=== PATIENT | male | born 1935 | race Caucasian/White ===

== ENCOUNTER → 2017-07-15 | Outpatient (CLI) | payer MEDICARE ==
[2017-07-15 15:01] LABS: BASOPHILS % (AUTO) 0 % (0-10); EOSINOPHILS # (AUTO) 0.1 10^3/uL (0.0-0.3); EOSINOPHILS % (AUTO) 1 % (0-10); HEMATOCRIT 44 % (40-54); HEMOGLOBIN 14.6 G/DL (13.3-17.7); LYMPHOCYTES # (AUTO) 1.3 X 10^3 (1.0-4.0); LYMPHOCYTES % (AUTO) 15 % (12-44); MEAN CORPUSCULAR HEMOGLOBIN 32 PG (25-34); MEAN CORPUSCULAR HGB CONC 33 G/DL (32-36); MEAN CORPUSCULAR VOLUME 98 FL (80-99); MEAN PLATELET VOLUME 10.5 FL (7.4-10.4); MONOCYTES # (AUTO) 0.9 X 10^3 (0.0-1.0); MONOCYTES % (AUTO) 10 % (0-12); NEUTROPHILS # (AUTO) 6.7 X 10^3 (1.8-7.8); NEUTROPHILS % (AUTO) 74 % (42-75); PLATELET COUNT 282 10^3/uL (130-400); RED BLOOD COUNT 4.55 10^6/uL (4.35-5.85); RED CELL DISTRIBUTION WIDTH 14.1 % (10.0-14.5)
[2017-07-15 15:16] LABS: ALANINE AMINOTRANSFERASE 32 U/L (0-55); ALBUMIN 4.1 GM/DL (3.2-4.5); ALKALINE PHOSPHATASE 84 U/L (40-136); BILIRUBIN,TOTAL 1.3 MG/DL (0.1-1.0); BUN/CREATININE RATIO 23; CALCIUM 9.3 MG/DL (8.5-10.1); CARBON DIOXIDE 21 MMOL/L (21-32); CHLORIDE 109 MMOL/L (98-107); CREATININE SERUM 0.94 MG/DL (0.60-1.30); GFR ESTIMATED > 60; GLUCOSE 117 MG/DL (70-105); POTASSIUM 4.6 MMOL/L (3.6-5.0); SODIUM 140 MMOL/L (135-145); TOTAL PROTEIN 7.4 GM/DL (6.4-8.2)
== END ==
LOC: CARD 14:45
PROVIDERS: ATTEND Nurse Practitioner Family
DX: R53.83 Other fatigue (principal); R06.02 Shortness of breath; R60.0 Localized edema; I52 Other heart disorders in diseases classified elsewhere
CPT/HCPCS: 36415; 80053; 83880; 84443; 85025; 93005

== ENCOUNTER → 2017-07-16 | Outpatient (CLI) | payer MEDICARE ==
[~2017-07-16] MED LIST: ACET-2267 PO; ACET-77 PO; APIX5TAB PO; BARIUM SUSPENSION 2.1% (VANILLA SILQ) 450 ML PO ONE; CATHETER FLUSH 10 ML SYR IV PRN; CHLO473M4 MM; ENAL5TAB PO; FURO40TA4 PO; IOHEXOL 350 MG/ML 100 ML (OMNIPAQUE 350) VIAL IV ONE; LEVO100T7 PO; LEVO50TA6 PO; MELA3TAB PO; METO-395 PO; METO5TAB6 PO; NS 250 ML (IVPB) BAG IV ONE; POTA-51 PO; POTA20TA8 PO; TRAZ-189 PO
--- NOTE | 2017-07-16 12:05 | Diagnostic Imaging Report ---
PROCEDURE: CT abdomen and pelvis with contrast. TECHNIQUE: Multiple contiguous axial images were obtained through the abdomen and pelvis after administration of intravenous contrast. INDICATION: Prostate carcinoma, followup. COMPARISON: Comparison is made with prior CT from 04/25/2015. FINDINGS: There has been development of moderate-sized bilateral pleural effusions. No basilar infiltrates or masses are seen. No discrete liver mass is identified. There appear to be small stones within the gallbladder. The cystic-appearing lesion in the region of the pancreatic head appears stable. No pancreatic or biliary duct dilatation is seen. The spleen is unremarkable. No adrenal mass is detected. The kidneys are unremarkable. The aorta is non-aneurysmal. The visualized bowel loops are normal caliber. There is extensive colonic diverticulosis but no evidence of acute diverticulitis. The small bowel is decompressed. There is a small amount of perihepatic ascites. There is also moderate free fluid identified in the pelvis. The bladder is decompressed. Postsurgical changes of prostatectomy are seen. There is some fluid in the presacral region. No inguinal or iliac lymphadenopathy is seen. No definite central retroperitoneal or mesenteric lymphadenopathy is seen. There are postoperative changes to the right hip. Sclerotic lesion in the sacrum on the left appears stable. No new sclerotic lesions are seen. There is significant lower lumbar degenerative change noted. IMPRESSION: 1. Development of moderate-sized bilateral pleural effusions. 2. Cholelithiasis. 3. Uncomplicated colonic diverticulosis. 4. Development of perihepatic and moderate pelvic free fluid, etiology indeterminate. No free air or loculated fluid collection is identified. Dictated by: Dictated on workstation # [id number]
--- NOTE | 2017-07-16 15:29 | Diagnostic Imaging Report ---
EXAM: Nuclear medicine whole body bone scan. DATE: July 16, 2017. INDICATION: 82-year-old male, history of prostate cancer. COMPARISON: Whole body bone scan, April 25, 2015. CT abdomen and pelvis, July 16, 2017. FINDINGS: 26.4 mCi of technetium-labeled MDP radiotracer was administered. Delayed subsequent whole body bone scan images were subsequently obtained. Additional projections at the level of the neck and thorax were also provided. There is urinary contamination present. The additional area of radiotracer uptake overlying midline may relate to radiotracer activity in the urinary bladder. There is radiotracer activity adjacent to the iliac side of the bilateral sacroiliac joints which is likely degenerative related. There is no identified radiotracer activity to correlate with the sclerotic lesion to the left of midline within the sacrum. This lesion measures larger in size on July 16, 2017, compared to prior CT chest, abdomen, and pelvis of March 16, 2012. Current size is 14 mm compared to 10 mm previously. Internal attenuation is measured at 947 Hounsfield units. There is radiotracer activity on the right at the level of L5 which is likely relating to degenerative changes. There is no identified radiotracer avid lesion which is concerning for bone metastasis. IMPRESSION: 1. Sclerotic lesion in the sacrum to the left of midline measures 14 mm in size on July 16, 2017, and approximately 10 mm in size on March 16, 2012. This lesion has slightly increased in size over that time span. The lesion is not radiotracer avid. Internal attenuation is measured at 947 Hounsfield units. This may potentially reflect a benign bone island. 2. No identified radiotracer avid lesion which is concerning for osteoblastic bone metastasis. Dictated by: Dictated on workstation # [id number]
== END ==
LOC: RAD 10:29
PROVIDERS: ATTEND Urology
DX: Z08 Encounter for follow-up examination after completed treatment for malignant neoplasm (principal); J90 Pleural effusion, not elsewhere classified; K80.20 Calculus of gallbladder without cholecystitis without obstruction; K57.30 Diverticulosis of large intestine without perforation or abscess without bleeding; M89.9 Disorder of bone, unspecified; Z85.46 Personal history of malignant neoplasm of prostate; Z90.79 Acquired absence of other genital organ(s)
CPT/HCPCS: 74177; 78306

== ENCOUNTER 2017-07-20 07:41 | Inpatient (IN) | payer MEDICARE ==
[~2017-07-20] VITALS: Ht 175.3 cm; Wt 86.6 kg
--- OUTSIDE RECORDS SUMMARY | 2017-07-20 07:46 | XMS REPORT | Continuity of Care Document ---
Author Author [facility] Organization [facility] Address Unknown Phone Unavailable Allergies Active Description Code Type Severity Reaction Onset Reported/Identified Relationship to Patient Clinical Status Yes No Known Drug Allergies [id number] Drug Allergy Unknown N/A 04/25/2015 Medications There is no data. Problems Date Dx Coded Attending Type Code Diagnosis Diagnosed By 10/31/2014 SOLOMON GONZALES, LE R Ot 719.45 10/31/2014 SOLOMON GONZALES, LE R Ot V15.88 11/01/2014 Ot 185 11/01/2014 CAROLINE GONZALES, TUNDE Navarro Ot 185 11/01/2014 CAROLINE GONZALES, UTNDE Navarro Ot 562.10 11/01/2014 TUNDE VELAZQUEZ MD Ot 574.20 11/01/2014 TUNDE VELAZQUEZ MD Ot 793.3 11/01/2014 SOLOMON GONZALES, LE R Ot 719.45 11/01/2014 SOLOMON GONZALES, LE R Ot V15.88 11/21/2014 SOLOMON GONZALES, LE R Ot 719.45 11/21/2014 SOLOMON GONZALES, LE R Ot V15.88 11/30/2014 SOLOMON GONZALES, LE R Ot 719.45 11/30/2014 SOLOMON GONZALES, LE R Ot V15.88 05/22/2015 Ot C61 05/23/2015 Ot C61 07/14/2017 Ot 185 MALIGN NEOPL PROSTATE 07/14/2017 CAROLINE GONZALES, TUNDE Navarro Ot 185 MALIGN NEOPL PROSTATE 07/14/2017 CAROLINE GONZALES, TUNDE Navarro Ot 562.10 DIVERTICULOSIS COLON (W/O MENT OF HEMORR 07/14/2017 CAROLINE GONZALES, TUNDE Navarro Ot 574.20 CHOLELITHIASIS NOS 07/14/2017 CAROLINE GONZALES, TUNDE Navarro Ot 793.3 NOSP (ABN) FINDINGS ON RADIOLOGICAL OT 07/14/2017 LE CARBAJAL MD R Ot 719.45 JOINT PAIN-PELVIS 07/14/2017 LE CARBAJAL MD Ot V15.88 HISTORY OF FALL 07/14/2017 Ot C61 MALIGNANT NEOPLASM OF PROSTATE 07/15/2017 Ot 185 MALIGN NEOPL PROSTATE 07/15/2017 TUNDE VELAZQUEZ MD Ot 185 MALIGN NEOPL PROSTATE 07/15/2017 TUNDE VELAZQUEZ MD Ot 562.10 DIVERTICULOSIS COLON (W/O MENT OF HEMORR 07/15/2017 TUNDE VELAZQUEZ MD Ot 574.20 CHOLELITHIASIS NOS 07/15/2017 TUNDE VELAZQUEZ MD Ot 793.3 NOSP (ABN) FINDINGS ON RADIOLOGICAL OT 07/15/2017 LE CARBAJAL MD Ot 719.45 JOINT PAIN-PELVIS 07/15/2017 LE CARBAJAL MD Ot V15.88 HISTORY OF FALL 07/15/2017 Ot C61 MALIGNANT NEOPLASM OF PROSTATE 07/16/2017 Ot 185 MALIGN NEOPL PROSTATE 07/16/2017 UTNDE VELAZQUEZ MD Ot 185 MALIGN NEOPL PROSTATE 07/16/2017 TUNDE VELAZQUEZ MD Ot 562.10 DIVERTICULOSIS COLON (W/O MENT OF HEMORR 07/16/2017 TUNDE VELAZQUEZ MD Ot 574.20 CHOLELITHIASIS NOS 07/16/2017 TUNDE VELAZQUEZ MD Ot 793.3 NOSP (ABN) FINDINGS ON RADIOLOGICAL OT 07/16/2017 LE CARBAJAL MD Ot 719.45 JOINT PAIN-PELVIS 07/16/2017 LE CARBAJAL MD Ot V15.88 HISTORY OF FALL 07/16/2017 Ot C61 MALIGNANT NEOPLASM OF PROSTATE 07/16/2017 ANNMARIE ARANA WIRELESS TELEGRAPHER Ot R53.83 OTHER FATIGUE 07/16/2017 ANNMARIE ARANA WIRELESS TELEGRAPHER Ot I52 OTHER HEART DISORDERS IN DISEASES CLASSI 07/16/2017 ANNMARIE ARANA WIRELESS TELEGRAPHER Ot R06.02 SHORTNESS OF BREATH 07/16/2017 ANNMARIE ARANA WIRELESS TELEGRAPHER Ot R53.83 OTHER FATIGUE 07/16/2017 ANNMARIE ARANA WIRELESS TELEGRAPHER Ot R60.0 LOCALIZED EDEMA Procedures There is no data. Results There is no data. Encounters ACCT No. Visit Date/Time Discharge Status Pt. Type Provider Facility Loc./Unit Complaint [id number] 07/16/2017 10:29:00 07/16/2017 23:59:59 CLS Outpatient TUNDE VELAZQUEZ MD [facility] RAD PROSTATE CANCER [id number] 07/15/2017 14:45:00 07/15/2017 23:59:59 CLS Outpatient ANNMARIE ARANA APRN [facility] CARD EDEMA OF BOTH LEGS, SOB,IRREGULAR HEART BEAT [id number] 07/06/2017 16:11:00 07/06/2017 23:59:59 CLS Preadmit TUNDE VELAZQUEZ MD [facility] RAD PROSTATE CANCER [id number] 10/29/2014 15:31:00 10/29/2014 23:59:59 CLS Outpatient LE CARBAJAL MD [facility] RAD 2 MO HX PAIN POST FALL [id number] 10/05/2013 10:46:00 10/05/2013 23:59:59 CLS Outpatient TUNDE VELAZQUEZ MD [facility] CARD PROSTATE CA [id number] 04/25/2015 11:49:00 Document Registration [id number] 03/16/2012 11:59:00 Document Registration [id number] 10/29/2014 15:35:24 ACT Document Registration
[2017-07-20 07:59] LABS: BASOPHILS % (AUTO) 0 % (0-10); EOSINOPHILS # (AUTO) 0.1 10^3/uL (0.0-0.3); EOSINOPHILS % (AUTO) 1 % (0-10); HEMATOCRIT 45 % (40-54); HEMOGLOBIN 14.7 G/DL (13.3-17.7); LYMPHOCYTES # (AUTO) 1.5 X 10^3 (1.0-4.0); LYMPHOCYTES % (AUTO) 14 % (12-44); MEAN CORPUSCULAR HEMOGLOBIN 33 PG (25-34); MEAN CORPUSCULAR HGB CONC 33 G/DL (32-36); MEAN CORPUSCULAR VOLUME 99 FL (80-99); MEAN PLATELET VOLUME 10.9 FL (7.4-10.4); MONOCYTES % (AUTO) 10 % (0-12); NEUTROPHILS # (AUTO) 8.1 X 10^3 (1.8-7.8); NEUTROPHILS % (AUTO) 75 % (42-75); PLATELET COUNT 251 10^3/uL (130-400); RED BLOOD COUNT 4.53 10^6/uL (4.35-5.85); RED CELL DISTRIBUTION WIDTH 14.7 % (10.0-14.5); WHITE BLOOD COUNT 10.7 10^3/uL (4.3-11.0)
[2017-07-20] MEDS ORDERED: VERAPAMIL 5 MG/2 ML (CALAN) VIAL IV ONE (08:15)
[2017-07-20 08:17] LABS: ALANINE AMINOTRANSFERASE 82 U/L (0-55); ALBUMIN 4.1 GM/DL (3.2-4.5); ALKALINE PHOSPHATASE 101 U/L (40-136); BILIRUBIN,TOTAL 1.8 MG/DL (0.1-1.0); BUN/CREATININE RATIO 20; CALCIUM 9.4 MG/DL (8.5-10.1); CARBON DIOXIDE 21 MMOL/L (21-32); CHLORIDE 108 MMOL/L (98-107); CREATININE SERUM 1.17 MG/DL (0.60-1.30); GFR ESTIMATED 60; GLUCOSE 137 MG/DL (70-105); POTASSIUM 4.5 MMOL/L (3.6-5.0); SODIUM 140 MMOL/L (135-145); TOTAL PROTEIN 7.3 GM/DL (6.4-8.2)
[2017-07-20 08:30] VITALS: BP 156/99
[2017-07-20 08:48] LABS: FREE T4 (FREE THYROXINE) 1.13 NG/DL (0.70-1.48)
--- NOTE | 2017-07-20 08:50 | Diagnostic Imaging Report ---
INDICATION: Shortness of breath PA and lateral chest obtained at 0839 a.m. There is no prior study for comparison. Heart is borderline enlarged. There is mild central vascular prominence without daysi edema. There is no consolidation or pneumothorax or pleural fluid. IMPRESSION: Borderline heart size with mild central vascular prominence. No daysi edema or consolidation or pleural fluid. Dictated by: Dictated on workstation # [id number]
[2017-07-20 08:55] VITALS: BP 129/85
--- NOTE | 2017-07-20 08:58 | ED General ---
General Chief Complaint: General Problems/Pain Stated Complaint: SOB,SWELLING OF LEGS AND TESTICLES Nursing Triage Note: TO ROOM REPORTS THAT HAS BEEN SOA FOR 2 WEEKS AFTER GETTING HORMONE IM AT DR VELAZQUEZ OFFICE. ALSO C/O SWELLING IN FEET,PANIC ATTACKS ,HIGH PSA, CRAMPING IN FEET AND LEGS. Nursing Sepsis Screen: No Definite Risk Source of Information: Patient, Old Records Exam Limitations: No Limitations History of Present Illness Date Seen by Provider: Jul 20, 2017 Time Seen by Provider: 07:45 Initial Comments This 82 year old gentleman presents to the ER with primary complaints of dyspnea and swelling in his legs, testicles and abdomen. He states these symptoms have been worsening for several days and notes that this started after receiving a "hormone injection" from Dr. Velazquez as treatment for a rising PSA. Patient also notes he has had muscle aching for years. This initially improved after stopping statins but has gradually worsened again. He denies any chest pain, cough, or fever. He has family history of congestive heart failure but no personal history of heart disease. Dr. Tejada is his primary care provider and Dr. Velazquez is his doll wig maker. He has atrial fibrillation on the monitor during assessment. He has no history of arrhythmias. Allergies and Home Medications Allergies Coded Allergies: No Known Drug Allergies (Unverified , 04/25/15) Patient Home Medication List Home Medication List Reviewed: Yes Review of Systems Constitutional: no symptoms reported EENTM: no symptoms reported Respiratory: see HPI Cardiovascular: see HPI Gastrointestinal: no symptoms reported Genitourinary: see HPI Musculoskeletal: see HPI Skin: no symptoms reported Psychiatric/Neurological: No Symptoms Reported Hematologic/Lymphatic: No Symptoms Reported Immunological/Allergic: no symptoms reported Past Chewkhf-Glgtfp-Fxbrjs Hx Patient Social History Alcohol Use: Denies Use Recreational Drug Use: No Smoking Status: Current Someday Smoker Type Used: Cigarettes Recent Foreign Travel: No Contact w/Someone Who Travel: No Recent Infectious Disease Expo: No Past Medical History Surgeries: Yes Orthopedic, Prostatectomy Respiratory: No Cardiac: Yes High Cholesterol Neurological: No Reproductive Disorders: Yes Genitourinary: Yes Prostate Problems Gastrointestinal: No Musculoskeletal: Yes Spasms Endocrine: Yes Hypothyroidsim HEENT: No Cancer: Yes Prostate Did You Recieve Any Treatments: No Psychosocial: Yes Anxiety Integumentary: No Family Medical History Heart Disease (multiple deaths in family members from CHF) Physical Exam Vital Signs Vital Signs - First Documented 07/20/17 07:41 Temp 96.5 Pulse 110 Resp 18 B/P (MAP) 198/3 (67) Pulse Ox 94 O2 Delivery Room Air Capillary Refill : Less Than 3 Seconds General Appearance: No Apparent Distress, WD/WN HEENT: PERRL/EOMI, Normal ENT Inspection Neck: Normal Inspection Respiratory: Lungs Clear, No Accessory Muscle Use, No Respiratory Distress, Decreased Breath Sounds (diminished breath sounds in the bases) Cardiovascular: Systolic Murmur, Irregularly Irregular, Tachycardia, Other ( pitting edema in the lower extremities bilateral and tense edema extending into the abdomen) Gastrointestinal: Normal Bowel Sounds, Non Tender, Distended Extremity: Pedal Edema, Swelling Neurologic/Psychiatric: Alert, Oriented x3, No Motor/Sensory Deficits, Normal Mood/Affect, surgical specialist II-XII Norm as Tested Skin: Normal Color, Warm/Dry Progress/Results/Core Measures Suspected Sepsis Recent Fever Within 48 Hours: No Infection Criteria Present: None New/Unexplained Altered Menta: No Sepsis Screen: No Definite Risk SIRS Temperature:96.5 Pulse: 82 Respiratory Rate: 18 Laboratory Tests 07/20/17 07:50: White Blood Count 10.7 Blood Pressure 156 /99 Mean: 118 Laboratory Tests 07/20/17 07:50: Creatinine 1.17, Platelet Count 251, Total Bilirubin 1.8H Results/Orders Lab Results Laboratory Tests Test 07/20/17 07:50 Range/Units White Blood Count 10.7 4.3-11.0 10^3/uL Red Blood Count 4.53 4.35-5.85 10^6/uL Hemoglobin 14.7 13.3-17.7 G/DL Hematocrit 45 40-54 % Mean Corpuscular Volume 99 80-99 FL Mean Corpuscular Hemoglobin 33 25-34 PG Mean Corpuscular Hemoglobin Concent 33 32-36 G/DL Red Cell Distribution Width 14.7 H 10.0-14.5 % Platelet Count 251 130-400 10^3/uL Mean Platelet Volume 10.9 H 7.4-10.4 FL Neutrophils (%) (Auto) 75 42-75 % Lymphocytes (%) (Auto) 14 12-44 % Monocytes (%) (Auto) 10 0-12 % Eosinophils (%) (Auto) 1 0-10 % Basophils (%) (Auto) 0 0-10 % Neutrophils # (Auto) 8.1 H 1.8-7.8 X 10^3 Lymphocytes # (Auto) 1.5 1.0-4.0 X 10^3 Monocytes # (Auto) 1.0 0.0-1.0 X 10^3 Eosinophils # (Auto) 0.1 0.0-0.3 10^3/uL Basophils # (Auto) 0.0 0.0-0.1 10^3/uL Sodium Level 140 135-145 MMOL/L Potassium Level 4.5 3.6-5.0 MMOL/L Chloride Level 108 H 98-107 MMOL/L Carbon Dioxide Level 21 21-32 MMOL/L Anion Gap 11 5-14 MMOL/L Blood Urea Nitrogen 23 H 7-18 MG/DL Creatinine 1.17 0.60-1.30 MG/DL Estimat Glomerular Filtration Rate 60 BUN/Creatinine Ratio 20 Glucose Level 137 H 70-105 MG/DL Calcium Level 9.4 8.5-10.1 MG/DL Total Bilirubin 1.8 H 0.1-1.0 MG/DL Aspartate Amino Transf (AST/SGOT) 74 H 5-34 U/L Alanine Aminotransferase (ALT/SGPT) 82 H 0-55 U/L Alkaline Phosphatase 101 40-136 U/L Troponin I < 0.30 <0.30 NG/ML C-Reactive Protein High Sensitivity 1.55 H 0.00-0.50 MG/DL B-Type Natriuretic Peptide 1021.0 H <100.0 PG/ML Total Protein 7.3 6.4-8.2 GM/DL Albumin 4.1 3.2-4.5 GM/DL Thyroid Stimulating Hormone (TSH) 5.70 H 0.35-4.94 UIU/ML Free Thyroxine 1.13 0.70-1.48 NG/DL My Orders Orders - HYUN MARTINEZ MD BNP (07/20/17 07:45) Cbc With Automated Diff (07/20/17 07:45) Comprehensive Metabolic Panel (07/20/17 07:45) Hs C Reactive Protein (07/20/17 07:45) Troponin I (07/20/17 07:45) Saline Lock/Iv-Start (07/20/17 07:45) Ekg Tracing (07/20/17 07:45) Monitor-Rhythm Ecg Trace Only (07/20/17 07:45) Chest Pa/Lat (2 View) (07/20/17 07:45) Verapamil Injection (Calan Injection) (07/20/17 08:15) Thyroid Stimulating Hormone (07/20/17 08:08) Free T4 (Free Thyroxine) (07/20/17 08:08) Apixaban Tablet (Eliquis Tablet) (07/20/17 09:45) Metoprolol Succinate (Xl) Tab (Toprol Xl (07/20/17 09:45) Furosemide Injection (Lasix Injection) (07/20/17 09:45) Medications Given in ED Current Medications Medications Dose Ordered Sig/Papo Route Start Time Stop Time Status Last Admin Dose Admin Apixaban 5 mg ONCE ONCE PO 07/20/17 09:45 07/20/17 09:46 07/20/17 09:41 5 MG Furosemide 80 mg ONCE ONCE IVP 07/20/17 09:45 07/20/17 09:46 07/20/17 09:40 80 MG Metoprolol Succinate 100 mg ONCE ONCE PO 07/20/17 09:45 07/20/17 09:46 07/20/17 09:41 100 MG Verapamil HCl 5 mg ONCE ONCE IV 07/20/17 08:15 07/20/17 08:16 DC 07/20/17 08:13 5 MG Vital Signs/I&O 07/20/17 07/20/17 07/20/17 07:41 08:30 08:55 Temp 96.5 Pulse 110 82 85 Resp 18 18 18 B/P (MAP) 198/3 (67) 156/99 (118) 129/85 (100) Pulse Ox 94 94 O2 Delivery Room Air Room Air Room Air Capillary Refill : Less Than 3 Seconds Blood Pressure Mean: 118 Progress Note : Progress Note Patient was noted to be in atrial fibrillation with RVR. He was also significantly hypertensive on initial assessment. He had notable fluid overload. He was given verapamil 5 mg by IV route which controlled his heart rate and blood pressure. Case was reviewed with Dr. Mcneill who requested Lasix 80 mg IV, Toprol-XL 100 mg by mouth, and Eliquis 5 mg. These were all administered in the emergency room. Patient was already feeling improved by the time of admission. CODE STATUS was discussed and patient wishes to be DNR. ECG Initial ECG Impression Date: Jul 20, 2017 Initial ECG Impression Time: 07:54 Initial ECG Rate: 111 Initial ECG Rhythm: A Fib/Flutter Initial ECG Impression: Atrial Fibrillation w/RVR Comment Atrial fibrillation with RVR. No acute ST elevation or depression to suggest ischemia. Diagnostic Imaging Diagonstic Imaging: Xray Plain Films/CT/US/NM/MRI: chest Comments Chest x-ray viewed by me and report reviewed. See report below: NAME: ARIANNA GIRARD [facility] REC#: [id number] PT STATUS: REG ER : 1935 PHYSICIAN: HYUN MARTINEZ MD ADMIT DATE: 07/20/17/ER Draft Date of Exam:07/20/17 CHEST PA/LAT (2 VIEW) INDICATION: Shortness of breath PA and lateral chest obtained at 0839 a.m. There is no prior study for comparison. Heart is borderline enlarged. There is mild central vascular prominence without daysi edema. There is no consolidation or pneumothorax or pleural fluid. IMPRESSION: Borderline heart size with mild central vascular prominence. No daysi edema or consolidation or pleural fluid. Dictated on workstation # [id number] Dict: 07/20/17 0835 Trans: 07/20/[address] [place] [address] [phone] Interpreted by: JARET OHARA MD Departure Communication (Admissions) Time/Spoke to Admitting Phy: 09:30 Dr. Medrano Time/Spoke to Consulting Phy: 09:30 Dr. Mcneill Impression Primary Impression: New onset atrial fibrillation Additional Impressions: Atrial fibrillation with RVR Fluid overload Qualified Codes: E87.70 - Fluid overload, unspecified Disposition: ADMITTED INPATIENT Condition: Improved Admissions Decision to Admit Reason: Admit from ER (General) Decision to Admit/Date: Jul 20, 2017 Time/Decision to Admit Time: 08:00 Departure-Patient Inst. Referrals: LE TEJADA MD (PCP/Family) Primary Care Physician HYUN MARTINEZ MD Jul 20, 2017 08:58
[2017-07-20] MEDS ORDERED: FUROSEMIDE 40 MG/4 ML INJ (LASIX) IVP ONE (09:45)
[2017-07-20] MEDS ORDERED: meTOproloL SUCCINATE 50 MG (TOPROL XL) TAB PO ONE (09:45)
[2017-07-20] MEDS ORDERED: APIXABAN 5 MG (ELIQUIS) TABLET PO ONE (09:45)
[2017-07-20 10:00] VITALS: BP 154/106
[2017-07-20] MEDS ORDERED: CATHETER FLUSH 10 ML SYR IV PRN (11:30)
--- NOTE | 2017-07-20 11:50 | Consultation-Cardiology ---
HPI-Cardiology Cardiology Consultation: Date of Consultation 07/20/17 Time Seen by Provider: 11:30 Date of Admission 07-20-17 Attending Physician Florence Medrano MD Admitting Physician Rico Tejada MD Consulting Physician Toni Mcneill MD HPI: Chief Complaint: New onset a-fib with RVR Anasarca Dyspnea Mr. Girard is an 82 year old male admitted to ICU 4 from the ED with new onset dyspnea, edema and a-fib with RVR. He reports approx 2 weeks ago he received a hormone injection d/t rising PSA. He states he has had some CHENEY for quite some time, however it became progressive over the last 2 weeks. He reports "panic attacks" and not being able to sleep for approx a week. He reports he wakes up suddenly with a panic attack and then can not go back to sleep. He states his son (who lives with him) told him he has episodes of apnea when sleeping. He reports a feeling of a rapid heart beat and fullness in his chest. No c/o CP. He reports progressive bilat LE edema, scrotal edema and abdominal distension. He states he has seen his PCP and had some lab done. He reports increasing generalized weakness. He does not report any syncope or near syncope. No c/o fever or chills. No c/o n/v/d. Review of Systems-Cardiology Review of Systems Constitutional: No chills, No fever; malaise Eyes: No vision change Ears/Nose/Throat: No epistaxis Respiratory: As described under HPI Cardiovascular: As described under HPI Gastrointestinal: No constipation, No diarrhea, No nausea, No vomiting Genitourinary: No dysuria, No hematuria Musculoskeletal: no symptoms reported Skin: No rash, No ulcerations Psychiatric/Neurological: anxiety; No focal weakness, No syncope Hematologic: No bleeding abnormalities MAP-Fuaswh-Ieiuwy Hx Patient Social History Alcohol Use: Denies Use Recreational Drug Use: No Smoking Status: Current Someday Smoker Type Used: Cigarettes Recent Foreign Travel: No Recent Infectious Disease Expo: No Hospitalization with Isolation: Denies Past Medical History PMH As described under Assessment. Family Medical History Family Medical History: He reports his father and brothers had CHF. Allergies and Home Medications Allergies Coded Allergies: No Known Drug Allergies (Unverified , 04/25/15) Home Medications Levothyroxine Sodium 100 Mcg Tablet, 100 MCG PO DAILY, (Reported) Physical Exam-Cardiology Physical Exam Vital Signs/I&O 07/20/17 07/21/17 07/21/17 07/21/17 20:00 00:00 01:00 04:00 Temp 98.0 96.8 96.3 Pulse 72 74 71 71 Resp 18 20 20 B/P (MAP) 130/89 (103) 117/80 (92) 128/87 (101) Pulse Ox 95 96 93 O2 Delivery Nasal Cannula Room Air Room Air O2 Flow Rate 2.00 07/21/17 00:00 Intake Total 480 ml Output Total 1600 ml Balance -1120 ml Capillary Refill : Less Than 3 Seconds Constitutional: AAO x 3, well-developed, well-nourished HEENT: PERRL, hearing is well preserved, oral hygience is good; No xanthelasmas are seen Neck: carotid bruit, carotid pulses are 2 + bilaterally Respiratory: No accessory muscle use, No respiratory distress; lungs clear to auscultation, other (dyspnea on conversation) Cardiovascular: irregularly irregular, JVD, S1 and S2, systolic murmur Gastrointestinal: distended, audible bowel sounds Rectal: deferred Extremities: significant edema (bilat 2-3 (+) Lower extremity edema and scrotal edema) Neurologic/Psychiatric: grossly intact, power is 5/5 both on sides Skin: No rash, No ulcerations Data Review Labs Laboratory Tests 07/21/17 03:55: White Blood Count 10.1, Red Blood Count 4.26L, Hemoglobin 13.7, Hematocrit 42, Mean Corpuscular Volume 99, Mean Corpuscular Hemoglobin 32, Mean Corpuscular Hemoglobin Concent 33, Red Cell Distribution Width 14.8H, Platelet Count 238, Mean Platelet Volume 11.2H, Neutrophils (%) (Auto) 69, Lymphocytes (%) (Auto) 20 , Monocytes (%) (Auto) 11, Eosinophils (%) (Auto) 1, Basophils (%) (Auto) 0, Neutrophils # (Auto) 6.9, Lymphocytes # (Auto) 2.0, Monocytes # (Auto) 1.1H, Eosinophils # (Auto) 0.1, Basophils # (Auto) 0.0, Sodium Level 142, Potassium Level 4.6, Chloride Level 105, Carbon Dioxide Level 24, Anion Gap 13, Blood Urea Nitrogen 32H, Creatinine 1.29, Estimat Glomerular Filtration Rate 53, BUN/ Creatinine Ratio 25, Glucose Level 104, Calcium Level 9.1, Magnesium Level 2.2, Total Bilirubin 1.6H, Aspartate Amino Transf (AST/SGOT) 255H, Alanine Aminotransferase (ALT/SGPT) 210H, Alkaline Phosphatase 94, Total Protein 6.4, Albumin 3.7, Triglycerides Level 72, Cholesterol Level 119, LDL Cholesterol Direct 80, VLDL Cholesterol 14, HDL Cholesterol 29L Radiology NAME: ARIANNA GIRARD [facility] REC#: [id number] PT STATUS: REG ER : 1935 PHYSICIAN: HYUN MARTINEZ MD ADMIT DATE: 07/20/17/ER Signed Date of Exam: 07/20/17 CHEST PA/LAT (2 VIEW) INDICATION: Shortness of breath PA and lateral chest obtained at 0839 a.m. There is no prior study for comparison. Heart is borderline enlarged. There is mild central vascular prominence without daysi edema. There is no consolidation or pneumothorax or pleural fluid. IMPRESSION: Borderline heart size with mild central vascular prominence. No daysi edema or consolidation or pleural fluid. Dictated by: Dictated on workstation # [id number] Dict: 07/20/17 0835 Trans: 07/20/17 0912 Interpreted by: JARET OHARA MD Electronically signed by: JARET OHARA MD 07/20/17 0912 ECG Impression ECG Initial ECG Impression: Atrial Fibrillation w/RVR A/P-Cardiology Assessment/Admission Diagnosis New onset a-fib with RVR - first documented on EKG of 07-20-17 New onset of CHF New onset dyspnea New onset of anasarca Elevated liver enzymes possibly d/t hepatobiliary congestion H/O prostate cancer with prostatectomy greater than 10 years ago Hypothyroidism - replacement tx (TSH 5.7 on 07-20-17) Symptoms suggestive of sleep apnea - advise out pt tx HLD - intolerant to statin tx d/t gen muscle discomfort EKTA ADAMS Jul 20, 2017 11:49
[2017-07-20] MEDS ORDERED: LEVO100T7 PO (13:39)
[2017-07-20] MEDS: CATHETER FLUSH 10 ML SYR IV SCH ×2 (14:00→21:24)
--- NOTE | 2017-07-20 14:56 | Consultation-Cardiology ---
HPI-Cardiology Cardiology Consultation: Date of Consultation 07/20/17 Time Seen by Provider: 14:15 Date of Admission Attending Physician Florence Medrano MD Admitting Physician Rico Tejada MD Consulting Physician SHOBHA YOUSSEF MD, FACP, FACC HPI: Chief Complaint: Reason for consultation: New onset a-fib with RVR, generalized swelling, shortness of breath Mr. Dempsey is an 82 year old male admitted to ICU 4 from the ED with new onset dyspnea, edema and a-fib with RVR. He reports approx 2 weeks ago he received a hormone injection d/t rising PSA. He states he has had some CHENEY for quite some time, however it became progressive over the last 2 weeks. He reports "panic attacks" and not being able to sleep for approx a week. He reports he wakes up suddenly with a panic attack and then can not go back to sleep. He states his son (who lives with him) told him he has episodes of apnea when sleeping. He reports a feeling of a rapid heart beat and fullness in his chest. No c/o CP. He reports progressive bilat LE edema, scrotal edema and abdominal distension. He states he has seen his PCP and had some lab done. He reports increasing generalized weakness. He does not report any syncope or near syncope. No c/o fever or chills. No c/o n/v/d. Review of Systems-Cardiology Review of Systems Constitutional: No chills, No fever; malaise Eyes: No vision change Ears/Nose/Throat: No epistaxis Respiratory: As described under HPI Cardiovascular: As described under HPI Gastrointestinal: No constipation, No diarrhea, No nausea, No vomiting Genitourinary: No dysuria, No hematuria Musculoskeletal: no symptoms reported Skin: No rash, No ulcerations Psychiatric/Neurological: anxiety; No focal weakness, No syncope Hematologic: No bleeding abnormalities SBD-Zkukwb-Bihjfy Hx Patient Social History Alcohol Use: Denies Use Recreational Drug Use: No Smoking Status: Never a Smoker Type Used: Cigarettes Recent Foreign Travel: No Recent Infectious Disease Expo: No Hospitalization with Isolation: Denies Physical Abuse Screen: No Sexual Abuse: No Past Medical History PMH As described under Assessment. Family Medical History Family Medical History: He reports his father and brothers had CHF. Allergies and Home Medications Allergies Coded Allergies: No Known Drug Allergies (Unverified , 04/25/15) Home Medications Levothyroxine Sodium 100 Mcg Tablet, 100 MCG PO DAILY, (Reported) Patient Home Medication List Home Medication List Reviewed: Yes Physical Exam-Cardiology Physical Exam Vital Signs/I&O 07/20/17 07/20/17 07/20/17 07/20/17 07:41 08:30 08:55 10:00 Temp 96.5 Pulse 110 82 85 84 Resp 18 18 18 18 B/P (MAP) 198/3 (67) 156/99 (118) 129/85 (100) 154/106 (122) Pulse Ox 94 94 94 O2 Delivery Room Air Room Air Room Air Room Air 07/20/17 07/20/17 11:13 11:30 Pulse 80 Resp 18 B/P (MAP) 117/98 Pulse Ox 94 97 O2 Delivery Room Air Room Air Capillary Refill : Less Than 3 Seconds Constitutional: AAO x 3, well-developed, well-nourished HEENT: PERRL, hearing is well preserved, oral hygience is good; No xanthelasmas are seen Neck: carotid bruit, carotid pulses are 2 + bilaterally Respiratory: No accessory muscle use, No respiratory distress; lungs clear to percussion, other (dyspnea on conversation, some basal fine and coarse crackles) Cardiovascular: irregularly irregular, JVD, S1 and S2, systolic murmur Gastrointestinal: distended, audible bowel sounds Rectal: deferred Genital/Rectal: other (no testicular swelling at the time of this exam) Extremities: significant edema (bilat 2-3 (+) Lower extremity edema and scrotal edema) Neurologic/Psychiatric: grossly intact, power is 5/5 both on sides Skin: No rash, No ulcerations Data Review Labs Laboratory Tests 07/20/17 07:50: White Blood Count 10.7, Red Blood Count 4.53, Hemoglobin 14.7, Hematocrit 45, Mean Corpuscular Volume 99, Mean Corpuscular Hemoglobin 33, Mean Corpuscular Hemoglobin Concent 33, Red Cell Distribution Width 14.7H, Platelet Count 251, Mean Platelet Volume 10.9H, Neutrophils (%) (Auto) 75, Lymphocytes (%) (Auto) 14 , Monocytes (%) (Auto) 10, Eosinophils (%) (Auto) 1, Basophils (%) (Auto) 0, Neutrophils # (Auto) 8.1H, Lymphocytes # (Auto) 1.5, Monocytes # (Auto) 1.0, Eosinophils # (Auto) 0.1, Basophils # (Auto) 0.0, Sodium Level 140, Potassium Level 4.5, Chloride Level 108H, Carbon Dioxide Level 21, Anion Gap 11, Blood Urea Nitrogen 23H, Creatinine 1.17, Estimat Glomerular Filtration Rate 60, BUN/ Creatinine Ratio 20, Glucose Level 137H, Calcium Level 9.4, Magnesium Level 2.3 , Total Bilirubin 1.8H, Aspartate Amino Transf (AST/SGOT) 74H, Alanine Aminotransferase (ALT/SGPT) 82H, Alkaline Phosphatase 101, Total Creatine Kinase 151, Troponin I < 0.30, C-Reactive Protein High Sensitivity 1.55H, B- Type Natriuretic Peptide 1021.0H, Total Protein 7.3, Albumin 4.1, Thyroid Stimulating Hormone (TSH) 5.70H, Free Thyroxine 1.13 Laboratory Tests 07/20/17 07:50 A/P-Cardiology Assessment/Admission Diagnosis New onset a-fib with RVR - first documented on EKG of 07-20-17 New onset of CHF: shortness of breath and swelling likely related to CHF Elevated liver enzymes possibly d/t hepatobiliary congestion H/O prostate cancer with prostatectomy greater than 10 years ago Hypothyroidism - replacement tx (TSH 5.7 on 07-20-17) Symptoms suggestive of sleep apnea - advise out pt tx HLD - intolerant to statin tx d/t gen muscle discomfort Hypothyroidism, by history Discussion and Recomendations * Diuretics for CHF * Toprol XL for vent rate control * Apixaban for stroke prophylaxis * Echo to eval etiology of CHF * Monitor labs * I spoke with him and answered CV-related questions Clinical Quality Measures DVT/VTE Risk/Contraindication: Risk Factor Score Per Nursin RFS Level Per Nursing on Admit: 4+=Very High SHOBHA YOUSSEF MD [facility] CCDS Jul 20, 2017 14:56
--- NOTE | 2017-07-20 15:56 | History & Physical-Hospitalist ---
History of Present Illness Source: patient Date Seen 07/20/17 Time Seen by Provider: 15:56 Attending Physician Nicko Medrano MD PCP Rico Tejada MD Referring Physician Date of Admission Jul 20, 2017 at 09:42 Home Medications & Allergies Home Medications Reviewed patient Home Medication Reconciliation performed by pharmacy medication reconciliations vending machine technician and/or nursing. Patients Allergies have been reviewed. Allergies Allergies Coded Allergies No Known Drug Allergies (Unverified04/25/15) Past Ptkhgav-Imyvba-Nnmisb Hx Patient Social History Alcohol Use: Denies Use Recreational Drug Use: No Smoking Status: Never a Smoker Type Used: Cigarettes Physical Abuse Screen: No Sexual Abuse: No Recent Foreign Travel: No Contact w/other who traveled: No Recent Infectious Disease Expo: No Seasonal Allergies Seasonal Allergies: No Past Medical History Surgeries: Orthopedic, Prostatectomy Cardiac: High Cholesterol Reproductive: Yes Genitourinary: Prostate Problems Musculoskeletal: Fractures, Spasms Endocrine: Hypothyroidsim Cancer: Prostate Did You Recieve Any Treatments: Yes What Type of Treatment Did You: Surgical Intervention Psychosocial: Anxiety History of Blood Disorders: No Adverse Reaction to Blood Nicole: No Family History Heart Disease (multiple deaths in family members from CHF) Physical Exam Physical Exam Vital Signs Vital Signs - First Documented 07/20/17 07:41 Temp 96.5 Pulse 110 Resp 18 B/P (MAP) 198/3 (67) Pulse Ox 94 O2 Delivery Room Air Capillary Refill : Less Than 3 Seconds Results Results/Procedures Labs Laboratory Tests 07/20/17 07:50 Patient resulted labs reviewed. Clinical Quality Measures DVT/VTE Risk/Contraindication: Risk Factor Score Per Nursin RFS Level Per Nursing on Admit: 4+=Very High NICKO MEDRANO MD Jul 20, 2017 3:56 pm
[2017-07-20 16:00] VITALS: BP 129/88
--- NOTE | 2017-07-20 16:30 | History & Physical-Hospitalist ---
History of Present Illness HPI/Chief Complaint Pt is an 82yoCM with with a PMH of hypothyroidism who presented to the ER with CC of swelling and SOB that started two weeks ago. He states the he was given a Lupron injection for his prostate cancer and then started to notice a lot of problems like muscle cramps, swelling, and shortness of breath. He was also waking up in the middle of the night with due to panic attacks over his concerns about his swelling and shortness of breath. His swelling progressed up to his abdomen so he decided to seek evaluation. Upon arrival to the ER he was found to be in a-fib with RVR. He denies a previous history of a-fib or any heart problems. Source: patient Date Seen 07/20/17 Time Seen by Provider: 16:00 Attending Physician Nicko Medrano MD PCP Rico Tejada MD Referring Physician Date of Admission Jul 20, 2017 at 9:42 am Home Medications & Allergies Home Medications Reviewed patient Home Medication Reconciliation performed by pharmacy medication reconciliations avionics repair technician and/or nursing. Patients Allergies have been reviewed. Allergies Allergies Coded Allergies No Known Drug Allergies (Unverified04/25/15) Past Ijrbzfn-Cvsddu-Vrmrie Hx Past Med/Social Hx: Reviewed and Corrections made Patient Social History Employed/Student: retired Alcohol Use: Denies Use Recreational Drug Use: No Smoking Status: Never a Smoker Type Used: Cigarettes Physical Abuse Screen: No Sexual Abuse: No Recent Foreign Travel: No Contact w/other who traveled: No Recent Infectious Disease Expo: No Seasonal Allergies Seasonal Allergies: No Past Medical History Surgeries: Orthopedic, Prostatectomy Cardiac: High Cholesterol Reproductive: Yes Genitourinary: Prostate Problems Musculoskeletal: Fractures, Spasms Endocrine: Hypothyroidsim Cancer: Prostate Did You Recieve Any Treatments: Yes What Type of Treatment Did You: Surgical Intervention Psychosocial: Anxiety History of Blood Disorders: No Adverse Reaction to Blood Nicole: No Family History Heart Disease (multiple deaths in family members from CHF) Review of Systems Constitutional: No chills, No fever EENTM: No blurred vision, No double vision, No nose congestion, No throat pain Respiratory: No cough; dyspnea on exertion, orthopnea, short of breath Cardiovascular: No chest pain; edema, palpitations Gastrointestinal: No abdominal pain, No constipation, No diarrhea, No nausea, No vomiting Genitourinary: No dysuria, No frequency Musculoskeletal: No joint pain, No muscle pain; muscle cramps Skin: No lesions, No rash Psychiatric/Neurological: Denies Headache, Denies Numbness, Denies Tingling Physical Exam Physical Exam Vital Signs Vital Signs - First Documented 07/20/17 07:41 Temp 96.5 Pulse 110 Resp 18 B/P (MAP) 198/3 (67) Pulse Ox 94 O2 Delivery Room Air Capillary Refill : Less Than 3 Seconds General Appearance: No Apparent Distress, WD/WN HEENT: PERRL/EOMI, Moist Mucous Membranes Neck: Non Tender, Supple; No Thyromegaly Respiratory: Lungs Clear, No Respiratory Distress Cardiovascular: Regular Rate, Rhythm, No JVD, Systolic Murmur Gastrointestinal: Normal Bowel Sounds, Non Tender, Soft, Distended Extremity: Normal Capillary Refill, No Calf Tenderness, Swelling (3+ to knees) Neurologic/Psychiatric: Alert, Oriented x3, No Motor/Sensory Deficits, Normal Mood/Affect Skin: Normal Color, Warm/Dry Results Results/Procedures Labs Laboratory Tests 07/20/17 07:50 Patient resulted labs reviewed. Imaging: Reviewed Imaging Report Imaging Date of Exam: 07/20/17 CHEST PA/LAT (2 VIEW) INDICATION: Shortness of breath PA and lateral chest obtained at 0839 a.m. There is no prior study for comparison. Heart is borderline enlarged. There is mild central vascular prominence without daysi edema. There is no consolidation or pneumothorax or pleural fluid. IMPRESSION: Borderline heart size with mild central vascular prominence. No daysi edema or consolidation or pleural fluid. Assessment/Plan Admission Diagnosis A-fib with RVR, acutely decompensated heart failure Admission Status: Inpatient Order (span 2 midnights) Reason for Inpatient Admission: new onset HF, needs IV diuretics and work up Diagnosis/Problems Diagnosis/Problems (1) Atrial fibrillation with RVR Status: Acute Assessment & Plan: Continue Topril XL Started on Eliquis Monitor on telemetry Rate improved- not on cardizem gtt Cardiology consulted, appreciate recs (2) Heart failure Assessment & Plan: No known history of heart failure Appears to be acutely decompensated though Cardiology consulted, appreciate recs Echo ordered continue Lasix monitor I/Os Na and fluid restriction Qualifiers: Heart failure type: unspecified Heart failure chronicity: acute Qualified Codes: I50.9 - Heart failure, unspecified (3) Prostate cancer Assessment & Plan: Follows with Dr Christianne Will consult given concern about side effect from Lupron (4) Hypothyroidism Assessment & Plan: TSH elevated by T4 normal Will need to follow as outpatient Qualifiers: Hypothyroidism type: acquired Qualified Codes: E03.9 - Hypothyroidism, unspecified (5) Prophylactic measure Assessment & Plan: Eliquis Heart Healthy Diet saline lock Clinical Quality Measures DVT/VTE Risk/Contraindication: Risk Factor Score Per Nursin RFS Level Per Nursing on Admit: 4+=Very High NICKO MEDRANO MD Jul 20, 2017 4:30 pm
[2017-07-20] MEDS: FUROSEMIDE 40 MG/4 ML INJ (LASIX) IVP SCH (17:46)
[2017-07-20 20:00] VITALS: BP 130/89
[2017-07-20] MEDS: APIXABAN 5 MG (ELIQUIS) TABLET PO SCH (21:24)
[2017-07-21] VITALS: BP 117/80
[2017-07-21 04:00] VITALS: BP 128/87
[2017-07-21 04:22] LABS: BASOPHILS % (AUTO) 0 % (0-10); EOSINOPHILS # (AUTO) 0.1 10^3/uL (0.0-0.3); EOSINOPHILS % (AUTO) 1 % (0-10); HEMATOCRIT 42 % (40-54); HEMOGLOBIN 13.7 G/DL (13.3-17.7); LYMPHOCYTES % (AUTO) 20 % (12-44); MEAN CORPUSCULAR HEMOGLOBIN 32 PG (25-34); MEAN CORPUSCULAR HGB CONC 33 G/DL (32-36); MEAN CORPUSCULAR VOLUME 99 FL (80-99); MEAN PLATELET VOLUME 11.2 FL (7.4-10.4); MONOCYTES # (AUTO) 1.1 X 10^3 (0.0-1.0); MONOCYTES % (AUTO) 11 % (0-12); NEUTROPHILS # (AUTO) 6.9 X 10^3 (1.8-7.8); NEUTROPHILS % (AUTO) 69 % (42-75); PLATELET COUNT 238 10^3/uL (130-400); RED BLOOD COUNT 4.26 10^6/uL (4.35-5.85); RED CELL DISTRIBUTION WIDTH 14.8 % (10.0-14.5); WHITE BLOOD COUNT 10.1 10^3/uL (4.3-11.0)
[2017-07-21 04:47] LABS: ALBUMIN 3.7 GM/DL (3.2-4.5); BILIRUBIN,TOTAL 1.6 MG/DL (0.1-1.0); CALCIUM 9.1 MG/DL (8.5-10.1); CREATININE SERUM 1.29 MG/DL (0.60-1.30); MAGNESIUM 2.2 MG/DL (1.8-2.4); POTASSIUM 4.6 MMOL/L (3.6-5.0); TOTAL PROTEIN 6.4 GM/DL (6.4-8.2)
[2017-07-21] MEDS: CATHETER FLUSH 10 ML SYR IV SCH ×3 (06:05→20:09)
[2017-07-21] MEDS: KCL 20 MEQ TAB (K-DUR) PO SCH (06:06)
[2017-07-21] MEDS: FUROSEMIDE 40 MG/4 ML INJ (LASIX) IVP SCH ×2 (06:06→17:14)
[2017-07-21] MEDS: meTOprolol SUCCINATE 100 MG (TOPROL XL) TAB PO SCH (08:38)
[2017-07-21] MEDS: APIXABAN 5 MG (ELIQUIS) TABLET PO SCH ×2 (08:38→20:09)
[2017-07-21 08:39] VITALS: BP 137/79
--- NOTE | 2017-07-21 09:54 | Progress Note-Hospitalist ---
Subjective HPI/CC On Admission Date Seen by Provider: Jul 21, 2017 Time Seen by Provider: 09:45 Pt is an 82yoCM with with a PMH of hypothyroidism who presented to the ER with CC of swelling and SOB that started two weeks ago. He states the he was given a Lupron injection for his prostate cancer and then started to notice a lot of problems like muscle cramps, swelling, and shortness of breath. He was also waking up in the middle of the night with due to panic attacks over his concerns about his swelling and shortness of breath. His swelling progressed up to his abdomen so he decided to seek evaluation. Upon arrival to the ER he was found to be in a-fib with RVR. He denies a previous history of a-fib or any heart problems. Subjective/Events-last exam Pt reports feeling better today but still SOB with movement. Also complains of muscle aches and poor sleeping for which he is concerned that he has ESDRAS. He believes he snores but he is unsure. Objective Exam Vital Signs Vital Signs Date Time Temp Pulse Resp B/P (MAP) Pulse Ox O2 Delivery O2 Flow Rate FiO2 07/21/17 08:39 96.5 82 18 137/79 (98) 98 Room Air 07/20/17 20:00 2.00 Capillary Refill : Less Than 3 Seconds General Appearance: No Apparent Distress, WD/WN, Anxious Respiratory: Lungs Clear, No Respiratory Distress Cardiovascular: Systolic Murmur, Irregularly Irregular Gastrointestinal: Normal Bowel Sounds, Soft, Distended Extremity: No Calf Tenderness, Pedal Edema Neurologic/Psychiatric: Alert, Oriented x3, Normal Mood/Affect Results/Procedures Lab Laboratory Tests 07/21/17 03:55 Patient resulted labs reviewed. Imaging: Reviewed Imaging Report Assessment/Plan Assessment and Plan Assess & Plan/Chief Complaint A-fib with RVR Diagnosis/Problems Diagnosis/Problems (1) Atrial fibrillation with RVR Status: Acute Assessment & Plan: Continue Topril XL Cont Eliquis Monitor on telemetry Rate improved- not on cardizem gtt Cardiology consulted, appreciate recs (2) Heart failure Assessment & Plan: No known history of heart failure Appears to be acutely decompensated though Cardiology consulted, appreciate recs Echo pending continue Lasix IV monitor I/Os Na and fluid restriction Discussed with kavita Tran with transfer to the floor Qualifiers: Heart failure type: unspecified Heart failure chronicity: acute Qualified Codes: I50.9 - Heart failure, unspecified (3) Prostate cancer Assessment & Plan: Follows with Dr Faust Will consult given concern about side effect from Lupron (4) Hypothyroidism Assessment & Plan: TSH elevated by T4 normal Will need to follow as outpatient as just increased to 100mcg less than 1 month ago per patient Qualifiers: Hypothyroidism type: acquired Qualified Codes: E03.9 - Hypothyroidism, unspecified (5) Prophylactic measure Assessment & Plan: Eliquis Heart Healthy Diet saline lock Clinical Quality Measures DVT/VTE Risk/Contraindication: Risk Factor Score Per Nursin RFS Level Per Nursing on Admit: 4+=Very High NICOK CELESTIN MD Jul 21, 2017 9:54 am
[2017-07-21 12:21] VITALS: BP 120/84
[2017-07-21 16:00] VITALS: BP 115/69
--- NOTE | 2017-07-21 16:45 | Progress Note-Cardiology ---
Cardiology SOAP Progress Note Subjective: Shortness of breath better, but not resolved No cp or palp or syncope Objective: I&O/Vital Signs 07/21/17 07/21/17 07/21/17 07/21/17 07:00 08:29 08:39 12:21 Temp 96.5 97.1 Pulse 87 82 77 Resp 18 14 B/P (MAP) 137/79 (98) 120/84 (96) Pulse Ox 98 94 O2 Delivery Room Air Room Air Room Air 07/21/17 07/21/17 07/21/17 13:05 16:00 16:28 Temp 97.4 Pulse 69 57 Resp 22 B/P (MAP) 115/69 (84) Pulse Ox 93 O2 Delivery Room Air Room Air 07/21/17 00:00 Intake Total 480 ml Output Total 1600 ml Balance -1120 ml Weight (Pounds): 197 Weight (Ounces): 3.0 Weight (Calculated Kilograms): 89.146867 Constitutional: AAO x 3, well-developed, well-nourished Respiratory: No accessory muscle use, No respiratory distress; lungs clear to percussion, other (dyspnea on conversation, some basal fine and coarse crackles) Cardiovascular: irregularly irregular, JVD, S1 and S2, systolic murmur Gastrointestional: distended, audible bowel sounds Genital/Rectal: other (no testicular swelling at the time of this exam) Extremities: significant edema (bilat 2-3 (+) Lower extremity edema and scrotal edema) Neurologic/Psychiatric: grossly intact, power is 5/5 both on sides Skin: No rash, No ulcerations Results/Procedures: Labs Laboratory Tests 07/21/17 03:55: White Blood Count 10.1, Red Blood Count 4.26L, Hemoglobin 13.7, Hematocrit 42, Mean Corpuscular Volume 99, Mean Corpuscular Hemoglobin 32, Mean Corpuscular Hemoglobin Concent 33, Red Cell Distribution Width 14.8H, Platelet Count 238, Mean Platelet Volume 11.2H, Neutrophils (%) (Auto) 69, Lymphocytes (%) (Auto) 20 , Monocytes (%) (Auto) 11, Eosinophils (%) (Auto) 1, Basophils (%) (Auto) 0, Neutrophils # (Auto) 6.9, Lymphocytes # (Auto) 2.0, Monocytes # (Auto) 1.1H, Eosinophils # (Auto) 0.1, Basophils # (Auto) 0.0, Sodium Level 142, Potassium Level 4.6, Chloride Level 105, Carbon Dioxide Level 24, Anion Gap 13, Blood Urea Nitrogen 32H, Creatinine 1.29, Estimat Glomerular Filtration Rate 53, BUN/ Creatinine Ratio 25, Glucose Level 104, Calcium Level 9.1, Magnesium Level 2.2, Total Bilirubin 1.6H, Aspartate Amino Transf (AST/SGOT) 255H, Alanine Aminotransferase (ALT/SGPT) 210H, Alkaline Phosphatase 94, Total Protein 6.4, Albumin 3.7, Triglycerides Level 72, Cholesterol Level 119, LDL Cholesterol Direct 80, VLDL Cholesterol 14, HDL Cholesterol 29L A/P: Assessment: Acute systolic CHF New onset a-fib with RVR - first documented on EKG of 07-20-17 Echo of 07/20/17: LVEF 40-45%, mod to sev enlargement of LA, mod to severe MR ( ecc jet along interatrial septum), trivial AI, mild to mod TR, PASP 50-55 mmHg 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 and/or ESDRAS Elevated liver enzymes possibly d/t hepatobiliary congestion H/O prostate cancer with prostatectomy greater than 10 years ago Hypothyroidism - replacement tx (TSH 5.7 on 07-20-17) Symptoms suggestive of sleep apnea - advise out pt tx HLD - intolerant to statin tx d/t gen muscle discomfort Hypothyroidism, by history Plan: * Increase diuretics for CHF * Toprol XL for vent rate control * Apixaban for stroke prophylaxis * Add low dose enalapril, if tolerated * Monitor labs * I spoke with him and his son and answered CV-related questions * I discussed his case with Dr Medrano this am SHOBHA YOUSSEF MD FACP FAC CCDS Jul 21, 2017 16:45
[2017-07-21 20:00] VITALS: BP 120/75
[2017-07-22] VITALS: BP 117/73
[2017-07-22 04:00] VITALS: BP 118/74
[2017-07-22] MEDS: FUROSEMIDE 40 MG/4 ML INJ (LASIX) IVP SCH (06:20)
[2017-07-22] MEDS: CATHETER FLUSH 10 ML SYR IV SCH ×3 (06:20→20:04)
[2017-07-22] MEDS: LEVOTHYROXINE 100 MCG (LEVOTHROID) TAB PO SCH (06:20)
[2017-07-22] MEDS: KCL 20 MEQ TAB (K-DUR) PO SCH (06:20)
[2017-07-22 06:53] LABS: BASOPHILS % (AUTO) 0 % (0-10); EOSINOPHILS # (AUTO) 0.1 10^3/uL (0.0-0.3); EOSINOPHILS % (AUTO) 1 % (0-10); HEMATOCRIT 43 % (40-54); LYMPHOCYTES # (AUTO) 1.2 X 10^3 (1.0-4.0); LYMPHOCYTES % (AUTO) 10 % (12-44); MEAN CORPUSCULAR HEMOGLOBIN 32 PG (25-34); MEAN CORPUSCULAR HGB CONC 33 G/DL (32-36); MEAN CORPUSCULAR VOLUME 99 FL (80-99); MEAN PLATELET VOLUME 11.7 FL (7.4-10.4); MONOCYTES # (AUTO) 1.1 X 10^3 (0.0-1.0); MONOCYTES % (AUTO) 9 % (0-12); NEUTROPHILS # (AUTO) 9.6 X 10^3 (1.8-7.8); NEUTROPHILS % (AUTO) 80 % (42-75); PLATELET COUNT 240 10^3/uL (130-400); RED BLOOD COUNT 4.33 10^6/uL (4.35-5.85); RED CELL DISTRIBUTION WIDTH 14.7 % (10.0-14.5)
[2017-07-22 07:17] LABS: ALANINE AMINOTRANSFERASE 180 U/L (0-55); ALBUMIN 3.8 GM/DL (3.2-4.5); ALKALINE PHOSPHATASE 104 U/L (40-136); BILIRUBIN,TOTAL 1.3 MG/DL (0.1-1.0); BUN/CREATININE RATIO 30; CALCIUM 8.7 MG/DL (8.5-10.1); CARBON DIOXIDE 28 MMOL/L (21-32); CHLORIDE 101 MMOL/L (98-107); CREATININE SERUM 1.02 MG/DL (0.60-1.30); GFR ESTIMATED > 60; GLUCOSE 111 MG/DL (70-105); POTASSIUM 3.5 MMOL/L (3.6-5.0); SODIUM 142 MMOL/L (135-145); TOTAL PROTEIN 6.6 GM/DL (6.4-8.2)
[2017-07-22 08:00] VITALS: BP 129/88
[2017-07-22] MEDS: meTOprolol SUCCINATE 100 MG (TOPROL XL) TAB PO SCH (08:41)
[2017-07-22] MEDS: APIXABAN 5 MG (ELIQUIS) TABLET PO SCH ×2 (08:41→20:04)
[2017-07-22] MEDS ORDERED: ENALAPRIL 2.5 MG (VASOTEC) TAB PO SCH (09:00)
--- NOTE | 2017-07-22 09:54 | Progress Note-Cardiology ---
Cardiology SOAP Progress Note Subjective: Sitting up in a chair at the bedside. Son at the bedside. He reports he is feeling much better today. He feels his SOB has improved. No c/o palpitations. Feels LE edema has improved. No further episodes of waking up "panicked". Objective: I&O/Vital Signs 07/22/17 07/22/17 07/22/17 07/22/17 00:00 04:00 08:00 08:12 Temp 98.1 97.2 97.5 Pulse 62 83 76 49 Resp 20 16 18 B/P (MAP) 117/73 (88) 118/74 (89) 129/88 (102) Pulse Ox 94 93 94 O2 Delivery Room Air Room Air Room Air 07/22/17 09:00 O2 Delivery Room Air 07/22/17 00:00 Intake Total 2020 ml Output Total 2 ml Balance 2018 ml Weight (Pounds): 194 Weight (Ounces): 1.0 Weight (Calculated Kilograms): 88.351037 Constitutional: AAO x 3, well-developed, well-nourished Respiratory: No accessory muscle use, No respiratory distress; lungs clear to percussion, other (dyspnea on conversation, some basal fine and coarse crackles) Cardiovascular: irregularly irregular; No JVD; S1 and S2, systolic murmur Gastrointestional: soft, audible bowel sounds Extremities: significant edema (bilat mild to mod edema) Neurologic/Psychiatric: grossly intact, power is 5/5 both on sides Skin: No rash, No ulcerations Results/Procedures: Labs Laboratory Tests 07/22/17 05:18: White Blood Count 12.0H, Red Blood Count 4.33L, Hemoglobin 14.0, Hematocrit 43, Mean Corpuscular Volume 99, Mean Corpuscular Hemoglobin 32, Mean Corpuscular Hemoglobin Concent 33, Red Cell Distribution Width 14.7H, Platelet Count 240, Mean Platelet Volume 11.7H, Neutrophils (%) (Auto) 80H, Lymphocytes (%) (Auto) 10L, Monocytes (%) (Auto) 9, Eosinophils (%) (Auto) 1, Basophils (%) (Auto) 0, Neutrophils # (Auto) 9.6H, Lymphocytes # (Auto) 1.2, Monocytes # (Auto) 1.1H, Eosinophils # (Auto) 0.1, Basophils # (Auto) 0.0, Sodium Level 142, Potassium Level 3.5L, Chloride Level 101, Carbon Dioxide Level 28, Anion Gap 13, Blood Urea Nitrogen 31H, Creatinine 1.02, Estimat Glomerular Filtration Rate > 60, BUN /Creatinine Ratio 30, Glucose Level 111H, Calcium Level 8.7, Total Bilirubin 1.3H, Aspartate Amino Transf (AST/SGOT) 118H, Alanine Aminotransferase (ALT/SGPT ) 180H, Alkaline Phosphatase 104, Total Protein 6.6, Albumin 3.8 Laboratory Tests 07/21/17 03:55 07/22/17 05:18 A/P: Assessment: Acute systolic CHF - clinically improving New onset a-fib with RVR - first documented on EKG of 07-20-17 - rate improved Echo of 07/20/17: LVEF 40-45%, mod to sev enlargement of LA, mod to severe MR ( ecc jet along interatrial septum), trivial AI, mild to mod TR, PASP 50-55 mmHg 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 and/or ESDRAS Elevated liver enzymes possibly d/t hepatobiliary congestion - improving H/O prostate cancer with prostatectomy greater than 10 years ago Hypothyroidism - replacement tx (TSH 5.7 on 07-20-17) Symptoms suggestive of sleep apnea - advise out pt tx HLD - intolerant to statin tx d/t gen muscle discomfort Hypothyroidism, by history Plan: * Continue diuretics for CHF - good response * Continue Toprol XL for vent rate control * Continue Apixaban for stroke prophylaxis * Continue low dose enalapril * Monitor labs * I spoke with him and his son and answered CV-related questions - questions regarding D/C planning answered * Increase activity * Replace potassium EKTA ADAMS Jul 22, 2017 09:54
[2017-07-22] MEDS ORDERED: KCL 20 MEQ TAB (K-DUR) PO NR (10:00)
--- NOTE | 2017-07-22 10:36 | Progress Note-Hospitalist ---
Subjective HPI/CC On Admission Date Seen by Provider: Jul 22, 2017 Time Seen by Provider: 10:30 Pt is an 82yoCM with with a PMH of hypothyroidism who presented to the ER with CC of swelling and SOB that started two weeks ago. He states the he was given a Lupron injection for his prostate cancer and then started to notice a lot of problems like muscle cramps, swelling, and shortness of breath. He was also waking up in the middle of the night with due to panic attacks over his concerns about his swelling and shortness of breath. His swelling progressed up to his abdomen so he decided to seek evaluation. Upon arrival to the ER he was found to be in a-fib with RVR. He denies a previous history of a-fib or any heart problems. Subjective/Events-last exam Pt reports feeling well today. His only complaint is that he did not sleep well. Objective Exam Vital Signs Vital Signs Date Time Temp Pulse Resp B/P (MAP) Pulse Ox O2 Delivery O2 Flow Rate FiO2 07/22/17 09:00 Room Air 07/22/17 08:12 49 07/22/17 08:00 97.5 18 129/88 (102) 94 07/20/17 20:00 2.00 Capillary Refill : Less Than 3 Seconds General Appearance: No Apparent Distress, WD/WN Respiratory: Lungs Clear, No Respiratory Distress Cardiovascular: No Murmur, Irregularly Irregular Extremity: No Calf Tenderness, Swelling (trace) Neurologic/Psychiatric: Alert, Oriented x3, Normal Mood/Affect Results/Procedures Lab Laboratory Tests 07/22/17 05:18 Patient resulted labs reviewed. Imaging: Reviewed Imaging Report Assessment/Plan Assessment and Plan Assess & Plan/Chief Complaint A-fib with RVR Diagnosis/Problems Diagnosis/Problems (1) Atrial fibrillation with RVR Status: Acute Assessment & Plan: Continue Topril XL Cont Eliquis Monitor on telemetry Cardiology consulted, appreciate recs (2) Heart failure Assessment & Plan: Echo shows systolic hear failure and mod to severe MR Cardiology consulted, appreciate recs continue Lasix monitor I/Os Na and fluid restriction Qualifiers: Heart failure type: systolic Heart failure chronicity: acute Qualified Codes: I50.21 - Acute systolic (congestive) heart failure (3) Prostate cancer Assessment & Plan: Urology consulted, appreciate recs (4) Hypothyroidism Assessment & Plan: TSH elevated by T4 normal Will need to follow as outpatient as just increased to 100mcg less than 1 month ago per patient Qualifiers: Hypothyroidism type: acquired Qualified Codes: E03.9 - Hypothyroidism, unspecified (5) Discharge planning issues Assessment & Plan: Is primary caregiver for 100% dependent is currently placed at [facility] He is considering placement as wel lat DC and would like to go to a different NH Discussed with social work, appreciate assistance in discharge planning I called and personally discussed this with his PCP Dr Tejada (6) Prophylactic measure Assessment & Plan: Eliquis Heart Healthy Diet saline lock Clinical Quality Measures DVT/VTE Risk/Contraindication: Risk Factor Score Per Nursin RFS Level Per Nursing on Admit: 4+=Very High Copy Copies To 1: LE TEJADA MD, KATELYN M MD Jul 22, 2017 10:36 am
--- NOTE | 2017-07-22 11:00 | Progress Note-Cardiology ---
Cardiology SOAP Progress Note Subjective: Shortness of breath is better No cp Swelling has improved No palp or syncope Objective: I&O/Vital Signs 07/22/17 07/22/17 07/22/17 07/22/17 00:00 04:00 08:00 08:12 Temp 98.1 97.2 97.5 Pulse 62 83 76 49 Resp 20 16 18 B/P (MAP) 117/73 (88) 118/74 (89) 129/88 (102) Pulse Ox 94 93 94 O2 Delivery Room Air Room Air Room Air 07/22/17 09:00 O2 Delivery Room Air 07/22/17 00:00 Intake Total 2020 ml Output Total 2 ml Balance 2018 ml Weight (Pounds): 194 Weight (Ounces): 1.0 Weight (Calculated Kilograms): 88.700080 Constitutional: AAO x 3, well-developed, well-nourished Respiratory: No accessory muscle use, No respiratory distress; lungs clear to percussion, other (dyspnea on conversation, some basal fine and coarse crackles) Cardiovascular: irregularly irregular; No JVD; S1 and S2, systolic murmur Gastrointestional: soft, audible bowel sounds Extremities: significant edema (bilat mild to mod edema) Neurologic/Psychiatric: grossly intact, power is 5/5 both on sides Skin: No rash, No ulcerations Results/Procedures: Labs Laboratory Tests 07/22/17 05:18: White Blood Count 12.0H, Red Blood Count 4.33L, Hemoglobin 14.0, Hematocrit 43, Mean Corpuscular Volume 99, Mean Corpuscular Hemoglobin 32, Mean Corpuscular Hemoglobin Concent 33, Red Cell Distribution Width 14.7H, Platelet Count 240, Mean Platelet Volume 11.7H, Neutrophils (%) (Auto) 80H, Lymphocytes (%) (Auto) 10L, Monocytes (%) (Auto) 9, Eosinophils (%) (Auto) 1, Basophils (%) (Auto) 0, Neutrophils # (Auto) 9.6H, Lymphocytes # (Auto) 1.2, Monocytes # (Auto) 1.1H, Eosinophils # (Auto) 0.1, Basophils # (Auto) 0.0, Sodium Level 142, Potassium Level 3.5L, Chloride Level 101, Carbon Dioxide Level 28, Anion Gap 13, Blood Urea Nitrogen 31H, Creatinine 1.02, Estimat Glomerular Filtration Rate > 60, BUN /Creatinine Ratio 30, Glucose Level 111H, Calcium Level 8.7, Total Bilirubin 1.3H, Aspartate Amino Transf (AST/SGOT) 118H, Alanine Aminotransferase (ALT/SGPT ) 180H, Alkaline Phosphatase 104, Total Protein 6.6, Albumin 3.8 Laboratory Tests 07/21/17 03:55 07/22/17 05:18 A/P: Assessment: Acute systolic CHF - clinically improving New onset a-fib with RVR - first documented on EKG of 07-20-17 - rate improved Echo of 07/20/17: LVEF 40-45%, mod to sev enlargement of LA, mod to severe MR ( ecc jet along interatrial septum), trivial AI, mild to mod TR, PASP 50-55 mmHg 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 and/or ESDRAS Elevated liver enzymes possibly d/t hepatobiliary congestion - improving H/O prostate cancer with prostatectomy greater than 10 years ago Hypothyroidism - replacement tx (TSH 5.7 on 07-20-17) Symptoms suggestive of sleep apnea - advise out pt tx HLD - intolerant to statin tx d/t gen muscle discomfort Hypothyroidism, by history Plan: * Continue diuretics for CHF - change to oral * Continue Toprol XL for vent rate control * Continue Apixaban for stroke prophylaxis * Increase enalapril * Replenish K * Monitor labs SHOBHA YOUSSEF MD FACP FACC CCDS Jul 22, 2017 11:00
--- NOTE | 2017-07-22 11:28 | Physical Therapy Evaluation ---
PT Evaluation-General Medical Diagnosis Admission Date Jul 20, 2017 at 09:42 Medical Diagnosis: A-fib with RVR Onset Date: Jul 20, 2017 Therapy Diagnosis Therapy Diagnosis: generalized debility Height/Weight Height (Feet): 5 Height (Inches): 9.00 Weight (Pounds): 194 Weight (Ounces): 1.0 Precautions Precautions/Isolations: Standard Precautions Weight Bear Status Right Lower Extremity: Right Weight Bearing/Tolerated Left Lower Extremity: Left Weight Bearing/Tolerated Referral Physician: Mitchell Reason for Referral: Evaluation/Treatment Medical History Pertinent Medical History: Hypothroidism, Smoking Additional Medical History anxiety Current History ED with bilateral LE edema and scrotal edema; panic attacks; high PSA/cramping Reviewed History: Yes Social History Home: Single Level Current Living Status: Children Entry Into Home: Stairs With Railing PT Steps Into Home: 3 Prior/Core FIM Prior Level of Function Functional [place] Measure 0=Not Assessed/NA 4=Minimal Assistance 1=Total Assistance 5=Supervision or Setup 2=Maximal Assistance 6=Modified [place] 3=Moderate Assistance 7=Complete [place] Bed Mobility: 7 Transfers (B,C,W/C) (FIM): 7 Gait: 7 PT Evaluation-Current Subjective Patient agrees to PT. No c/o. Pain Numeric Pain Scale: 0-No Pain Location: No Pain Reported Objective Patient Orientation: Normal For Age Problem Solving: Good ROM/Strength ROM Lower Extremities bilateral LE WNL Strength Lower Extremities 5/5 bilateral LE all planes grossly Integumentary/Posture Integumentary refer to nursing notes Bowel Incontinence: No Bladder Incontinence: No Posture WFL Neuromuscular (Tone, Coordination, Reflexes) grossly intact Sensory Vision: Functional Hearing: Functional Sensation Right Lower Extremit: Intact Sensation Left Lower Extremity: Intact Transfers Functional [place] Measure 0=Not Assessed/NA 4=Minimal Assistance 1=Total Assistance 5=Supervision or Setup 2=Maximal Assistance 6=Modified [place] 3=Moderate Assistance 7=Complete [place] Transfers (B, C, W/C) (FIM): 7 Scootin Rollin Supine to/from Sit: 7 Sit to/from Stand: 7 Gait Mode of Locomotion: Walk Anticipated Mode of Locomotion: Walk Gait (FIM): 6 Distance (FIM): 3=150 ft Distance: 500' Gait Level of Assist: 6 Gait Assistive Device: FWW Comments/Gait Description PT recommends FWW for distance for energy conservation. Otherwise, patient can be up in room independently. Stairs Stairs (FIM): 2 #of Steps: 4 Level of Assist: 5 Balance Sitting Static: Normal Sitting Dynamic: Normal Standing Static: Normal Standing Dynamic: Normal Assessment/Needs 82 y.o. male, has been instructed to ambulate PRN in hallway with FWW. Patient is also safe to be up ad javad in room/hallway independently. Due to patient LOF , no skilled PT intervention needed. RN is aware of findings. Rehab Potential: Fair PT Plan Treatment/Plan Treatment Plan: Discontinue PT, goals met Treatment Plan: Other Treatment Duration: Jul 22, 2017 Frequency: 1 time per week Estimated Hrs Per Day: .5 hour per day Patient and/or Family Agrees t: Yes Safety Risks/Education Patient Education: Safety Issues Teaching Recipient: Patient Teaching Methods: Discussion Response to Teaching: Verbalize Understanding Discharge Recommendations Therapy D/C Recommendations: Home w/ Family Support Equpiment Recommendations-D/C: Front Wheeled Walker (for use PRN for safety/ energy conservation) Time/GCodes Time In: 1100 Time Out: 1117 Total Billed Treatment Time: 17 Total Billed Treatment 1 visit EVModC 17 min G Codes Necessary: No JENNIFER GARZA PT Jul 22, 2017 11:28
[2017-07-22 12:00] VITALS: BP 120/73
--- NOTE | 2017-07-22 13:50 | CONSULTATION REPORT ---
DATE OF SERVICE: 07/22/2017 ATTENDING PHYSICIAN: Dr. Medrano. SUMMARY: An 82-year-old man with a known cancer of the prostate with a biochemical failure and gradually increase of his PSA. He had the open radical prostatectomy over 20 years ago in [place] and developed urinary incontinence. He used to go to [place] urologist that he did an injection of bulking agent, did not work, did an [employer] sling, it did not work and I had told him that his only hope was to have a sphincter, which is more major surgery and done at . He elected to live with the incontinence. We gave him a shot of Lupron earlier this month because of the cancer of the prostate. Two weeks later, he started having increased shortness of breath, which he had before the shot according to him and developed atrial fibrillation, congestive heart failure, fluid retention. He also had some panicky attack, but has also a lot of stress with his taking care of his from quite some time. He is getting better under the treatment and the care of Dr. Medrano and pressure tank operator and he is gradually getting to his normal. I have given Lupron shot to hundreds of people and never had a cardiac event. Sometime, the patients can have some personality changes but if indeed any problem from the Lupron, since the Lupron is longacting and will stay in the system for 4 months, those symptoms will continue and persist, which is not the case. IMPRESSION: 1. 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 2. Cardiac issues as above. PLAN: Keep the appointment with me at the office as previously planned and manage accordingly. This was explained to the patient. Job ID: [id number] DocumentID: [id number] Dictated Date: 07/22/2017 11:21:04 Hired Help Date: 07/22/2017 13:49:57 Dictated By: TUNDE VELAZQUEZ MD
--- NOTE | 2017-07-22 14:03 | Occupational Therapy Eval ---
OT Evaluation-General/PLF Medical Diagnosis Admission Date Jul 20, 2017 at 09:42 Medical Diagnosis: A-fib with RVR Onset Date: Jul 20, 2017 Therapy Diagnosis Therapy Diagnosis: Weakness Height/Weight Height (Feet): 5 Height (Inches): 9.00 Weight (Pounds): 194 Weight (Ounces): 1.0 Precautions Precautions/Isolations: Standard Precautions Safety Interventions: None Weight Bear Status Weight Bearing Restriction: Weight Bearing/Tolerated Referral Physician: Mitchell Referral Reason: Activity Tolerance, Self Care, Evaluation/Treatment, Strengthening/ROM Medical History Pertinent Medical History: Atrial Fib, Hypothroidism, Smoking Additional Medical History Hypothyroidism, prostate CA, prostatectomy Current History Pt. states that he began to become SOA at home. Also experienced swelling "all over." Came to ER. Reviewed History: Yes Social History Home: Single Level Current Living Status: Children Entry Into Home: Stairs With Railing Steps Into Home: 3 ADL-Prior Level of Function ADL PLOF Comments Pt. was independent with all self care tasks prior to this event. 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 Son lives with him. Son works. DME/Equipment: Shower DME/Equipment Comments Pt. states that he does not have a walker at home, but does not think he will need one. Occupation: [employer] Self: Yes OT Current Status Subjective No pain reported. Pt. states that he is feeling "much better." States that he ambulated earlier with PT, and did "well." States that he is feeling much more confident. Appearance Pt. up in chair. Pt. is dressed, and states that he was able to dress himself. Mental Status/Objective Patient Orientation: Person, Place, Time, Situation Current Glasses/Contacts: Yes Upper Extremity ROM WFL Upper Extremity Strength WFL ADL-Treatment Functional [place] Measure 0=Not Assessed/NA 4=Minimal Assistance 1=Total Assistance 5=Supervision or Setup 2=Maximal Assistance 6=Modified [place] 3=Moderate Assistance 7=Complete IndependenceIRFPAI Quality Coding Scale 6 Independent with activity with or without an assistive device 5 Patient requires set up or clean up by helper. Patient completes activity by themselves 4 Supervision or touching assist (CGA). [place] provide cues , steadying assist 3 The helper provides less than half the effort to complete the activity 2 The helper provides more than half the effort to complete the activity 1 Dependent. The helper does all the effort to complete an activity 7 Patient refused to complete or attempt activity 9 The patient did not perform the activity before the current illness or injury 88 Not attempted due to Medical conditions or safety concerns Upper Body Dressing (FIM): 7 (per pt.) Lower Body Dressing (FIM): 6 (per pt.) Pt. is fully dressed. OT offers to assist him with shower, spongebath, or walk. Pt. states that he will shower when he returns home, and that he will walk a little later with son "Ryan." Pt. has already dressed himself in street clothing. OT talks with pt. and son in depth regarding home situation, and discharge home. Son seems somewhat anxious, and rocks back and forth during discussion. Son is concerned about blood thinner making him confused. Also has questions about transportation and medications. OT explains possible discharge needs, such as life alert if there is a concern for pt's safety. Also talked to both about having a checking system, in which the son can check on pt. while at work. Son verbalizes understanding. Explained home health therapy and nursing to pt. and son, if pt. should think he needs this. At this time, pt. explains that he walked "very well" with PT and feels that he is much better now, since coming through ER. OT offers to ambulate with him again, but he states that he will walk with his son later. Son verbalizes that he would like to do this to make sure he is feeling better. Encouraged both to use gait belt and walker. Pt. verbalizes understanding. At this time, pt. seems of sound body and mind. Able to repeat all history to this clinician. States that he is going to "take some time off" from driving for now, as he wants to make sure that he is okay. Asked about [facility] transportation. OT spoke with social media content manager regarding this. Son also states though, after asking also about transportation, that he would like to drive pt. to appointments. OT let both pt. and son know that if something comes up, and pt. would like to practice ADLs prior to discharge, that this OT would be happy to come back. Both pt. and son verbalize understanding. Education OT Patient Education: Energy conservation, Progress toward Goal/Update tx plan , Purpose of tx/functional activities, Reviewed precautions, Rehab process, Transfer techniques Teaching Recipient: Patient, Family Teaching Methods: Discussion Response to Teaching: Verbalize Understanding OT Short Term Goals Short Term Goals 1=Demonstrate adherence to instructed precautions during ADL tasks. 2=Patient will verbalize/demonstrate understanding of assistive devices/ modifications for ADL. 3=Patient will improve strength/tolerance for activity to enable patient to perform ADL's. OT Tag Marker Goals Retirement Goals Time Frame: Jul 22, 2017 Additional Goals: 2-Verbalize Understanding 1=Demonstrate adherence to instructed precautions during ADL tasks. 2=Patient will verbalize/demonstrate understanding of assistive devices/ modifications for ADL. 3=Patient will improve strength/tolerance for activity to enable patient to perform ADL's. OT Education/Plan Problem List/Assessment Assessment: No Skilled OT Needs ID'd per pt. report. Discharge Recommendations Plan/Recommendations: Discontinue OT Therapy D/C Recommendations: Home w/ Family Support Target Placement Home with son support. Social work to speak with pt. regarding any needs for home. Treatment Plan/Plan of Care Treatment,Training & Education: Yes Treatment Duration: Jul 22, 2017 Frequency: 1 time per week Estimated Hrs Per Day: .5 hour per day Agreement: Yes Rehab Potential: Good Time/GCodes Start Time: 13:00 Stop Time: 13:30 Total Time Billed (hr/min): 30 Billed Treatment Time 1, EVL Discontinue OT. No skilled needs warranted at this time. CHERRI WHITESIDE OT Jul 22, 2017 14:03
[2017-07-22 16:17] VITALS: BP 118/83
[2017-07-22] MEDS: ACETAMINOPHEN 500 MG TAB (TYLENOL) PO PRN (18:29)
[2017-07-22] MEDS: FUROSEMIDE 40 MG (LASIX) TAB PO SCH (18:30)
[2017-07-22 20:00] VITALS: BP 116/67
[2017-07-22] MEDS: ENALAPRIL 5 MG (VASOTEC) TAB PO SCH (20:04)
[2017-07-22] MEDS ORDERED: traZODone 50 MG (DESYREL) TAB PO SCH (21:00)
[2017-07-22] MEDS ORDERED: MELATONIN 3 MG TABLET PO SCH (21:00)
[2017-07-23] VITALS: BP 108/80
[2017-07-23] MEDS: ACETAMINOPHEN 500 MG TAB (TYLENOL) PO PRN ×2 (02:19→09:31)
[2017-07-23 04:00] VITALS: BP 118/79
[2017-07-23 06:10] LABS: BASOPHILS % (AUTO) 0 % (0-10); EOSINOPHILS # (AUTO) 0.1 10^3/uL (0.0-0.3); EOSINOPHILS % (AUTO) 1 % (0-10); HEMATOCRIT 40 % (40-54); HEMOGLOBIN 12.9 G/DL (13.3-17.7); LYMPHOCYTES # (AUTO) 1.2 X 10^3 (1.0-4.0); LYMPHOCYTES % (AUTO) 11 % (12-44); MEAN CORPUSCULAR HEMOGLOBIN 32 PG (25-34); MEAN CORPUSCULAR HGB CONC 33 G/DL (32-36); MEAN CORPUSCULAR VOLUME 99 FL (80-99); MEAN PLATELET VOLUME 11.3 FL (7.4-10.4); MONOCYTES % (AUTO) 9 % (0-12); NEUTROPHILS # (AUTO) 8.3 X 10^3 (1.8-7.8); NEUTROPHILS % (AUTO) 79 % (42-75); PLATELET COUNT 230 10^3/uL (130-400); RED BLOOD COUNT 4.01 10^6/uL (4.35-5.85); RED CELL DISTRIBUTION WIDTH 14.7 % (10.0-14.5); WHITE BLOOD COUNT 10.6 10^3/uL (4.3-11.0)
[2017-07-23 06:27] LABS: ALANINE AMINOTRANSFERASE 170 U/L (0-55); ALBUMIN 3.5 GM/DL (3.2-4.5); ALKALINE PHOSPHATASE 108 U/L (40-136); BILIRUBIN,TOTAL 1.6 MG/DL (0.1-1.0); BUN/CREATININE RATIO 27; CALCIUM 8.5 MG/DL (8.5-10.1); CARBON DIOXIDE 29 MMOL/L (21-32); CHLORIDE 100 MMOL/L (98-107); CREATININE SERUM 1.04 MG/DL (0.60-1.30); GFR ESTIMATED > 60; GLUCOSE 110 MG/DL (70-105); POTASSIUM 3.4 MMOL/L (3.6-5.0); SODIUM 141 MMOL/L (135-145); TOTAL PROTEIN 5.9 GM/DL (6.4-8.2)
[2017-07-23] MEDS: KCL 20 MEQ TAB (K-DUR) PO SCH (06:53)
[2017-07-23] MEDS: FUROSEMIDE 40 MG (LASIX) TAB PO SCH (06:53)
[2017-07-23] MEDS: LEVOTHYROXINE 100 MCG (LEVOTHROID) TAB PO SCH (06:53)
[2017-07-23] MEDS: CATHETER FLUSH 10 ML SYR IV SCH (06:54)
[2017-07-23 08:00] VITALS: BP 112/69
[2017-07-23] MEDS: meTOprolol SUCCINATE 100 MG (TOPROL XL) TAB PO SCH (08:52)
[2017-07-23] MEDS: ENALAPRIL 5 MG (VASOTEC) TAB PO SCH (08:52)
[2017-07-23] MEDS: APIXABAN 5 MG (ELIQUIS) TABLET PO SCH (08:53)
--- NOTE | 2017-07-23 09:16 | Progress Note-Urology ---
Progress Note-Urology Progress Notes/Assess & Plan Progress/Assessment & Plan CONTINUES IMPROVING. OK TO DISCHARGE WHITAKER. KEEP PREVIOUS APPOINTMENT WITH ME. Final Diagnosis CA PROSTATE AND INCONTINENCE TUNDE VELAZQUEZ MD Jul 23, 2017 9:16 am
--- NOTE | 2017-07-23 10:50 | Discharge Inst-Skilled Nursing ---
Discharge Inst-Skilled NF Chief Complaint Pt is an 82yoCM with with a PMH of hypothyroidism who presented to the ER with CC of swelling and SOB that started two weeks ago. He states the he was given a Lupron injection for his prostate cancer and then started to notice a lot of problems like muscle cramps, swelling, and shortness of breath. He was also waking up in the middle of the night with due to panic attacks over his concerns about his swelling and shortness of breath. His swelling progressed up to his abdomen so he decided to seek evaluation. Upon arrival to the ER he was found to be in a-fib with RVR. He denies a previous history of a-fib or any heart problems. Patient Instructions Patient Problems: A fib with RVR Patient Instructions: Please take your medications as written. Please follow up with Dr Mcneill in 2-3 weeks. Consult/Follow Up/Orders Follow Up Appt.: Zahra Laboy will see you early next week. Skilled NF Admit to: [facility] Certification ([facility]) I certify that SNF services are required to be given on an inpatient basis because of the above named patient's need for halfway care on a continuing basis for the conditions(s) for which he/she was receiving inpatient hospital services prior to his/her transfer to the SNF. Senior Living Facility Order: Nursing Services, Manager Deli-Evaluate & Treat, Physical Therapy-Evaluate & Treat Discharge Diet: Low Sodium Diet, Cardiac Diet Daily Activity as Tolerated: Yes New & Resume Previous Orders Nicko Medrano Jul 23, 2017 10:46 NICKO MEDRANO MD Jul 23, 2017 10:50 am
[2017-07-23] MEDS ORDERED: APIX5TAB PO (10:52)
[2017-07-23] MEDS ORDERED: FURO40TA4 PO (10:52)
[2017-07-23] MEDS ORDERED: ENAL5TAB PO (10:52)
[2017-07-23] MEDS ORDERED: METO-395 PO (10:52)
[2017-07-23] MEDS ORDERED: POTA20TA8 PO (10:52)
[2017-07-23] MEDS ORDERED: MELA3TAB PO (10:52)
[2017-07-23] MEDS ORDERED: TRAZ-28 PO (10:52)
[2017-07-23] MEDS ORDERED: ACET-77 PO (10:52)
[2017-07-23 12:00] VITALS: BP 129/76
[2017-07-23 14:25] VITALS: BP 129/76
--- NOTE | 2017-07-23 14:59 | Progress Note-Cardiology ---
Cardiology SOAP Progress Note Subjective: Shortness of breath and swelling much improved Some gen weakness and malaise Objective: I&O/Vital Signs 07/23/17 07/23/17 07/23/17 07/23/17 04:00 07:00 08:00 08:00 Temp 97.0 96.8 Pulse 82 78 77 Resp 16 18 B/P (MAP) 118/79 (92) 112/69 (83) Pulse Ox 92 96 O2 Delivery Room Air Room Air Room Air 07/23/17 07/23/17 10:10 12:00 Temp 96.8 97.2 Pulse 76 Resp 20 B/P (MAP) 129/76 (93) Pulse Ox 95 O2 Delivery Room Air 07/23/17 00:00 Intake Total 1310 ml Output Total 375 ml Balance 935 ml Weight (Pounds): 191 Weight (Ounces): 1.0 Weight (Calculated Kilograms): 86.271762 Constitutional: AAO x 3, well-developed, well-nourished Respiratory: No accessory muscle use, No respiratory distress; lungs clear to percussion, other (dyspnea on conversation, some basal fine and coarse crackles) Cardiovascular: irregularly irregular; No JVD; S1 and S2, systolic murmur (HSM at card apex radiating to the axilla and LSB) Gastrointestional: soft, audible bowel sounds Extremities: significant edema (bilat mild to mod edema) Neurologic/Psychiatric: grossly intact, power is 5/5 both on sides Skin: No rash, No ulcerations Results/Procedures: Labs Laboratory Tests 07/23/17 05:18: White Blood Count 10.6, Red Blood Count 4.01L, Hemoglobin 12.9L, Hematocrit 40, Mean Corpuscular Volume 99, Mean Corpuscular Hemoglobin 32, Mean Corpuscular Hemoglobin Concent 33, Red Cell Distribution Width 14.7H, Platelet Count 230, Mean Platelet Volume 11.3H, Neutrophils (%) (Auto) 79H, Lymphocytes (%) (Auto) 11L, Monocytes (%) (Auto) 9, Eosinophils (%) (Auto) 1, Basophils (%) (Auto) 0, Neutrophils # (Auto) 8.3H, Lymphocytes # (Auto) 1.2, Monocytes # (Auto) 1.0, Eosinophils # (Auto) 0.1, Basophils # (Auto) 0.0, Sodium Level 141, Potassium Level 3.4L, Chloride Level 100, Carbon Dioxide Level 29, Anion Gap 12, Blood Urea Nitrogen 28H, Creatinine 1.04, Estimat Glomerular Filtration Rate > 60, BUN /Creatinine Ratio 27, Glucose Level 110H, Calcium Level 8.5, Magnesium Level 2.0 , Total Bilirubin 1.6H, Aspartate Amino Transf (AST/SGOT) 100H, Alanine Aminotransferase (ALT/SGPT) 170H, Alkaline Phosphatase 108, Total Protein 5.9L, Albumin 3.5 A/P: Assessment: Acute systolic and diastolic CHF - now clinically compensated New onset a-fib with RVR - first documented on EKG of 07-20-17 - rate improved Echo of 07/20/17: LVEF 40-45%, mod to sev enlargement of LA, mod to severe MR ( ecc jet along interatrial septum), trivial AI, mild to mod TR, PASP 50-55 mmHg 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 and/or ESDRAS Elevated liver enzymes possibly d/t hepatobiliary congestion - improving H/O prostate cancer with prostatectomy greater than 10 years ago Hypothyroidism - replacement tx (TSH 5.7 on 07-20-17) Symptoms suggestive of sleep apnea - advise out pt tx HLD - intolerant to statin tx d/t gen muscle discomfort Hypothyroidism, by history Plan: * Continue current regimen * Outpat f/u advised * I discussed his case with Dr Medrano this am * I answered his and his sons questions in detail SHOBHA YOUSSEF MD FACP FAC CCDS Jul 23, 2017 14:58
--- NOTE | 2017-07-23 16:44 | Discharge Summary-Hospitalist ---
Diagnosis/Chief Complaint Date of Admission Jul 20, 2017 at 09:42 Date of Discharge Jul 23, 2017 at 14:45 Admission Diagnosis A-fib with RVR, acutely decompensated heart failure Discharge Diagnosis A-fib with RVR (1) Atrial fibrillation with RVR Status: Acute Assessment & Plan: Continue Topril XL Cont Eliquis Monitor on telemetry Cardiology consulted, appreciate recs (2) Heart failure Assessment & Plan: Echo shows systolic hear failure and mod to severe MR Cardiology consulted, appreciate recs continue Lasix monitor I/Os Na and fluid restriction (3) Prostate cancer Assessment & Plan: Urology consulted, appreciate recs (4) Hypothyroidism Assessment & Plan: TSH elevated by T4 normal Will need to follow as outpatient as just increased to 100mcg less than 1 month ago per patient (5) Discharge planning issues Assessment & Plan: Is primary caregiver for 100% dependent is currently placed at [facility] He is considering placement as wel lat DC and would like to go to a different [place] Discussed with social work, appreciate assistance in discharge planning I called and personally discussed this with his PCP Dr Tejada (6) Prophylactic measure Assessment & Plan: Eliquis Heart Healthy Diet saline lock Discharge Summary Procedures/Consulations Cardiology- Dr Jones Discharge Physical Exam Allergies: Coded Allergies: No Known Drug Allergies (Unverified , 04/25/15) Vitals & I&Os Vital Signs Date Time Temp Pulse Resp B/P (MAP) Pulse Ox O2 Delivery O2 Flow Rate FiO2 07/23/17 14:25 76 20 129/76 95 Room Air 07/23/17 12:00 97.2 07/20/17 20:00 2.00 General Appearance: Alert, Oriented X3 Hospital Course Pt presented to the ER with edema and SOB and was found to be in a-fib with RVR with acutely decompensated heart failure. Cardiology was consulted and he was started on metoprolol and Eliquis for stroke ppx. He was discharged to a fdc for skilled stay to follow up on this acute hospital stay. Labs (last 24 hrs) Patient resulted labs reviewed. Imaging: Reviewed Imaging Report Discussion & Recommendations Discharge Planning: >30 minutes discharge planning Discharge Home Medications: Active Scripts Active Melatonin 3 Mg Tablet 3 Mg PO HS Furosemide 40 Mg Tablet 40 Mg PO DAILY@,17 Klor-Con M20 (Potassium Chloride) 20 Meq Tab.er.prt 20 Meq PO DAILY@0700 Acetaminophen 500 Mg Tablet 500 Mg PO BID Trazodone HCl 50 Mg Tablet 50 Mg PO HS Enalapril Maleate 5 Mg Tablet 5 Mg PO BID Metoprolol Succinate 100 Mg Tab.er.24h 100 Mg PO DAILY Eliquis (Apixaban) 5 Mg Tablet 5 Mg PO BID Reported Levothyroxine Sodium 100 Mcg Tablet 100 Mcg PO DAILY Instructions to patient/family Please see electronic discharge instructions given to patient. Clinical Quality Measures DVT/VTE Risk/Contraindication: Risk Factor Score Per Nursin RFS Level Per Nursing on Admit: 4+=Very High Problem Qualifiers (1) Heart failure: Heart failure type: systolic Heart failure chronicity: acute Qualified Codes : I50.21 - Acute systolic (congestive) heart failure (2) Hypothyroidism: Hypothyroidism type: acquired Qualified Codes: E03.9 - Hypothyroidism, unspecified NICKO CELESTIN MD Jul 23, 2017 16:44
== END 2017-07-23 14:45 | DRG 308 ==
LOC: EDUNIT# 07:41 → ER 07:44 → ICU 09:42 → 4TH 07-21 12:35
PROVIDERS: ADMIT Family Medicine; ATTEND Family Medicine
DX: I48.91 Unspecified atrial fibrillation (principal); I50.41 Acute combined systolic (congestive) and diastolic (congestive) heart failure; C61 Malignant neoplasm of prostate; E03.9 Hypothyroidism, unspecified; F41.0 Panic disorder [episodic paroxysmal anxiety]; E78.00 Pure hypercholesterolemia, unspecified; G47.30 Sleep apnea, unspecified; K76.1 Chronic passive congestion of liver; Z66 Do not resuscitate; E78.5 Hyperlipidemia, unspecified; I27.20 Pulmonary hypertension, unspecified; I08.1 Rheumatic disorders of both mitral and tricuspid valves; N50.89 Other specified disorders of the male genital organs; E87.70 Fluid overload, unspecified; R74.8 Abnormal levels of other serum enzymes; F17.210 Nicotine dependence, cigarettes, uncomplicated; Z79.818 Long term (current) use of other agents affecting estrogen receptors and estrogen levels; Z90.79 Acquired absence of other genital organ(s)
CPT/HCPCS: 36415; 71046; 80053; 80061; 82550; 83735; 83880; 84439; 84443; 84484; 85025; 86141; 93005; 93041; 93306; 94761; 96374; 96375

== ENCOUNTER 2017-08-10 12:06 | Day surgery (SDC) | payer MEDICARE ==
[2017-08-10] VITALS (12 sets, daily range): BP systolic 100–116; BP diastolic 64–84
[~2017-08-10] VITALS: Ht 170.2 cm; Wt 79.4 kg
[~2017-08-10 12:06] MED LIST changes: -ACET-2267 PO; -BARIUM SUSPENSION 2.1% (VANILLA SILQ) 450 ML PO ONE; -CATHETER FLUSH 10 ML SYR IV PRN; -CHLO473M4 MM; -IOHEXOL 350 MG/ML 100 ML (OMNIPAQUE 350) VIAL IV ONE; -LEVO50TA6 PO; -METO5TAB6 PO; -NS 250 ML (IVPB) BAG IV ONE; -POTA-51 PO; -TRAZ-189 PO; +TRAZ-28 PO
[2017-08-10] MEDS ORDERED: NS IV 1000 ML 3,000 ML ONE (12:13)
[2017-08-10] MEDS ORDERED: HEParin 1000 UNIT/ML (10ML VIAL) FOR BOLUS ONE (12:28)
[2017-08-10] MEDS ORDERED: LIDOCAINE 1% INJ 20 ML 20 ML VIAL ONE (12:28)
[2017-08-10] MEDS ORDERED: NS IV 1000 ML 1,000 ML IV SCH ×2 (12:45→15:19)
[2017-08-10 13:03] LABS: HEMOGLOBIN 15.5 G/DL (13.3-17.7); MEAN PLATELET VOLUME 10.6 FL (7.4-10.4); RED BLOOD COUNT 4.88 10^6/uL (4.35-5.85); RED CELL DISTRIBUTION WIDTH 14.3 % (10.0-14.5); WHITE BLOOD COUNT 7.1 10^3/uL (4.3-11.0)
[2017-08-10 13:23] LABS: INR 1.3 (0.8-1.4); PROTHROMBIN TIME PATIENT 16.5 SEC (12.2-14.7)
[2017-08-10 13:24] LABS: ALBUMIN 4.1 GM/DL (3.2-4.5); BILIRUBIN,TOTAL 1.7 MG/DL (0.1-1.0); CREATININE SERUM 1.26 MG/DL (0.60-1.30); POTASSIUM 3.6 MMOL/L (3.6-5.0); TOTAL PROTEIN 7.9 GM/DL (6.4-8.2)
[2017-08-10] MEDS ORDERED: diphenhydrAMINE 50 MG/ML INJ (BENADRYL) ONE (13:25)
[2017-08-10] MEDS ORDERED: MIDAZOLAM 5 MG/5 ML (VERSED) VIAL ONE (13:25)
[2017-08-10] MEDS ORDERED: fentaNYL INJECTION 100 MCG/2 ML AMP ONE (13:25)
[2017-08-10] MEDS ORDERED: MELA3TAB PO (13:37)
[2017-08-10] MEDS ORDERED: LEVO100T7 PO (13:37)
[2017-08-10] MEDS ORDERED: CHLO473M4 MM (13:37)
[2017-08-10] MEDS ORDERED: METO5TAB6 PO (13:37)
[2017-08-10] MEDS ORDERED: ACET-2267 PO (13:37)
[2017-08-10] MEDS ORDERED: TRAZ-28 PO (13:37)
[2017-08-10] MEDS ORDERED: POTA-51 PO (13:37)
[2017-08-10] MEDS ORDERED: ENAL5TAB PO (13:37)
[2017-08-10] MEDS ORDERED: METO-395 PO (13:37)
[2017-08-10] MEDS ORDERED: FURO40TA4 PO (13:37)
[2017-08-10] MEDS ORDERED: APIX5TAB PO (13:37)
--- NOTE | 2017-08-10 13:52 | Cardiac Procedure Note-CS/ASA ---
Pre-Procedure Note Pre-Op Procedure Note H&P Reviewed The H&P was reviewed, patient examined and no changes noted. Date H&P Reviewed: August 10, 2017 Time H&P Reviewed: 13:52 Conscious Sedation Pre-Proced Time Reviewed: 13:52 ASA Class: 3 Airway Mallampati Classification: (mentasta appropriate class) I. II. III, IV Lungs Heart ASA score ASA 1: a normal healthy patient ASA 2: a patient with a mild systemic disease (mid diabetes, controlled hypertension, obesity ASA 3: a patient with a severe systemic disease that limits activity (angina , COPD, prior Myocardial infarction) ASA 4: a patient with an incapacitating disease that is a constant threat to life (CHF, renal failure) ASA 5: a moribund patient not expected to survive 24 hrs. (ruptured aneurysm) ASA 6: a declared brain patient whose organs are being harvested. For emergent operations, add the letter E after the classification Grade 2 Sedation Plan: Analgesia, Amnesia, Plan communicated to team members, Discussed options with patient/fam, Discussed risks with patient/fam Note The patient is an appropriate candidate to undergo the planned procedure, sedation, and anesthesia. The patient immediately re-assessed prior to indication. SHOBHA YOUSSEF MD FACP FAC CCDS August 10, 2017 13:52
--- NOTE | 2017-08-10 15:22 | Discharge Inst-Post CATH ---
Discharge Inst-CATH Post Cardiac Cath D/C Inst Follow Up/Plan F/u with Dr Mcneill in one week CARDIAC CATH DISCHARGE INSTRUCTIONS *Hold Metformin for 48 hours post heart cath. ACTIVITY * Go Home directly and rest. * Limit activity of the leg (or wrist if it was used) for 7 days including aerobics, swimming, jogging, bicycling, etc. * Restrict stair-climbing for 7 days if possible, if not, climb up with your non -cath leg, then bring together on the same step. * Avoid lifting, pushing, pulling or excessive movement of the affected extremity for 7 days. * Customary sexual activity may be resumed after 2 days-use caution not to use a position that strains or causes pain to the affected extremity. * No driving for 24 hours. * NO SMOKING. * Avoid straining for bowel movements for 7 days. * Gentle walking on level ground is allowed. * Returning to work will depend on the type of procedure and the results. Your doctor will discuss this with you. CALL YOUR DOCTOR FOR ANY OF THE FOLLOWING: *If bleeding from the puncture site occurs- Apply gentle pressure to site with clean cloth and call your doctor or EMS. * If a knot or lump forms under the skin, increases in size, or causes pain. * If bruising appears to be worsening or moving further down your leg instead of disappearing. * Temperature above 101 F. CARE OF YOUR GROIN INCISION; * Bruising or purple discoloration of the skin near the puncture site is common. * You may shower only, no bathtub bathing for 5 days. Be careful to avoid slipping as your leg may feel stiff. * If a closure device was used on your femoral artery, please see the attached guide regarding care of the device and your leg. * REMOVE the dressing from your groin the next day after your procedure in the shower. CARE OF YOUR WRIST INCISION; * Bruising or purple discoloration of the skin near the puncture site is common. * You may shower. * DO NOT submerge wrist. * Remove dressing in 24 hours. SHOBHA MCNEILL MD [facility] August 10, 2017 15:22
--- NOTE | 2017-08-10 15:24 | Discharge Inst-Cardiology ---
Discharge Inst-Cardiac Discharge Medications Continued Medications: Acetaminophen (Tylenol Extra Strength) 500 Mg Tablet 500 MG PO BID, TAB Apixaban (Eliquis) 5 Mg Tablet 5 MG PO BID, TAB Chlorhexidine Gluconate (Peridex) 473 Ml Mouthwash 15 ML MM TID, ML Enalapril Maleate (Enalapril Maleate) 5 Mg Tablet 5 MG PO BID, TAB Furosemide (Furosemide) 40 Mg Tablet 40 MG PO BID, TAB Levothyroxine Sodium (Levothyroxine Sodium) 100 Mcg Tablet 100 MCG PO DAILY, TAB Melatonin (Melatonin) 3 Mg Tablet 3 MG PO HS, TAB Metolazone (Metolazone) 5 Mg Tablet 5 MG PO DAILY, TAB Metoprolol Succinate (Metoprolol Succinate) 100 Mg Tab.er.24h 100 MG PO DAILY, TAB Potassium Chloride (Potassium Chloride) 20 Meq Tablet.er 20 MEQ PO Q12H, TAB Trazodone HCl (Trazodone HCl) 50 Mg Tablet 50 MG PO HS, TAB SHOBHA YOUSSEF MD FACP FACC CCDS August 10, 2017 15:24
[2017-08-10] MEDS ORDERED: PATIENT MAY USE OWN MEDS, ALL PO SCH (15:30)
[2017-08-10] MEDS ORDERED: LEVO50TA6 PO (15:32)
--- NOTE | 2017-08-10 22:28 | CARDIAC CATHETERIZATION ---
DATE OF SERVICE: 08/10/2017 The patient is an 82-year-old man who has had new onset of congestive heart failure and this has been diagnosed as acute systolic and diastolic heart failure and he has been found to have moderate to severe mitral regurgitation, moderate pulmonary hypertension, and impairment of global left ventricular systolic function with an ejection fraction of 40% to 45%. His congestive heart failure was treated. Today, he comes in for cardiac catheterization for further evaluation of his congestive heart failure and for formulation of any definitive therapeutic plan. PROCEDURE: He was brought to the cardiac catheterization laboratory in a fasting state. The right groin was prepared and draped in the usual sterile fashion. Lidocaine 1% local anesthesia. Modified Seldinger technique was used to advance a 5-Green[place]ic sheath in the right femoral artery and a 7-Green[place]ic sheath in right femoral vein. We used a 7-Green[place]ic [place]-Sukumar catheter to carry out right heart catheterization. We were only able to measure right atrial pressures. Despite multiple attempts, we were not able to advance the [place]-Sukumar catheter into the pulmonary artery. We made several attempts and then removed the catheter. We then proceeded with left heart catheterization. We used a 5-Green[place]ic pigtail catheter to carry out angiography of the aortic root. We did aortic root angiography because we were having difficulty crossing the aortic valve. This showed the aortic valve quite well and we were subsequently able to cross the aortic valve without difficulty. We used a 5-Greenlandic pigtail catheter to carry out left heart catheterization, left ventricular angiography. We used a 5-Greenlandic JL4 catheter for left coronary angiography and a 5-Greenlandic JR4 catheter for right coronary angiography. Following removal of the diagnostic catheters, manual pressure was used to achieve arterial and venous hemostasis. He tolerated the procedure well. HEMODYNAMICS: Right atrial mean pressure was 13 mmHg. Left ventricular end-diastolic pressure was 10 mmHg. There is no significant pressure gradient on pullback across the aortic valve. The ascending aortic pressure was 95/63 with a mean of 78 mmHg. LEFT VENTRICULAR ANGIOGRAPHY: Left ventricular angiography was carried out in the right anterior oblique projection. There is global hypokinesis of the left ventricle. Left ventricular ejection fraction is approximately 40%. There appears to be 3+ mitral regurgitation on a scale of 4. CORONARY ANGIOGRAPHY: Left main coronary artery does not exhibit significant obstructive disease. Left anterior descending artery has multiple 40% to 50% stenosis in its proximal, mid and distal portions. Left circumflex artery does not exhibit significant disease. Right coronary artery is dominant and does not exhibit significant disease. CONCLUSIONS: 1. Impairment of global left ventricular systolic function with ejection fraction of 40%. 2. Moderate coronary artery disease consisting of multiple 40% to 50% stenosis in the left anterior descending artery. 3. Normal left ventricular end-diastolic pressure. 4. Moderately severe to severe mitral regurgitation. DISCUSSION AND RECOMMENDATIONS: Based on results of the study, it appears appropriate to continue a conservative approach. We will refer for consideration of mitral valve repair. Job ID: [id number] DocumentID: [id number] Dictated Date: 08/10/2017 15:01:59 Financial Reporting Accountant Date: 08/10/2017 22:27:49 Dictated By: SHOBHA YOUSSEF MD, MA, FACP, FACC,
== END 2017-08-10 18:25 | disposition home or self-care (01) ==
LOC: CATH 12:06 → ICU 15:18 → CATH 18:25
PROVIDERS: ATTEND Internal Medicine Cardiovascular Disease
DX: I25.10 Atherosclerotic heart disease of native coronary artery without angina pectoris (principal); I50.43 Acute on chronic combined systolic (congestive) and diastolic (congestive) heart failure; I27.20 Pulmonary hypertension, unspecified; I08.1 Rheumatic disorders of both mitral and tricuspid valves; I48.0 Paroxysmal atrial fibrillation; E78.5 Hyperlipidemia, unspecified; E03.9 Hypothyroidism, unspecified; R74.8 Abnormal levels of other serum enzymes; Z79.01 Long term (current) use of anticoagulants; Z79.899 Other long term (current) drug therapy
CPT/HCPCS: 36415; 80053; 80061; 84443; 85027; 85610; 85730; 87081; 93460

== ENCOUNTER 2017-09-04 11:38 | Emergency (ER) | payer MEDICARE ==
[~2017-09-04] VITALS: Ht 170.2 cm; Wt 72.6 kg
[~2017-09-04 11:38] MED LIST changes: +ACET-2267 PO; +CHLO473M4 MM; +LEVO50TA6 PO; +METO5TAB6 PO; +POTA-51 PO
--- OUTSIDE RECORDS SUMMARY | 2017-09-04 11:54 | XMS REPORT | Continuity of Care Document ---
Author Author [facility] Organization [facility] Address Unknown Phone Unavailable Allergies Active Description Code Type Severity Reaction Onset Reported/Identified Relationship to Patient Clinical Status Yes No Known Drug Allergies [id number] Drug Allergy Unknown N/A 04/25/2015 Medications There is no data. Problems Date Dx Coded Attending Type Code Diagnosis Diagnosed By 10/31/2014 SOLOMON GONZALES, LE R Ot 719.45 10/31/2014 SOLOMON GONZALES, LE R Ot V15.88 11/01/2014 Ot 185 11/01/2014 CAROLINE GONZALES, TUNDE Navarro Ot 185 11/01/2014 CAROLINE GONZALES, TUNDE Navarro Ot 562.10 11/01/2014 TUNDE VELAZQUEZ MD [...] 07/16/2017 Ot 185 MALIGN NEOPL PROSTATE 07/16/2017 TUNDE VELAZQUEZ MD Ot 185 MALIGN NEOPL PROSTATE 07/16/2017 TUNDE VELAZQUEZ MD Ot 562.10 DIVERTICULOSIS COLON (W/O MENT OF HEMORR 07/16/2017 TUNDE VELAZQUEZ MD Ot 574.20 CHOLELITHIASIS NOS 07/16/2017 TUNED VELAZQUEZ MD Ot 793.3 NOSP (ABN) FINDINGS ON RADIOLOGICAL OT 07/16/2017 LE CARBAJAL MD Ot 719.45 JOINT PAIN-PELVIS 07/16/2017 LE CARBAJAL MD Ot V15.88 HISTORY OF FALL 07/16/2017 Ot C61 MALIGNANT NEOPLASM OF PROSTATE 07/16/2017 ANNMARIE ARANA AUTHORIZATION COORDINATOR Ot R53.83 OTHER FATIGUE 07/16/2017 ANNMARIE ARANA AUTHORIZATION COORDINATOR Ot I52 OTHER HEART DISORDERS IN DISEASES CLASSI 07/16/2017 ANNMARIE ARANA AUTHORIZATION COORDINATOR Ot R06.02 SHORTNESS OF BREATH 07/16/2017 ANNMARIE ARANA AUTHORIZATION COORDINATOR Ot R53.83 OTHER FATIGUE 07/16/2017 ANNMARIE ARANA AUTHORIZATION COORDINATOR Ot R60.0 LOCALIZED EDEMA 07/20/2017 Ot 185 MALIGN NEOPL PROSTATE 07/20/2017 TUNDE VELAZQUEZ MD Ot 185 MALIGN NEOPL PROSTATE 07/20/2017 TUNDE VELAZQUEZ MD Ot 562.10 DIVERTICULOSIS COLON (W/O MENT OF HEMORR 07/20/2017 TUNDE VELAZQUEZ MD Ot 574.20 CHOLELITHIASIS NOS 07/20/2017 TUNDE VELAZQUEZ MD, Ot 793.3 NOSP (ABN) FINDINGS ON RADIOLOGICAL OT 07/20/2017 LE CARBAJAL MD Ot 719.45 JOINT PAIN-PELVIS 07/20/2017 LE CARBAJAL MD Ot V15.88 HISTORY OF FALL 07/20/2017 Ot C61 MALIGNANT NEOPLASM OF PROSTATE 07/20/2017 TUNDE VELAZQUEZ MD, Ot J90 PLEURAL EFFUSION, NOT ELSEWHERE CLASSIFI 07/20/2017 TUNDE VELAZQUEZ MD, Ot K57.30 DVRTCLOS OF LG INT W/O PERFORATION OR AB 07/20/2017 TUNDE VELAZQUEZ MD, Ot K80.20 CALCULUS OF GALLBLADDER W/O CHOLECYSTITI 07/20/2017 TUNDE VELAZQUEZ MD, Ot M89.9 DISORDER OF BONE, UNSPECIFIED 07/20/2017 TUNDE VELAZQUEZ MD, Ot Z08 ENCNTR FOR FOLLOW-UP EXAM AFTER TRTMT FO 07/20/2017 TUNDE VELAZQUEZ MD, Ot Z85.46 PERSONAL HISTORY OF MALIGNANT NEOPLASM O 07/20/2017 TUNDE VELAZQUEZ MD, Ot Z90.79 ACQUIRED ABSENCE OF OTHER GENITAL ORGAN( 07/20/2017 ANNMARIE ARANA AUTHORIZATION COORDINATOR Ot I52 OTHER HEART DISORDERS IN DISEASES CLASSI 07/20/2017 ANNMARIE ARANA AUTHORIZATION COORDINATOR Ot R06.02 SHORTNESS OF BREATH 07/20/2017 ANNMARIE ARANA AUTHORIZATION COORDINATOR Ot R53.83 OTHER FATIGUE 07/20/2017 ANNMARIE ARANA AUTHORIZATION COORDINATOR Ot R60.0 LOCALIZED EDEMA 07/21/2017 NICKO CELESTIN MD Ot C61 MALIGNANT NEOPLASM OF PROSTATE 07/21/2017 NICKO CELESTIN MD Ot E03.9 HYPOTHYROIDISM, UNSPECIFIED 07/21/2017 NICKO CELESTIN MD Ot E78.00 PURE HYPERCHOLESTEROLEMIA, UNSPECIFIED 07/21/2017 NICKO CELESTIN MD Ot E87.70 FLUID OVERLOAD, UNSPECIFIED 07/21/2017 NICKO CELESTIN MD Ot F17.210 NICOTINE DEPENDENCE, CIGARETTES, UNCOMPL 07/21/2017 NICKO CELESTIN MD Ot F41.0 PANIC DISORDER [EPISODIC PAROXYSMAL ANXI 07/21/2017 NICKO CELESTIN MD, Ot G47.30 SLEEP APNEA, UNSPECIFIED 07/21/2017 NICKO CELESTIN MD Ot I48.91 UNSPECIFIED ATRIAL FIBRILLATION 07/21/2017 NICKO CELSETIN MD Ot I50.9 HEART FAILURE, UNSPECIFIED 07/21/2017 NICKO CELESTIN MD Ot K76.1 CHRONIC PASSIVE CONGESTION OF LIVER 07/21/2017 NICKO CELESTIN MD Ot N50.89 OTHER SPECIFIED DISORDERS OF THE MALE GE 07/21/2017 NICKO CELESTIN MD Ot Z66 DO NOT RESUSCITATE 07/21/2017 NICKO CELESTIN MD, Ot Z79.818 LNG TRM (CRNT) USE OF AGNT AFF ESTROG RE 07/21/2017 NICKO CELESTIN MD Ot Z90.79 ACQUIRED ABSENCE OF OTHER GENITAL ORGAN( 07/22/2017 TUNDE VELAZQUEZ MD Ot J90 PLEURAL EFFUSION, NOT ELSEWHERE CLASSIFI 07/22/2017 TUNDE VELAZQUEZ MD, Ot K57.30 DVRTCLOS OF LG INT W/O PERFORATION OR AB 07/22/2017 TUNDE VELAZQUEZ MD Ot K80.20 CALCULUS OF GALLBLADDER W/O CHOLECYSTITI 07/22/2017 TUNDE VELAZQUEZ MD, Ot M89.9 DISORDER OF BONE, UNSPECIFIED 07/22/2017 TUNDE VELAZQUEZ MD, Ot Z08 ENCNTR FOR FOLLOW-UP EXAM AFTER TRTMT FO 07/22/2017 TUNDE VELAZQUEZ MD, Ot Z85.46 PERSONAL HISTORY OF MALIGNANT NEOPLASM O 07/22/2017 TUNDE VELAZQUEZ MD Ot Z90.79 ACQUIRED ABSENCE OF OTHER GENITAL ORGAN( 07/22/2017 NICKO CELESTIN MD Ot C61 MALIGNANT NEOPLASM OF PROSTATE 07/22/2017 NICKO CELESTIN MD Ot E03.9 HYPOTHYROIDISM, UNSPECIFIED 07/22/2017 NICKO CELESTIN MD Ot E78.00 PURE HYPERCHOLESTEROLEMIA, UNSPECIFIED 07/22/2017 NICKO CELESTIN MD Ot E87.70 FLUID OVERLOAD, UNSPECIFIED 07/22/2017 NICKO CELESTIN MD Ot F17.210 NICOTINE DEPENDENCE, CIGARETTES, UNCOMPL 07/22/2017 NICKO CELESTIN MD Ot F41.0 PANIC DISORDER [EPISODIC PAROXYSMAL ANXI 07/22/2017 NICKO CELESTIN MD Ot G47.30 SLEEP APNEA, UNSPECIFIED 07/22/2017 NICKO CELESTIN MD Ot I48.91 UNSPECIFIED ATRIAL FIBRILLATION 07/22/2017 NICKO CELESTIN MD Ot I50.9 HEART FAILURE, UNSPECIFIED 07/22/2017 NICKO CELESTIN MD Ot K76.1 CHRONIC PASSIVE CONGESTION OF LIVER 07/22/2017 NICKO CELESTIN MD Ot N50.89 OTHER SPECIFIED DISORDERS OF THE MALE GE 07/22/2017 NICKO CELESTIN MD Ot Z66 DO NOT RESUSCITATE 07/22/2017 NICKO CELESTIN MD Ot Z79.818 LNG TRM (CRNT) USE OF AGNT AFF ESTROG RE 07/22/2017 NICKO CELESTIN MD Ot Z90.79 ACQUIRED ABSENCE OF OTHER GENITAL ORGAN( 07/22/2017 NICKO CELESTIN MD Ot C61 MALIGNANT NEOPLASM OF PROSTATE 07/22/2017 NICKO CELESTIN MD Ot E03.9 HYPOTHYROIDISM, UNSPECIFIED 07/22/2017 NICKO CELESTIN MD Ot E78.00 PURE HYPERCHOLESTEROLEMIA, UNSPECIFIED 07/22/2017 NICKO CELESTIN MD Ot E87.70 FLUID OVERLOAD, UNSPECIFIED 07/22/2017 NICKO CELESTIN MD Ot F17.210 NICOTINE DEPENDENCE, CIGARETTES, UNCOMPL 07/22/2017 NICKO CELESTIN MD Ot F41.0 PANIC DISORDER [EPISODIC PAROXYSMAL ANXI 07/22/2017 NICKO CELESTIN MD Ot G47.30 SLEEP APNEA, UNSPECIFIED 07/22/2017 NICKO CELESTIN MD Ot I48.91 UNSPECIFIED ATRIAL FIBRILLATION 07/22/2017 NICKO CELESTIN MD Ot I50.9 HEART FAILURE, UNSPECIFIED 07/22/2017 NICKO CELESTIN MD Ot K76.1 CHRONIC PASSIVE CONGESTION OF LIVER 07/22/2017 NICKO CELESTIN MD Ot N50.89 OTHER SPECIFIED DISORDERS OF THE MALE GE 07/22/2017 NICKO CELESTIN MD Ot Z66 DO NOT RESUSCITATE 07/22/2017 NICKO CELESTIN MD Ot Z79.818 LNG TRM (CRNT) USE OF AGNT AFF ESTROG RE 07/22/2017 NICKO CELESTIN MD Ot Z90.79 ACQUIRED ABSENCE OF OTHER GENITAL ORGAN( 07/23/2017 NICKO CELESTIN MD Ot C61 MALIGNANT NEOPLASM OF PROSTATE 07/23/2017 NICKO CELESTIN MD Ot E03.9 HYPOTHYROIDISM, UNSPECIFIED 07/23/2017 NICKO CELESTIN MD Ot E78.00 PURE HYPERCHOLESTEROLEMIA, UNSPECIFIED 07/23/2017 NICKO CELESITN MD Ot E87.70 FLUID OVERLOAD, UNSPECIFIED 07/23/2017 NICKO CELESTIN MD Ot F17.210 NICOTINE DEPENDENCE, CIGARETTES, UNCOMPL 07/23/2017 NICKO CELESTIN MD Ot F41.0 PANIC DISORDER [EPISODIC PAROXYSMAL ANXI 07/23/2017 NICKO CELESTIN MD Ot G47.30 SLEEP APNEA, UNSPECIFIED 07/23/2017 NICKO CELESTIN MD Ot I48.91 UNSPECIFIED ATRIAL FIBRILLATION 07/23/2017 NICKO CELESTIN MD Ot I50.9 HEART FAILURE, UNSPECIFIED 07/23/2017 NICKO CELESTIN MD Ot K76.1 CHRONIC PASSIVE CONGESTION OF LIVER 07/23/2017 NICKO CELESTIN MD Ot N50.89 OTHER SPECIFIED DISORDERS OF THE MALE GE 07/23/2017 NICKO CELESTIN MD Ot Z66 DO NOT RESUSCITATE 07/23/2017 NICKO CELESTIN MD Ot Z79.818 LNG TRM (CRNT) USE OF AGNT AFF ESTROG RE 07/23/2017 NICKO CELESTIN MD Ot Z90.79 ACQUIRED ABSENCE OF OTHER GENITAL ORGAN( 07/23/2017 NICKO CELESTIN MD Ot C61 MALIGNANT NEOPLASM OF PROSTATE 07/23/2017 NICKO CELESTIN MD Ot E03.9 HYPOTHYROIDISM, UNSPECIFIED 07/23/2017 NICKO CELESTIN MD Ot E78.00 PURE HYPERCHOLESTEROLEMIA, UNSPECIFIED 07/23/2017 NICKO CELESTIN MD Ot E87.70 FLUID OVERLOAD, UNSPECIFIED 07/23/2017 NICKO CELESTIN MD Ot F17.210 NICOTINE DEPENDENCE, CIGARETTES, UNCOMPL 07/23/2017 NICKO CELESTIN MD Ot F41.0 PANIC DISORDER [EPISODIC PAROXYSMAL ANXI 07/23/2017 NICKO CELESTIN MD Ot G47.30 SLEEP APNEA, UNSPECIFIED 07/23/2017 NICKO CELESTIN MD Ot I48.91 UNSPECIFIED ATRIAL FIBRILLATION 07/23/2017 NICKO CELESTIN MD Ot I50.9 HEART FAILURE, UNSPECIFIED 07/23/2017 NICKO CELESTIN MD Ot K76.1 CHRONIC PASSIVE CONGESTION OF LIVER 07/23/2017 NICKO CELESTIN MD Ot N50.89 OTHER SPECIFIED DISORDERS OF THE MALE GE 07/23/2017 NICKO CELESTIN MD Ot Z66 DO NOT RESUSCITATE 07/23/2017 NICKO CELESTIN MD, Ot Z79.818 LNG TRM (CRNT) USE OF AGNT AFF ESTROG RE 07/23/2017 NICKO CELESTIN MD Ot Z90.79 ACQUIRED ABSENCE OF OTHER GENITAL ORGAN( 07/23/2017 NICKO CELESTIN MD Ot C61 MALIGNANT NEOPLASM OF PROSTATE 07/23/2017 NICKO CELESTIN MD Ot E03.9 HYPOTHYROIDISM, UNSPECIFIED 07/23/2017 NICKO CELESTIN MD Ot E78.00 PURE HYPERCHOLESTEROLEMIA, UNSPECIFIED 07/23/2017 NICKO CELESTIN MD Ot E78.5 HYPERLIPIDEMIA, UNSPECIFIED 07/23/2017 NICKO CELESTIN MD Ot E87.70 FLUID OVERLOAD, UNSPECIFIED 07/23/2017 NICKO CELESTIN MD Ot F17.210 NICOTINE DEPENDENCE, CIGARETTES, UNCOMPL 07/23/2017 NICKO CELESTIN MD Ot F41.0 PANIC DISORDER [EPISODIC PAROXYSMAL ANXI 07/23/2017 NICKO CELESTIN MD Ot G47.30 SLEEP APNEA, UNSPECIFIED 07/23/2017 NICKO CELESTIN MD Ot I08.1 RHEUMATIC DISORDERS OF BOTH MITRAL AND T 07/23/2017 NICKO CELESTIN MD Ot I27.20 PULMONARY HYPERTENSION, UNSPECIFIED 07/23/2017 NICKO CELESTIN MD Ot I48.91 UNSPECIFIED ATRIAL FIBRILLATION 07/23/2017 NICKO CELESTIN MD, Ot I50.41 ACUTE COMBINED SYSTOLIC AND DIASTOLIC (C 07/23/2017 NICKO CELESTIN MD, Ot I50.9 HEART FAILURE, UNSPECIFIED 07/23/2017 NICKO CELESTIN MD Ot K76.1 CHRONIC PASSIVE CONGESTION OF LIVER 07/23/2017 NICKO CELESTIN MD Ot N50.89 OTHER SPECIFIED DISORDERS OF THE MALE GE 07/23/2017 NICKO CELESTIN MD, Ot R74.8 ABNORMAL LEVELS OF OTHER SERUM ENZYMES 07/23/2017 NICKO CELESTIN MD, Ot Z66 DO NOT RESUSCITATE 07/23/2017 NICKO CELESTIN MD, Ot Z79.818 LNG TRM (CRNT) USE OF AGNT AFF ESTROG RE 07/23/2017 NICKO CELESTIN MD, Ot Z90.79 ACQUIRED ABSENCE OF OTHER GENITAL ORGAN( 08/04/2017 ANNMARIE ARANA AUTHORIZATION COORDINATOR Ot I52 OTHER HEART DISORDERS IN DISEASES CLASSI 08/04/2017 ANNMARIE ARANA AUTHORIZATION COORDINATOR Ot R06.02 SHORTNESS OF BREATH 08/04/2017 ANNMARIE ARANA AUTHORIZATION COORDINATOR Ot R53.83 OTHER FATIGUE 08/04/2017 ANNMARIE ARANA AUTHORIZATION COORDINATOR Ot R60.0 LOCALIZED EDEMA 08/06/2017 TUNDE VELAZQUEZ MD, Ot J90 PLEURAL EFFUSION, NOT ELSEWHERE CLASSIFI 08/06/2017 TUNDE VELAZQUEZ MD, Ot K57.30 DVRTCLOS OF LG INT W/O PERFORATION OR AB 08/06/2017 TUNDE VELAZQUEZ MD Ot K80.20 CALCULUS OF GALLBLADDER W/O CHOLECYSTITI 08/06/2017 TUNDE VELAZQUEZ MD, Ot M89.9 DISORDER OF BONE, UNSPECIFIED 08/06/2017 TUNDE VELAZQUEZ MD, Ot Z08 ENCNTR FOR FOLLOW-UP EXAM AFTER TRTMT FO 08/06/2017 TUNDE VELAZQUEZ MD, Ot Z85.46 PERSONAL HISTORY OF MALIGNANT NEOPLASM O 08/06/2017 TUNDE VELAZQUEZ MD, Ot Z90.79 ACQUIRED ABSENCE OF OTHER GENITAL ORGAN( 08/10/2017 MIKAEL GONZALES FACC, ALI FACP CCDS Ot E03.9 HYPOTHYROIDISM, UNSPECIFIED 08/10/2017 MIKAEL GONZALES FACC, ALI FACP CCDS Ot E78.5 HYPERLIPIDEMIA, UNSPECIFIED 08/10/2017 MIKAEL GONZALES FACC, ALI FACP CCDS Ot I08.1 RHEUMATIC DISORDERS OF BOTH MITRAL AND T 08/10/2017 MIKAEL GONZALES FACC, SHOBHA FACP CCDS Ot I25.10 ATHSCL HEART DISEASE OF [place] CORONARY 08/10/2017 MIKAEL GONZALES FACC, ALI FACP CCDS Ot I27.20 PULMONARY HYPERTENSION, UNSPECIFIED 08/10/2017 MIKAEL GONZALES FACC, ALI FACP CCDS Ot I48.0 PAROXYSMAL ATRIAL FIBRILLATION 08/10/2017 MIKAEL GONZALES FACC, ALI FACP CCDS Ot 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 08/10/2017 MIKAEL GONZALES FACC, SHOBHA FACP CCDS Ot R74.8 ABNORMAL LEVELS OF OTHER SERUM ENZYMES 08/10/2017 MIKAEL GONZALES FACC, SHOBHA FACP CCDS Ot Z79.01 SKILLED NURSING (CURRENT) USE OF ANTICOAGULANT 08/10/2017 MIKAEL GONZLAES FACC, SHOBHA FACP CCDS Ot Z79.899 OTHER SKILLED NURSING (CURRENT) DRUG THERAPY 08/11/2017 TUNDE VELAZQUEZ MD, Ot J90 PLEURAL EFFUSION, NOT ELSEWHERE CLASSIFI 08/11/2017 TUNDE VELAZQUEZ MD, Ot K57.30 DVRTCLOS OF LG INT W/O PERFORATION OR AB 08/11/2017 TUNDE VELAZQUEZ MD, Ot K80.20 CALCULUS OF GALLBLADDER W/O CHOLECYSTITI 08/11/2017 TUNDE VELAZQUEZ MD, Ot M89.9 DISORDER OF BONE, UNSPECIFIED 08/11/2017 TUNDE VELAZQUEZ MD, Ot Z08 ENCNTR FOR FOLLOW-UP EXAM AFTER TRTMT FO 08/11/2017 TUNDE VELAZQUEZ MD, Ot Z85.46 PERSONAL HISTORY OF MALIGNANT NEOPLASM O 08/11/2017 TUNDE VELAZQUEZ MD, Ot Z90.79 ACQUIRED ABSENCE OF OTHER GENITAL ORGAN( 08/11/2017 ANNMARIE ARANA AUTHORIZATION COORDINATOR Ot I52 OTHER HEART DISORDERS IN DISEASES CLASSI 08/11/2017 ANNMARIE ARANA AUTHORIZATION COORDINATOR Ot R06.02 SHORTNESS OF BREATH 08/11/2017 ANNMARIE ARANA AUTHORIZATION COORDINATOR Ot R53.83 OTHER FATIGUE 08/11/2017 ANNMARIE ARANA AUTHORIZATION COORDINATOR Ot R60.0 LOCALIZED EDEMA 08/12/2017 MIKAEL GONZALES FACC, ALI FACP CCDS Ot E03.9 HYPOTHYROIDISM, UNSPECIFIED 08/12/[address] [facility], ALI FACP CCDS Ot E78.5 HYPERLIPIDEMIA, UNSPECIFIED 08/12/[address] [facility], ALI FACP CCDS Ot I08.1 RHEUMATIC DISORDERS OF BOTH MITRAL AND T 08/12/2017 MIKAEL GONZALES FAC, ALI FACP CCDS Ot I25.10 ATHSCL HEART DISEASE OF [place] CORONARY 08/12/[address] [facility], ALI FACP CCDS Ot I27.20 PULMONARY HYPERTENSION, UNSPECIFIED 08/12/[address] [facility], ALI FACP CCDS Ot I48.0 PAROXYSMAL ATRIAL FIBRILLATION 08/12/[address] 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, ALI FACP CCDS Ot R74.8 ABNORMAL LEVELS OF OTHER SERUM ENZYMES 08/12/[address] [facility], ALI FACP CCDS Ot Z79.01 [employer] (CURRENT) USE OF ANTICOAGULANT 08/12/[address] [facility], ALI FACP CCDS Ot Z79.899 OTHER [employer] (CURRENT) DRUG THERAPY Procedures There is no data. Results Test Result Range Complete blood count (CBC) with automated white blood cell (WBC) differential - 07/15/17 14:55 Blood leukocytes automated count (number/volume) 9.0 10*3/uL 4.3-11.0 Blood erythrocytes automated count (number/volume) 4.55 10*6/uL 4.35-5.85 Venous blood hemoglobin measurement (mass/volume) 14.6 g/dL 13.3-17.7 Blood hematocrit (volume fraction) 44 % 40-54 Automated erythrocyte mean corpuscular volume 98 [foz_us] 80-99 Automated erythrocyte mean corpuscular hemoglobin (mass per erythrocyte) 32 pg 25-34 Automated erythrocyte mean corpuscular hemoglobin concentration measurement ( mass/volume) 33 g/dL 32-36 Automated erythrocyte distribution width ratio 14.1 % 10.0-14.5 Automated blood platelet count (count/volume) 282 10*3/uL 130-400 Automated blood platelet mean volume measurement 10.5 [foz_us] 7.4-10.4 Automated blood neutrophils/100 leukocytes 74 % 42-75 Automated blood lymphocytes/100 leukocytes 15 % 12-44 Blood monocytes/100 leukocytes 10 % 0-12 Automated blood eosinophils/100 leukocytes 1 % 0-10 Automated blood basophils/100 leukocytes 0 % 0-10 Blood neutrophils automated count (number/volume) 6.7 10*3 1.8-7.8 Blood lymphocytes automated count (number/volume) 1.3 10*3 1.0-4.0 Blood monocytes automated count (number/volume) 0.9 10*3 0.0-1.0 Automated eosinophil count 0.1 10*3/uL 0.0-0.3 Automated blood basophil count (count/volume) 0.0 10*3/uL 0.0-0.1 Comprehensive metabolic panel - 07/15/17 14:55 Serum or plasma sodium measurement (moles/volume) 140 mmol/L 135-145 Serum or plasma potassium measurement (moles/volume) 4.6 mmol/L 3.6-5.0 Serum or plasma chloride measurement (moles/volume) 109 mmol/L 98-107 Carbon dioxide 21 mmol/L 21-32 Serum or plasma anion gap determination (moles/volume) 10 mmol/L 5-14 Serum or plasma urea nitrogen measurement (mass/volume) 22 mg/dL 7-18 Serum or plasma creatinine measurement (mass/volume) 0.94 mg/dL 0.60-1.30 Serum or plasma urea nitrogen/creatinine mass ratio 23 NRG Serum or plasma creatinine measurement with calculation of estimated glomerular filtration rate > NRG Serum or plasma glucose measurement (mass/volume) 117 mg/dL 70-105 Serum or plasma calcium measurement (mass/volume) 9.3 mg/dL 8.5-10.1 Serum or plasma total bilirubin measurement (mass/volume) 1.3 mg/dL 0.1-1.0 Serum or plasma alkaline phosphatase measurement (enzymatic activity/volume) 84 U/L 40-136 Serum or plasma aspartate aminotransferase measurement (enzymatic activity/ volume) 27 U/L 5-34 Serum or plasma alanine aminotransferase measurement (enzymatic activity/volume ) 32 U/L 0-55 Serum or plasma protein measurement (mass/volume) 7.4 g/dL 6.4-8.2 Serum or plasma albumin measurement (mass/volume) 4.1 g/dL 3.2-4.5 Serum or plasma lithium measurement (moles/volume) - 04/12/18 14:55 BNP level 711.2 pg/mL <100.0 THYROID STIMULATING HORMONE - 07/15/17 14:55 THYROID STIMULATING HORMONE 4.26 u[iU]/mL 0.35-4.94 Complete blood count (CBC) with automated white blood cell (WBC) differential - 07/20/17 07:50 Blood leukocytes automated count (number/volume) 10.7 10*3/uL 4.3-11.0 Blood erythrocytes automated count (number/volume) 4.53 10*6/uL 4.35-5.85 Venous blood hemoglobin measurement (mass/volume) 14.7 g/dL 13.3-17.7 Blood hematocrit (volume fraction) 45 % 40-54 Automated erythrocyte mean corpuscular volume 99 [foz_us] 80-99 Automated erythrocyte mean corpuscular hemoglobin (mass per erythrocyte) 33 pg 25-34 Automated erythrocyte mean corpuscular hemoglobin concentration measurement ( mass/volume) 33 g/dL 32-36 Automated erythrocyte distribution width ratio 14.7 % 10.0-14.5 Automated blood platelet count (count/volume) 251 10*3/uL 130-400 Automated blood platelet mean volume measurement 10.9 [foz_us] 7.4-10.4 Automated blood neutrophils/100 leukocytes 75 % 42-75 Automated blood lymphocytes/100 leukocytes 14 % 12-44 Blood monocytes/100 leukocytes 10 % 0-12 Automated blood eosinophils/100 leukocytes 1 % 0-10 Automated blood basophils/100 leukocytes 0 % 0-10 Blood neutrophils automated count (number/volume) 8.1 10*3 1.8-7.8 Blood lymphocytes automated count (number/volume) 1.5 10*3 1.0-4.0 Blood monocytes automated count (number/volume) 1.0 10*3 0.0-1.0 Automated eosinophil count 0.1 10*3/uL 0.0-0.3 Automated blood basophil count (count/volume) 0.0 10*3/uL 0.0-0.1 Comprehensive metabolic panel - 07/20/17 07:50 Serum or plasma sodium measurement (moles/volume) 140 mmol/L 135-145 Serum or plasma potassium measurement (moles/volume) 4.5 mmol/L 3.6-5.0 Serum or plasma chloride measurement (moles/volume) 108 mmol/L 98-107 Carbon dioxide 21 mmol/L 21-32 Serum or plasma anion gap determination (moles/volume) 11 mmol/L 5-14 Serum or plasma urea nitrogen measurement (mass/volume) 23 mg/dL 7-18 Serum or plasma creatinine measurement (mass/volume) 1.17 mg/dL 0.60-1.30 Serum or plasma urea nitrogen/creatinine mass ratio 20 NRG Serum or plasma creatinine measurement with calculation of estimated glomerular filtration rate 60 NRG Serum or plasma glucose measurement (mass/volume) 137 mg/dL 70-105 Serum or plasma calcium measurement (mass/volume) 9.4 mg/dL 8.5-10.1 Serum or plasma total bilirubin measurement (mass/volume) 1.8 mg/dL 0.1-1.0 Serum or plasma alkaline phosphatase measurement (enzymatic activity/volume) 101 U/L 40-136 Serum or plasma aspartate aminotransferase measurement (enzymatic activity/ volume) 74 U/L 5-34 Serum or plasma alanine aminotransferase measurement (enzymatic activity/volume ) 82 U/L 0-55 Serum or plasma protein measurement (mass/volume) 7.3 g/dL 6.4-8.2 Serum or plasma albumin measurement (mass/volume) 4.1 g/dL 3.2-4.5 Serum or plasma troponin i.cardiac measurement (mass/volume) - 07/20/17 07:50 Serum or plasma troponin i.cardiac measurement (mass/volume) < ng/ mL <0.30 Serum or plasma lithium measurement (moles/volume) - 07/20/17 07:50 BNP level 1021.0 pg/mL <100.0 Serum or plasma C reactive protein measurement (mass/volume) - 07/20/17 07:50 Serum or plasma C reactive protein measurement (mass/volume) 1.55 mg /dL 0.00-0.50 THYROID STIMULATING HORMONE - 07/20/17 07:50 THYROID STIMULATING HORMONE 5.70 u[iU]/mL 0.35-4.94 Serum or plasma thyroxine (T4) free measurement (mass/volume) - 07/20/17 07:50 Serum or plasma thyroxine (T4) free measurement (mass/volume) 1.13 ng/dL 0.70-1.48 Serum or plasma creatine kinase measurement (enzymatic activity/volume) - 07/20 07:50 Serum or plasma creatine kinase measurement (enzymatic activity/volume) 151 U/L 30-200 Magnesium - 07/20/17 07:50 Magnesium 2.3 mg/dL 1.8-2.4 Complete blood count (CBC) with automated white blood cell (WBC) differential - 07/21/17 03:55 Blood leukocytes automated count (number/volume) 10.1 10*3/uL 4.3-11.0 Blood erythrocytes automated count (number/volume) 4.26 10*6/uL 4.35-5.85 Venous blood hemoglobin measurement (mass/volume) 13.7 g/dL 13.3-17.7 Blood hematocrit (volume fraction) 42 % 40-54 Automated erythrocyte mean corpuscular volume 99 [foz_us] 80-99 Automated erythrocyte mean corpuscular hemoglobin (mass per erythrocyte) 32 pg 25-34 Automated erythrocyte mean corpuscular hemoglobin concentration measurement ( mass/volume) 33 g/dL 32-36 Automated erythrocyte distribution width ratio 14.8 % 10.0-14.5 Automated blood platelet count (count/volume) 238 10*3/uL 130-400 Automated blood platelet mean volume measurement 11.2 [foz_us] 7.4-10.4 Automated blood neutrophils/100 leukocytes 69 % 42-75 Automated blood lymphocytes/100 leukocytes 20 % 12-44 Blood monocytes/100 leukocytes 11 % 0-12 Automated blood eosinophils/100 leukocytes 1 % 0-10 Automated blood basophils/100 leukocytes 0 % 0-10 Blood neutrophils automated count (number/volume) 6.9 10*3 1.8-7.8 Blood lymphocytes automated count (number/volume) 2.0 10*3 1.0-4.0 Blood monocytes automated count (number/volume) 1.1 10*3 0.0-1.0 Automated eosinophil count 0.1 10*3/uL 0.0-0.3 Automated blood basophil count (count/volume) 0.0 10*3/uL 0.0-0.1 Comprehensive metabolic panel - 07/21/17 03:55 Serum or plasma sodium measurement (moles/volume) 142 mmol/L 135-145 Serum or plasma potassium measurement (moles/volume) 4.6 mmol/L 3.6-5.0 Serum or plasma chloride measurement (moles/volume) 105 mmol/L 98-107 Carbon dioxide 24 mmol/L 21-32 Serum or plasma anion gap determination (moles/volume) 13 mmol/L 5-14 Serum or plasma urea nitrogen measurement (mass/volume) 32 mg/dL 7-18 Serum or plasma creatinine measurement (mass/volume) 1.29 mg/dL 0.60-1.30 Serum or plasma urea nitrogen/creatinine mass ratio 25 NRG Serum or plasma creatinine measurement with calculation of estimated glomerular filtration rate 53 NRG Serum or plasma glucose measurement (mass/volume) 104 mg/dL 70-105 Serum or plasma calcium measurement (mass/volume) 9.1 mg/dL 8.5-10.1 Serum or plasma total bilirubin measurement (mass/volume) 1.6 mg/dL 0.1-1.0 Serum or plasma alkaline phosphatase measurement (enzymatic activity/volume) 94 U/L 40-136 Serum or plasma aspartate aminotransferase measurement (enzymatic activity/ volume) 255 U/L 5-34 Serum or plasma alanine aminotransferase measurement (enzymatic activity/volume ) 210 U/L 0-55 Serum or plasma protein measurement (mass/volume) 6.4 g/dL 6.4-8.2 Serum or plasma albumin measurement (mass/volume) 3.7 g/dL 3.2-4.5 Magnesium - 07/21/17 03:55 Magnesium 2.2 mg/dL 1.8-2.4 Lipid 1996 panel - 07/21/17 03:55 Serum or plasma triglyceride measurement (mass/volume) 72 mg/dL <150 Serum or plasma cholesterol measurement (mass/volume) 119 mg/dL < 200 Serum or plasma cholesterol in HDL measurement (mass/volume) 29 mg/ dL 40-60 Cholesterol in LDL [mass/volume] in serum or plasma by direct assay 80 mg/dL 1-129 Serum or plasma cholesterol in VLDL measurement (mass/volume) 14 mg/ dL 5-40 Complete blood count (CBC) with automated white blood cell (WBC) differential - 07/22/17 05:18 Blood leukocytes automated count (number/volume) 12.0 10*3/uL 4.3-11.0 Blood erythrocytes automated count (number/volume) 4.33 10*6/uL 4.35-5.85 Venous blood hemoglobin measurement (mass/volume) 14.0 g/dL 13.3-17.7 Blood hematocrit (volume fraction) 43 % 40-54 Automated erythrocyte mean corpuscular volume 99 [foz_us] 80-99 Automated erythrocyte mean corpuscular hemoglobin (mass per erythrocyte) 32 pg 25-34 Automated erythrocyte mean corpuscular hemoglobin concentration measurement ( mass/volume) 33 g/dL 32-36 Automated erythrocyte distribution width ratio 14.7 % 10.0-14.5 Automated blood platelet count (count/volume) 240 10*3/uL 130-400 Automated blood platelet mean volume measurement 11.7 [foz_us] 7.4-10.4 Automated blood neutrophils/100 leukocytes 80 % 42-75 Automated blood lymphocytes/100 leukocytes 10 % 12-44 Blood monocytes/100 leukocytes 9 % 0-12 Automated blood eosinophils/100 leukocytes 1 % 0-10 Automated blood basophils/100 leukocytes 0 % 0-10 Blood neutrophils automated count (number/volume) 9.6 10*3 1.8-7.8 Blood lymphocytes automated count (number/volume) 1.2 10*3 1.0-4.0 Blood monocytes automated count (number/volume) 1.1 10*3 0.0-1.0 Automated eosinophil count 0.1 10*3/uL 0.0-0.3 Automated blood basophil count (count/volume) 0.0 10*3/uL 0.0-0.1 Comprehensive metabolic panel - 07/22/17 05:18 Serum or plasma sodium measurement (moles/volume) 142 mmol/L 135-145 Serum or plasma potassium measurement (moles/volume) 3.5 mmol/L 3.6-5.0 Serum or plasma chloride measurement (moles/volume) 101 mmol/L 98-107 Carbon dioxide 28 mmol/L 21-32 Serum or plasma anion gap determination (moles/volume) 13 mmol/L 5-14 Serum or plasma urea nitrogen measurement (mass/volume) 31 mg/dL 7-18 Serum or plasma creatinine measurement (mass/volume) 1.02 mg/dL 0.60-1.30 Serum or plasma urea nitrogen/creatinine mass ratio 30 NRG Serum or plasma creatinine measurement with calculation of estimated glomerular filtration rate > NRG Serum or plasma glucose measurement (mass/volume) 111 mg/dL 70-105 Serum or plasma calcium measurement (mass/volume) 8.7 mg/dL 8.5-10.1 Serum or plasma total bilirubin measurement (mass/volume) 1.3 mg/dL 0.1-1.0 Serum or plasma alkaline phosphatase measurement (enzymatic activity/volume) 104 U/L 40-136 Serum or plasma aspartate aminotransferase measurement (enzymatic activity/ volume) 118 U/L 5-34 Serum or plasma alanine aminotransferase measurement (enzymatic activity/volume ) 180 U/L 0-55 Serum or plasma protein measurement (mass/volume) 6.6 g/dL 6.4-8.2 Serum or plasma albumin measurement (mass/volume) 3.8 g/dL 3.2-4.5 Complete blood count (CBC) with automated white blood cell (WBC) differential - 07/23/17 05:18 Blood leukocytes automated count (number/volume) 10.6 10*3/uL 4.3-11.0 Blood erythrocytes automated count (number/volume) 4.01 10*6/uL 4.35-5.85 Venous blood hemoglobin measurement (mass/volume) 12.9 g/dL 13.3-17.7 Blood hematocrit (volume fraction) 40 % 40-54 Automated erythrocyte mean corpuscular volume 99 [foz_us] 80-99 Automated erythrocyte mean corpuscular hemoglobin (mass per erythrocyte) 32 pg 25-34 Automated erythrocyte mean corpuscular hemoglobin concentration measurement ( mass/volume) 33 g/dL 32-36 Automated erythrocyte distribution width ratio 14.7 % 10.0-14.5 Automated blood platelet count (count/volume) 230 10*3/uL 130-400 Automated blood platelet mean volume measurement 11.3 [foz_us] 7.4-10.4 Automated blood neutrophils/100 leukocytes 79 % 42-75 Automated blood lymphocytes/100 leukocytes 11 % 12-44 Blood monocytes/100 leukocytes 9 % 0-12 Automated blood eosinophils/100 leukocytes 1 % 0-10 Automated blood basophils/100 leukocytes 0 % 0-10 Blood neutrophils automated count (number/volume) 8.3 10*3 1.8-7.8 Blood lymphocytes automated count (number/volume) 1.2 10*3 1.0-4.0 Blood monocytes automated count (number/volume) 1.0 10*3 0.0-1.0 Automated eosinophil count 0.1 10*3/uL 0.0-0.3 Automated blood basophil count (count/volume) 0.0 10*3/uL 0.0-0.1 Comprehensive metabolic panel - 07/23/17 05:18 Serum or plasma sodium measurement (moles/volume) 141 mmol/L 135-145 Serum or plasma potassium measurement (moles/volume) 3.4 mmol/L 3.6-5.0 Serum or plasma chloride measurement (moles/volume) 100 mmol/L 98-107 Carbon dioxide 29 mmol/L 21-32 Serum or plasma anion gap determination (moles/volume) 12 mmol/L 5-14 Serum or plasma urea nitrogen measurement (mass/volume) 28 mg/dL 7-18 Serum or plasma creatinine measurement (mass/volume) 1.04 mg/dL 0.60-1.30 Serum or plasma urea nitrogen/creatinine mass ratio 27 NRG Serum or plasma creatinine measurement with calculation of estimated glomerular filtration rate > NRG Serum or plasma glucose measurement (mass/volume) 110 mg/dL 70-105 Serum or plasma calcium measurement (mass/volume) 8.5 mg/dL 8.5-10.1 Serum or plasma total bilirubin measurement (mass/volume) 1.6 mg/dL 0.1-1.0 Serum or plasma alkaline phosphatase measurement (enzymatic activity/volume) 108 U/L 40-136 Serum or plasma aspartate aminotransferase measurement (enzymatic activity/ volume) 100 U/L 5-34 Serum or plasma alanine aminotransferase measurement (enzymatic activity/volume ) 170 U/L 0-55 Serum or plasma protein measurement (mass/volume) 5.9 g/dL 6.4-8.2 Serum or plasma albumin measurement (mass/volume) 3.5 g/dL 3.2-4.5 Magnesium - 07/23/17 05:18 Magnesium 2.0 mg/dL 1.8-2.4 Automated blood complete blood count (hemogram) panel - 08/10/17 12:51 Blood leukocytes automated count (number/volume) 7.1 10*3/uL 4.3-11.0 Blood erythrocytes automated count (number/volume) 4.88 10*6/uL 4.35-5.85 Venous blood hemoglobin measurement (mass/volume) 15.5 g/dL 13.3-17.7 Blood hematocrit (volume fraction) 48 % 40-54 Automated erythrocyte mean corpuscular volume 99 [foz_us] 80-99 Automated erythrocyte mean corpuscular hemoglobin (mass per erythrocyte) 32 pg 25-34 Automated erythrocyte mean corpuscular hemoglobin concentration measurement ( mass/volume) 32 g/dL 32-36 Automated erythrocyte distribution width ratio 14.3 % 10.0-14.5 Automated blood platelet count (count/volume) 231 10*3/uL 130-400 Automated blood platelet mean volume measurement 10.6 [foz_us] 7.4-10.4 Comprehensive metabolic panel - 08/10/17 12:51 Serum or plasma sodium measurement (moles/volume) 139 mmol/L 135-145 Serum or plasma potassium measurement (moles/volume) 3.6 mmol/L 3.6-5.0 Serum or plasma chloride measurement (moles/volume) 90 mmol/L 98-107 Carbon dioxide 36 mmol/L 21-32 Serum or plasma anion gap determination (moles/volume) 13 mmol/L 5-14 Serum or plasma urea nitrogen measurement (mass/volume) 27 mg/dL 7-18 Serum or plasma creatinine measurement (mass/volume) 1.26 mg/dL 0.60-1.30 Serum or plasma urea nitrogen/creatinine mass ratio 21 NRG Serum or plasma creatinine measurement with calculation of estimated glomerular filtration rate 55 NRG Serum or plasma glucose measurement (mass/volume) 108 mg/dL 70-105 Serum or plasma calcium measurement (mass/volume) 10.0 mg/dL 8.5-10.1 Serum or plasma total bilirubin measurement (mass/volume) 1.7 mg/dL 0.1-1.0 Serum or plasma alkaline phosphatase measurement (enzymatic activity/volume) 192 U/L 40-136 Serum or plasma aspartate aminotransferase measurement (enzymatic activity/ volume) 95 U/L 5-34 Serum or plasma alanine aminotransferase measurement (enzymatic activity/volume ) 143 U/L 0-55 Serum or plasma protein measurement (mass/volume) 7.9 g/dL 6.4-8.2 Serum or plasma albumin measurement (mass/volume) 4.1 g/dL 3.2-4.5 Lipid 1996 panel - 08/10/17 12:51 Serum or plasma triglyceride measurement (mass/volume) 83 mg/dL <150 Serum or plasma cholesterol measurement (mass/volume) 137 mg/dL < 200 Serum or plasma cholesterol in HDL measurement (mass/volume) 36 mg/ dL 40-60 Cholesterol in LDL [mass/volume] in serum or plasma by direct assay 88 mg/dL 1-129 Serum or plasma cholesterol in VLDL measurement (mass/volume) 17 mg/ dL 5-40 PT panel in platelet poor plasma by coagulation assay - 08/10/17 12:51 Prothrombin time (PT) in platelet poor plasma by coagulation assay 16.5 s 12.2-14.7 INR in platelet poor plasma or blood by coagulation assay 1.3 0.8-1.4 Activated partial thromboplastin time (aPTT) in platelet poor plasma bycoagulation assay - 08/10/17 12:51 Activated partial thromboplastin time (aPTT) in platelet poor plasma bycoagulation assay 34 s 24-35 THYROID STIMULATING HORMONE - 08/10/17 12:51 THYROID STIMULATING HORMONE 0.15 u[iU]/mL 0.35-4.94 Methicillin resistant Staphylococcus aureus (MRSA) screening culture - 12:51 Methicillin resistant Staphylococcus aureus (MRSA) screening culture NEG NRG Encounters ACCT No. Visit Date/Time Discharge Status Pt. Type Provider Facility Loc./Unit Complaint [id number] 08/10/2017 12:06:00 08/10/2017 18:25:00 DIS Outpatient MIKAEL GONZALES FACC, SHOBHA DENSON CCDS [facility] CATH CHF,PAF,SOB, ANGINA [id number] 07/20/2017 09:42:00 07/23/2017 14:45:00 DIS Inpatient FAWAD GONZALES, NICKO Sanchez [facility] 4TH NEW ONSET AFIB W/RVR, FLUID OVERLOAD [id number] 07/16/2017 10:29:00 07/16/2017 23:59:59 CLS Outpatient TUNDE VELAZQUEZ MD [facility] RAD PROSTATE CANCER [id number] 07/15/2017 14:45:00 07/15/2017 23:59:59 CLS Outpatient ANNMARIE ARANA APRN [facility] CARD EDEMA OF BOTH LEGS, SOB,IRREGULAR HEART BEAT [id number] 07/06/2017 16:11:00 07/06/2017 23:59:59 CLS Preadmit TUNDE VELAZQUEZ MD [facility] RAD PROSTATE CANCER [id number] 10/29/2014 15:31:00 10/29/2014 23:59:59 CLS Outpatient LE CARBAJAL MD [facility] RAD 2 MO HX PAIN POST FALL [id number] 10/05/2013 10:46:00 10/05/2013 23:59:59 CLS Outpatient CAROLINE GONZALES, TUNDE [facility] CARD PROSTATE CA [id number] 07/14/2017 16:11:00 Document Registration [id number] 04/25/2015 11:49:00 Document Registration [id number] 03/16/2012 11:59:00 Document Registration [id number] 10/29/2014 15:35:24 ACT Document Registration
[2017-09-04 13:06] VITALS: BP 93/57
== END 2017-09-04 13:21 | disposition left against medical advice (07) ==
LOC: EDUNIT# 11:38 → ER 11:40
DX: K08.89 Other specified disorders of teeth and supporting structures (principal); R19.7 Diarrhea, unspecified; R50.9 Fever, unspecified
CPT/HCPCS: 99281

== ENCOUNTER → 2017-10-02 | Outpatient (CLI) | payer MEDICARE ==
[~2017-10-02] MED LIST changes: +TRAZ-189 PO; -TRAZ-28 PO
--- NOTE | 2017-10-02 11:32 | Diagnostic Imaging Report ---
INDICATION: Neck and back pain. COMPARISON: None. FINDINGS: Four views of the cervical column demonstrate normal alignment. There is no subluxation or fracture. Mild degenerative disc disease and facet joint arthropathy is seen. There is no osseous lesion. IMPRESSION: Mild diffuse degenerative changes. Dictated by: Dictated on workstation # [id number]
--- NOTE | 2017-10-02 11:34 | Diagnostic Imaging Report ---
INDICATION: Back pain. COMPARISON: None. FINDINGS: Three views of the thoracic spine demonstrate normal alignment. There is mlxz-no-ipwoecyo diffuse degenerative disc disease. No osseous lesion seen. IMPRESSION: 1. No traumatic malalignment or fracture. 2. Degenerative disc disease. Dictated by: Dictated on workstation # [id number]
== END ==
LOC: RAD 10:26
PROVIDERS: ATTEND Family Medicine
DX: M47.812 Spondylosis without myelopathy or radiculopathy, cervical region (principal); M51.34 Other intervertebral disc degeneration, thoracic region
CPT/HCPCS: 72040; 72072

== ENCOUNTER → 2017-11-04 | Outpatient (CLI) | payer MEDICARE ==
--- NOTE | 2017-11-04 08:30 | Diagnostic Imaging Report ---
PROCEDURE: MR imaging cervical spine without contrast. TECHNIQUE: Multiplanar, multisequence MR imaging of the cervical spine was performed without contrast. Indication: Bilateral arm pain and weakness. No prior studies are available for comparison. Curvature and alignment of the cervical spine is normal. The vertebral body marrow signal is normal. No geographic marrow lesion is seen. There is some generalized disc desiccation compatible with degenerative disc disease but no significant disc space narrowing is identified. The cervical cord demonstrates normal homogeneous signal intensity and normal morphology. No abnormal cord signal is detected. C2-3: No central canal or neural foraminal stenosis is identified. C3-4: Uncovertebral joint degenerative changes noted. This results in mild neural foraminal narrowing bilaterally. Central canal is widely patent. C4-5: No significant central canal or neural foraminal narrowing is seen. C5-6: No significant central canal or neural foraminal stenosis is seen. C6-7: No central canal or neural foraminal stenosis is seen. C7-T1: Unremarkable. Impression: Mild generalized cervical spondylosis. There appears to be a mild neural foramina narrowing bilaterally C3-4. No central canal stenosis is detected. Dictated by: Dictated on workstation # [id number]
== END ==
LOC: RAD 07:05
PROVIDERS: ATTEND Student in an Organized Health Care Education/Training Program
DX: M47.812 Spondylosis without myelopathy or radiculopathy, cervical region (principal); M50.30 Other cervical disc degeneration, unspecified cervical region
CPT/HCPCS: 72141

== ENCOUNTER → 2018-01-25 | Outpatient (CLI) | payer MEDICARE ==
[2018-01-25 08:32] LABS: BILIRUBIN,URINE NEGATIVE (NEGATIVE); CLARITY,URINE CLEAR; COLOR,URINE YELLOW; GLUCOSE, URINE (UA) NEGATIVE (NEGATIVE); KETONES,URINE NEGATIVE (NEGATIVE); LEUKOCYTE ESTERASE ,URINE NEGATIVE (NEGATIVE); NITRITE,URINE NEGATIVE (NEGATIVE); PH,URINE 5 (5-9); PROTEIN,URINE NEGATIVE (NEGATIVE); UROBILINOGEN,URINE NORMAL (NORMAL)
[2018-01-25 08:43] LABS: BACTERIA,URINE NEGATIVE /HPF; RBC,URINE 0-2 /HPF
== END ==
LOC: LAB 08:20
PROVIDERS: ATTEND Thoracic Surgery (Cardiothoracic Vascular Surgery)
DX: Z01.818 Encounter for other preprocedural examination (principal); I34.0 Nonrheumatic mitral (valve) insufficiency
CPT/HCPCS: 81000

== ENCOUNTER → 2018-03-30 | Outpatient (CLI) | payer MEDICARE | LOC: CARD 08:33 | PROVIDERS: ATTEND Nurse Practitioner Family | DX: I25.10 Atherosclerotic heart disease of native coronary artery without angina pectoris (principal); I25.5 Ischemic cardiomyopathy; I48.0 Paroxysmal atrial fibrillation; I50.42 Chronic combined systolic (congestive) and diastolic (congestive) heart failure; Z95.4 Presence of other heart-valve replacement | CPT/HCPCS: 93306 ==

== ENCOUNTER → 2020-11-05 | Outpatient (CLI) | payer MEDICARE ==
[~2020-11-05] MED LIST changes: -ACET-77 PO; +ACET-78 PO; -ENAL5TAB PO; +ENLP5T PO; -MELA3TAB PO; +MELA3TAB39 PO; -METO-395 PO; +MTP100TCR PO; -TRAZ-189 PO; +TRZ50T PO
== END ==
LOC: CARD 10:30
PROVIDERS: ATTEND Internal Medicine Cardiovascular Disease
DX: I08.1 Rheumatic disorders of both mitral and tricuspid valves (principal)
CPT/HCPCS: 93306

== ENCOUNTER → 2020-11-12 | Outpatient (CLI) | payer MEDICARE ==
[~2020-11-12] MED LIST changes: +CATHETER FLUSH 10 ML SYR IV PRN; +REGADENOSON 0.4 MG/5 ML SYR (LEXISCAN) IV ONE
[2020-11-12 09:32] VITALS: BP 129/68
--- NOTE | 2020-11-12 15:43 | STRESS TEST ---
DATE OF SERVICE: 11/12/2020 RESTING AND POST REGADENOSON TECHNETIUM-99M TETROFOSMIN SPECT CT IMAGING ORDERING PHYSICIAN: Dr. Mcneill. PRIMARY PHYSICIAN: Dr. Corbin. CLINICAL DIAGNOSIS: Shortness of breath. Baseline images were carried out after injection of 10.75 mCi of technetium-99m Tetrofosmin. This was followed by 0.4 mg regadenoson and 29.2 mCi of technetium-99m Tetrofosmin for stress imaging. The electrocardiogram showed sinus rhythm with first degree atrioventricular block and right bundle branch block at baseline. This did not change significantly with the regadenoson. The patient tolerated the procedure well. Review of images at rest and following stress do not indicate evidence of significant myocardial ischemia or infarction. Gated images show normal global left ventricular systolic function and normal regional wall motion. Left ventricular ejection fraction is calculated to be 54%. CONCLUSIONS: 1. No evidence of any significant myocardial ischemia or infarction on this study. 2. Normal regional wall motion. 3. Normal global left ventricular systolic function with a calculated ejection fraction of 54%. Job ID: [id number] DocumentID: [id number] Dictated Date: 11/12/2020 14:52:26 [employer] [place] Date: 11/12/2020 15:43:40 Dictated By: SHOBHA MCNEILL MD, MA, FACP, FACC, MTDD
== END ==
LOC: CARD 08:15
PROVIDERS: ATTEND Internal Medicine Cardiovascular Disease
DX: R06.09 Other forms of dyspnea (principal); R06.02 Shortness of breath
CPT/HCPCS: 78452; 93017; A9502

== ENCOUNTER 2023-01-15 12:07 | Inpatient (IN) | payer MEDICARE ==
[~2023-01-15] VITALS: Ht 167 cm; Wt 84.2 kg
[~2023-01-15 12:07] MED LIST changes: -CATHETER FLUSH 10 ML SYR IV PRN; +ENAL-66 PO; -ENLP5T PO; +POTA-169 PO; +POTA-330 PO; -POTA-51 PO; -POTA20TA8 PO; -REGADENOSON 0.4 MG/5 ML SYR (LEXISCAN) IV ONE
[2023-01-15 12:46] LABS: BASOPHILS % (AUTO) 0 % (0-10); EOSINOPHILS # (AUTO) 0.1 10^3/uL (0.0-0.3); EOSINOPHILS % (AUTO) 2 % (0-10); HEMATOCRIT 33 % (40-54); HEMOGLOBIN 10.3 g/dL (13.3-17.7); LYMPHOCYTES % (AUTO) 16 % (12-44); MEAN CORPUSCULAR HEMOGLOBIN 31 pg (25-34); MEAN CORPUSCULAR HGB CONC 32 g/dL (32-36); MEAN CORPUSCULAR VOLUME 99 fL (80-99); MEAN PLATELET VOLUME 10.3 fL (9.0-12.2); MONOCYTES # (AUTO) 0.7 10^3/uL (0.0-1.0); MONOCYTES % (AUTO) 11 % (0-12); NEUTROPHILS # (AUTO) 4.5 10^3/uL (1.8-7.8); NEUTROPHILS % (AUTO) 71 % (42-75); PLATELET COUNT 213 10^3/uL (130-400); WHITE BLOOD COUNT 6.3 10^3/uL (4.3-11.0)
[2023-01-15 12:56] LABS: ALBUMIN 3.6 GM/DL (3.2-4.5); CHLORIDE 102 MMOL/L (98-107); SODIUM 136 MMOL/L (135-145)
[2023-01-15 12:57] LABS: CALCIUM 8.7 MG/DL (8.5-10.1)
[2023-01-15 12:59] LABS: GLUCOSE 116 MG/DL (70-105); TOTAL PROTEIN 7.3 GM/DL (6.4-8.2)
[2023-01-15 13:00] LABS: BILIRUBIN,TOTAL 0.6 MG/DL (0.1-1.0); CARBON DIOXIDE 20 MMOL/L (21-32)
[2023-01-15 13:02] LABS: ALKALINE PHOSPHATASE 178 U/L (40-136); CREATININE SERUM 3.38 MG/DL (0.60-1.30); GFR ESTIMATED 17
[2023-01-15 13:03] LABS: BUN/CREATININE RATIO 22
[2023-01-15 13:05] LABS: ALANINE AMINOTRANSFERASE 64 U/L (0-55); MAGNESIUM 2.9 MG/DL (1.6-2.4)
--- NOTE | 2023-01-15 13:20 | Diagnostic Imaging Report ---
EXAMINATION: Chest 1 view. HISTORY: Weakness. COMPARISON: 07/20/2017. FINDINGS: The lung volumes are normal. No focal consolidation is seen. No large pleural effusion or pneumothorax is seen. The cardiomediastinal silhouette is normal in size with post-CABG changes noted. There is calcified aortic atherosclerotic plaque. Calcified mediastinal lymph nodes are seen. No acute osseous abnormality is seen. IMPRESSION: 1. No acute pleural-parenchymal process. Dictated by: Dictated on workstation # [id number]
--- NOTE | 2023-01-15 13:24 | Diagnostic Imaging Report ---
CLINICAL HISTORY: Weakness. Pelvic and left hip pain. COMPARISON: September 2017. TECHNIQUE: Three views of the pelvis and left hip. FINDINGS: There is no acute fracture or dislocation of the pelvis and left hip. Alignment is anatomic. Surgical screws are partially visualized in the proximal right femur. Surgical clips are seen throughout the pelvis. Vascular calcifications are noted in the lower extremities. IMPRESSION: 1. No acute fracture or dislocation in the pelvis and left hip. Dictated by: Dictated on workstation # [id number]
[2023-01-15 13:25] LABS: TSH (THYROID ANALYZER) 3.23 UIU/ML (0.35-4.94)
--- NOTE | 2023-01-15 13:32 | Diagnostic Imaging Report ---
PROCEDURE: CT head without contrast. TECHNIQUE: Multiple contiguous axial images were obtained through the brain without the use of intravenous contrast. Auto Exposure Controls were utilized during the CT exam to meet ALARA standards for radiation dose reduction. INDICATION: Head injury. Weakness. COMPARISON: None. FINDINGS: Ziqtrtol-nx-onjlanll volume loss and leukoaraiosis. No intracranial hemorrhage, mass effect, hydrocephalus or extra-axial fluid collections. No CT evidence of a territorial infarction. Osseous structures are intact. The mastoids are clear. Mild mucosal thickening in the right maxillary sinus. IMPRESSION: No acute intracranial CT findings. Chronic findings as above. Dictated by: Dictated on workstation # [id number]
[2023-01-15 13:51] LABS: BACTERIA,URINE NEGATIVE /HPF; BILIRUBIN,URINE NEGATIVE (NEGATIVE); CLARITY,URINE CLEAR; COLOR,URINE YELLOW; GLUCOSE, URINE (UA) NEGATIVE (NEGATIVE); KETONES,URINE NEGATIVE (NEGATIVE); LEUKOCYTE ESTERASE ,URINE NEGATIVE (NEGATIVE); NITRITE,URINE NEGATIVE (NEGATIVE); PH,URINE 5.5 (5-9); PROTEIN,URINE NEGATIVE (NEGATIVE)
[2023-01-15] MEDS ORDERED: NS IV 500 ML 500 ML IV ONE (14:15)
--- NOTE | 2023-01-15 14:39 | Diagnostic Imaging Report ---
CT ABDOMEN/PELVIS WO TECHNIQUE: Unenhanced CT imaging of the abdomen and pelvis was performed. 2-D reformats are created and submitted for interpretation. Automatic exposure controls were utilized to optimize patient dose. INDICATION: Abdominal pain COMPARISON: 07/16/2017 FINDINGS: Lower chest: The lung bases are clear. No pericardial or pleural effusion. Peritoneum: No free intraperitoneal air or fluid. Liver and biliary system: Unenhanced liver is normal. Cholelithiasis without features of acute cholecystitis. No biliary duct dilatation. Spleen and Pancreas: Spleen is normal. Stable 2.5 x 1.7 m cyst in the head of the pancreas that can be considered benign given greater than 5 year stability. Remainder of unenhanced pancreas is unremarkable. Adrenals: Normal. tract: No renal or ureteral calculi. No obstructive uropathy. There is some soft tissue nodularity along the anterior aspect of Gerota's fascia on the left. Largest nodule measures 1.6 x 0.8 cm. GI tract: Stomach is decompressed. No bowel obstruction. No pericolonic inflammatory changes. Normal appendix. Vasculature and Lymph nodes: Normal caliber abdominal aorta. While there is no lymphadenopathy, there is some spiculation soft tissue nodularity in the retroperitoneum around the distal aorta which is new. Musculoskeletal: Increased density has developed in the L2, L5 and a few mid thoracic vertebrae suspicious for skeletal metastasis. A sclerotic focus also present in the posterior aspect right ilium. IMPRESSION: 1. No acute inflammatory or obstructive process. 2. Retroperitoneal soft tissue nodularity has developed. Additionally, there are multifocal blastic lesions within the spine and pelvis. These features all suspicious for metastatic prostate cancer. Dictated by: Dictated on workstation # [id number]
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
[2023-01-15 17:28] VITALS: BP 136/65
[2023-01-15] MEDS ORDERED: diphenhydrAMINE 25 MG TABLET PO PRN (17:30)
[2023-01-15] MEDS ORDERED: diphenhydrAMINE INJ 50 MG/ML VIAL IVP PRN (17:30)
[2023-01-15] MEDS ORDERED: LACTULOSE SYRUP 10GM/15ML 30ML UDC PO PRN (17:30)
[2023-01-15] MEDS ORDERED: CALCIUM CARBONATE 500 MG CHEW TABLET PO PRN (17:30)
[2023-01-15] MEDS ORDERED: MILK OF MAGNESIA 400 MG/5 ML 30 ML UDC PO PRN (17:30)
[2023-01-15] MEDS ORDERED: ONDANSETRON INJECTION 4 MG/2 ML (SDV) IV PRN (17:30)
[2023-01-15] MEDS ORDERED: BISACODYL 10 MG SUPPOSITORY PR PRN (17:30)
[2023-01-15] MEDS ORDERED: ANTACID SUSPENSION 30 ML UDC PO PRN (17:30)
[2023-01-15] MEDS ORDERED: ONDANSETRON 4 MG ORAL DISSOLVE TABLET PO PRN (17:30)
[2023-01-15] MEDS ORDERED: MELATONIN 3 MG TABLET PO PRN (17:30)
[2023-01-15 17:46] VITALS: BP 109/72
[2023-01-15] MEDS: NS IV 1000 ML 1,000 ML IV SCH (18:23)
[2023-01-15 19:27] VITALS: BP 108/58
[2023-01-15] MEDS: SENNOSIDES 8.6 MG TABLET PO SCH (19:58)
[2023-01-15] MEDS: DOCUSATE SODIUM 100 MG CAPSULE PO SCH (19:58)
[2023-01-15] MEDS: ACETAMINOPHEN 325 MG TABLET PO PRN (20:03)
[2023-01-15] MEDS: traZODone 50 MG (DESYREL) TAB PO SCH (21:38)
[2023-01-15 23:38] VITALS: BP 102/59
[2023-01-16] MEDS: NS IV 1000 ML 1,000 ML IV SCH ×4 (02:25→21:54)
[2023-01-16 04:07] VITALS: BP 106/55
[2023-01-16 05:27] LABS: HEMATOCRIT 33 % (40-54); HEMOGLOBIN 10.8 g/dL (13.3-17.7); MEAN CORPUSCULAR HEMOGLOBIN 32 pg (25-34); MEAN CORPUSCULAR HGB CONC 33 g/dL (32-36); MEAN CORPUSCULAR VOLUME 98 fL (80-99); MEAN PLATELET VOLUME 10.1 fL (9.0-12.2); PLATELET COUNT 232 10^3/uL (130-400); WHITE BLOOD COUNT 6.8 10^3/uL (4.3-11.0)
[2023-01-16 05:45] LABS: ALBUMIN 3.7 GM/DL (3.2-4.5); BILIRUBIN,TOTAL 0.6 MG/DL (0.1-1.0); CALCIUM 8.8 MG/DL (8.5-10.1); CREATININE SERUM 2.98 MG/DL (0.60-1.30); POTASSIUM 5.2 MMOL/L (3.6-5.0); TOTAL PROTEIN 7.3 GM/DL (6.4-8.2)
[2023-01-16] MEDS: LEVOTHYROXINE 100 MCG TABLET PO SCH (05:56)
[2023-01-16 08:06] VITALS: BP 128/59
[2023-01-16] MEDS: AMIODARONE 200 MG TABLET PO SCH (08:48)
[2023-01-16] MEDS: ACETAMINOPHEN 325 MG TABLET PO PRN ×3 (08:48→18:33)
[2023-01-16] MEDS: DOCUSATE SODIUM 100 MG CAPSULE PO SCH ×2 (08:48→19:52)
[2023-01-16] MEDS: SENNOSIDES 8.6 MG TABLET PO SCH ×2 (08:48→19:52)
--- NOTE | 2023-01-16 09:41 | Physical Therapy Evaluation ---
PT Evaluation-General Medical Diagnosis Admission Date Jan 15, 2023 at 16:59 Medical Diagnosis: prostate cancer with bone mets Onset Date: Jan 15, 2023 Therapy Diagnosis Therapy Diagnosis: debility/weakness Height/Weight Height (Feet): 5 Height (Inches): 7.00 Weight (Pounds): 160 Weight (Ounces): 0.0 Precautions Precautions/Isolations: Fall Prevention, Standard Precautions Referral Physician: Mitchell Reason for Referral: Evaluation/Treatment Medical History Pertinent Medical History: Atrial Fib, Hypothroidism, Smoking Current History EMS secondary to weakness and fall with initial refusal to transfer Reviewed History: Yes Social History Home: Single Level Current Living Status: Children Entry Into Home: Stairs With Railing PT Steps Into Home: 2 Prior Prior Level of Function SCALE: Activities may be completed with or without assistive devices. 6-Vuaqoiddjp-tffowwq completes the activity by him/herself with no assistance from a helper. 5-Set-up or Clean-up Assistance-helper sets up or cleans up; patient completes activity. [place] assists only prior to or following the activity. 4-Supervision or Touching Assistance-helper provides verbal cues and/or touching/steadying and/or contact guard assistance as patient completes activity. Assistance may be provided throughout the activity or intermittently. 3-Partial/Moderate Assistance-helper does LESS THAN HALF the effort. [place] lifts, holds or supports trunk or limbs, but provides less than half the effort. 2-Substantial/Maximal Assistance-helper does MORE THAN HALF the effort. [place] lifts or holds trunk or limbs and provides more than half the effort. 7-Aoonoavcj-xoklcn does ALL the effort. Patient does none of the effort to complete the activity. Or, the assistance of 2 or more helpers is required for the patient to complete the activity. If activity was not attempted, code reason: 7-Patient Refused. 9-Not Applicable-not attempted and the patient did not perform the activity before the current illness, exacerbation or injury. 10-Not Attempted due to Environmental Limitations-(lack of equipment, weather restraints, etc.). 88-Not Attempted due to Medical Conditions or Safety Concerns. Bed Mobility: 6 Transfers (B,C,W/C): 6 Gait: 6 Stairs: 6 Indoor Mobility (Ambulation): Independent Stairs: Independent Prior Devices Use: Other-see list below Prior Device Use: cane PT Evaluation-Current Subjective Patient agrees to PT Pain Numeric Pain Scale: 0-No Pain Location: No Pain Reported Objective Patient Orientation: Normal For Age Attachments: IV ROM/Strength ROM Lower Extremities bilateral LE WFL Strength Lower Extremities 4-/5 grossly bilateral LE all plans Integumentary/Posture Bladder Incontinence: No Posture trunk flexed posture Neuromuscular (Tone, Coordination, Reflexes) grossly intact Sensory Vision: Functional Hearing: Functional Transfers Lying to Sitting/Side of Bed(Q: 4 Sit to Stand (QC): 4 Chair/Xad-ki-Osswq Xfer(QC): 4 Gait Mode of Locomotion: Walk Anticipated Mode of Locomotion: Walk Walk 10 feet (QC): 4 Walk 50 ft with 2 Turns(QC): 4 Walk 150 ft (QC): 4 Distance: 250' Gait Assistive Device: FWW Comments/Gait Description safe and functional with no deviation Balance Sitting Static: Normal Sitting Dynamic: Normal Standing Static: Normal Standing Dynamic: Normal Assessment/Needs Patient will benefit from short term skilled PT to address functional strength and mobility to improve current LOF to safely return to home with son at maximum LOF. Rehab Potential: Fair PT Nursing Home Goals Nursing Home Goals PT Nursing Home Goals Time Frame: Jan 23, 2023 Roll Left & Right (QC): 6 Sit to Lying (QC): 6 Lying-Sitting on Side/Bed(QC): 6 Sit to Stand (QC): 6 Chair/Jnp-hm-Cphpl Xfer(QC): 6 Toilet Transfer (QC): 6 Walk 10 feet (QC): 5 Walk 50ft with 2 Turns (QC): 5 Walk 150 ft (QC): 5 PT Plan Problem List Problem List: Activity Tolerance, Safety Treatment/Plan Treatment Plan: Continue Plan of Care Treatment Plan: Education, Functional Activity [place], Functional Strength, Gait, Safety, Therapeutic Exercise, Transfers Treatment Duration: Jan 23, 2023 Frequency: 5 times per week Estimated Hrs Per Day: .25 hour per day Patient and/or Family Agrees t: Yes Time Time In: 832 Time Out: 844 DATE: Jan 16, 2023 Total Billed Treatment Time: 12 Total Billed Treatment 1 visit EVModC 12 min JENNIFER GARZA PT Jan 16, 2023 09:41
--- NOTE | 2023-01-16 10:23 | History & Physical-Hospitalist ---
DORIE ENRIQUEZ 01/16/23 1023: History of Present Illness HPI/Chief Complaint 87M with a PMH of prostate cancer and surgery 28 years ago, heart dz, on antico agulants presents with progressive pain and weakness in his low back, thighs, and left wrist after slipping on a towel on Wednesday and falling backwards. He was brought into the ED yesterday by EMS, where a CXR, CT head, hip/abd X-ray, and abd/pelvis CT were done, which showed no acute changes or injury but likely metastatic prostate cancer in the spine and pelvis. The pt says he has had low back pain and constipation that has been noticeably worse the past 2 months. Source: patient Date Seen 01/16/23 Attending Physician Eliz Corbin MD PCP Admitting Physician: Nicko Medrano MD Attending Physician: Nicko Medrano MD Referring Physician Date of Admission Jan 15, 2023 at 16:59 Home Medications & Allergies Home Medications Reviewed patient Home Medication Reconciliation performed by pharmacy medication reconciliations medical technician and/or nursing. Patients Allergies have been reviewed. Allergies Allergies Coded Allergies No Known Drug Allergies (Unverified04/25/15) Past Piynexf-Xvrlyg-Nfjcpc Hx Patient Social History Tobacco Use?: No Use of E-Cig and/or Vaping dev: No Substance use?: No Alcohol Use?: Yes Alcohol Frequency: Once in a while Pt feels they are or have been: No Immunizations Up To Date Tetanus Booster (TDap): Unknown Hepatitis A: No Hepatitis B: No Date of Pneumonia Vaccine: August 10, 2008 Seasonal Allergies Seasonal Allergies: No Current Status Advance Directives: Yes Advance Directive Location: Scanned into EMR Communicates: Verbally Primary Language: Somali Preferred Spoken Language: Somali Is interpretation needed?: No Implanted or Applied Medical D: Pacemaker Past Medical History Surgeries: Orthopedic (femur fracture repair at 25 y/o), Pacemaker, Prostatectomy (at 60 y/o), Valve Replacement (mitral bioprosthetic) Atrial Fibrillation, Congenital Heart Disease, High Cholesterol (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), Valvular Heart Disease (mitral) Prostate Problems Chronic Constipation (worsening last 2 months) Chronic Back Pain (worsening last 2 months), Fractures Hypothyroidsim Cataract Hearing Impairment: Hard of Hearing Prostate Did You Recieve Any Treatments: Yes What Type of Treatment Did You: Chemotherapy, Surgical Intervention Anxiety, Depression Blood Disorders: No Adverse Reaction/Blood Tranf: No Family Medical History Reviewed Nursing Family Hx Heart Disease (mom, siblings), Cancer (dad, stomach) Review of Systems Constitutional: No chills, No fever; weight loss (intentional, diet, 30lbs) EENTM: vision loss (cataracts); No blurred vision, No double vision Respiratory: No cough, No hemoptysis, No short of breath Cardiovascular: No chest pain, No palpitations Gastrointestinal: No abdominal pain; constipation; No hematemesis, No melena Genitourinary: No dysuria, No hematuria; incontinence Musculoskeletal: back pain, muscle pain Skin: change in color (left wrist), lesions (left wrist) Psychiatric/Neurological: Anxiety, Depressed Physical Exam Physical Exam Vital Signs Vital Signs - First Documented 01/15/23 01/15/23 01/15/23 12:11 17:28 17:46 Temp 36.6 Pulse 76 Resp 18 B/P (MAP) 109/72 (84) Pulse Ox 98 O2 Delivery Room Air FiO2 21 Capillary Refill : Less Than 3 Seconds Height, Weight, BMI Height: 5'7.00" Weight: 160lbs. 0.0oz. [id number]; 30.15 BMI Method:Stated General Appearance: No Apparent Distress, WD/WN HEENT: PERRL/EOMI; No Scleral Icterus (L), No Scleral Icterus (R) Neck: Non Tender; No JVD Respiratory: Lungs Clear, Normal Breath Sounds, No Accessory Muscle Use, No Respiratory Distress Cardiovascular: Regular Rate, Rhythm (pacemaker), No JVD, No Murmur Gastrointestinal: Non Tender, Soft; No Distended, No Guarding Extremity: Non Tender, Pedal Edema (very mild) Neurologic/Psychiatric: Alert, Oriented x3 Skin: Warm/Dry, Ecchymosis (left wrist) Results Results/Procedures Labs Laboratory Tests 01/15/23 12:38 01/16/23 05:13 Patient resulted labs reviewed. 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 He was found on imaging to have what appears to be widely metastatic disease concerning for prostate origin. He does have a history of prostate cnacer but could not tolerate hormonal treatment and has not been on it for quite some time. He was also found to have an CHRISTINA. Will continue IVF and trend sleever. Will check a phosph level. Oncology consulted, spoke with Dr Huitron who will try to see him and his family today. I also updated Dr Corbin regarding these findings and plan for admission on day of admission. PT/OT consulted. Consider IRF. Supervisory-Addendum Brief Verification & Attestation Participated in pt care: history, MDM, physical Personally performed: exam, history, MDM, supervision of care Care discussed with: Medical Student Procedures: n/a Results interpretation: Verified all documentation Verification and Attestation of Medical Student E/M Service A medical student performed and documented this service in my presence. I reviewed and verified all information documented by the medical student and made modifications to such information, when appropriate. I personally performed the physical exam and medical decision making. Nicko Medrano, Jan 16, 2023,11:25 DORIE ENRIQUEZ Jan 16, 2023 10:23 NICKO MEDRANO MD Jan 16, 2023 11:30
[2023-01-16 12:14] VITALS: BP 106/56
[2023-01-16] MEDS ORDERED: AMIO200T65 PO (15:18)
[2023-01-16] MEDS ORDERED: LISI10TA25 PO (15:18)
[2023-01-16] MEDS ORDERED: METO50TA7 PO (15:18)
[2023-01-16] MEDS ORDERED: ATOR40TA70 PO (15:18)
[2023-01-16] MEDS ORDERED: CYCL5TAB PO (15:18)
[2023-01-16] MEDS ORDERED: SPIR25TA5 PO (15:18)
[2023-01-16] MEDS ORDERED: LEVO100T PO (15:18)
[2023-01-16 16:15] VITALS: BP 118/64
--- NOTE | 2023-01-16 16:34 | CONSULTATION REPORT ---
Patient is admitted to room 448. PHYSICIAN REQUESTING CONSULTATION: Florence Medrano MD PRIMARY PHYSICIAN: Eliz Corbin M.D. IMPRESSION: 1. An 87-year-old male admitted to the hospital with worsening fatigue and history of fall at home. 2. Remote history of prostate cancer with a radical prostatectomy approximately 28 years ago. 3. Biochemical recurrence with radiation therapy more than 15 years ago. 4. Recurrent disease and treated with hormone therapy x1 in 2018, which caused the patient to have atrial fibrillation with rapid ventricular response and congestive heart failure. The patient has not taken hormone therapy since then. 5. Significant constipation. 6. Admission CT scans with evidence of sclerotic bony lesions consistent with metastatic disease. RECOMMENDATIONS: 1. Obtain baseline PSA level. 2. Control constipation with medications and hydration. 3. academic services professional consult regarding living arrangements. The patient lives with his son in [place]. Son is unable to take care of him at this point. The patient may need rehabilitation and strengthening before he can return home. If unable to return home, he may need an assisted care facility. 4. Bony pain, most likely related to metastatic disease as well as recent fall. If the pain is worsening, he may need palliative radiation therapy for pain control. 5. We will follow the patient with you. HISTORY OF PRESENT ILLNESS: The patient is an 87-year-old male who presented to the ER because of worsening weakness, back pain and inability to manage at home. He had a fall at home recently with significant bruising. He was evaluated in the emergency room with no evidence of fractures, but a CT scan of the abdomen and pelvis showed a sclerotic bony lesions consistent with metastatic disease. Also had evidence of significant constipation. He was admitted to the hospital for further evaluation and Medical Oncology consultation was requested for concurrent care. PAST MEDICAL HISTORY: Significant for prostate cancer diagnosed 28 years ago and underwent a prostatectomy. He gave history of biochemical recurrence requiring radiation therapy to the pelvis approximately 15 years ago. Her PSA continued to increase and eventually in 2018, he was treated with hormone therapy with an LHRH agonists, but had significant side effects related to this including atrial fibrillation with congestive heart failure. He also had a mitral valvular disease requiring a mitral valve replacement using a bioprosthetic valve in 2018. He had a pacemaker placed and has regular followups with cardiology with Dr. Torres. SOCIAL HISTORY: The patient is a and lives with his son in [place]. He has another son who lives in [place], [place]. 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 No history of tobacco or recreational drug use. He used alcohol socially in the remote past and does not drink now. FAMILY HISTORY: Unremarkable and noncontributory. REVIEW OF SYSTEMS: Significant for generalized weakness and bone pain, especially in his lower back. He has constipation, but denied hematochezia or melena. PHYSICAL EXAMINATION: GENERAL: Showed an elderly male, awake and oriented, answering questions appropriately. VITAL SIGNS: Temperature was 36.3, pulse rate of 66, respirations 16, blood pressure 106/56 with oxygen saturation 96% on room air. HEENT: Normocephalic with male pattern baldness. Extraocular muscles intact, conjunctivae pink, oral mucosa moist. NECK: Supple, with no JVD. NODES: No cervical, supraclavicular or axillary lymphadenopathy palpable. Examination of the chest showed a left-sided pacemaker. LUNGS: Fairly clear to auscultation without wheezes or rales. CARDIOVASCULAR: Regular with occasional missed beats. ABDOMEN: Slightly distended, soft with mild diffuse tenderness without guarding or rebound. EXTREMITIES: Showed no edema. Few ecchymosis. Left hand and wrist in Myron wrap. Ecchymosis on both hips from recent fall. NEUROLOGIC: Showed no focal motor deficits. Overall, motor strength 4/5 bilaterally. CBC done today showed WBC 6.8, hemoglobin 10.8, platelet count 232,000. Chemistry panel today showed normal electrolytes except potassium level of 5.2. BUN was 67 and creatinine 2.98 with GFR 20 mL per minute. Nonfasting glucose was 125, AST was elevated at 57, ALT 65 and alkaline phosphatase 189. Corrected calcium was 9.0. CT scan of the abdomen and pelvis done at the emergency room showed retroperitoneal soft tissue nodularity and multifocal blastic lesions within the spine and pelvis suspicious for metastatic prostate cancer. No evidence of obstruction. CT scan of the head showed no acute intracranial abnormalities other than chronic changes. Plain x-rays of the hip and pelvis showed no acute fracture or dislocation. Thank you for allowing me to participate in this patient's care. I will follow the patient with you. Job ID: [id number] DocumentID: [id number] Dictated Date: 01/16/2023 15:48:16 Manager Photography Date: 01/16/2023 16:33:00 Dictated By: HOLLY PATRICK MD
[2023-01-16 19:31] VITALS: BP 113/56
[2023-01-16] MEDS: traZODone 50 MG (DESYREL) TAB PO SCH ×2 (20:28→23:56)
[2023-01-16] MEDS: APIXABAN 2.5 MG TABLET PO SCH (21:50)
[2023-01-16 23:35] VITALS: BP 143/75
[2023-01-17] MEDS: ACETAMINOPHEN 325 MG TABLET PO PRN (02:18)
[2023-01-17 04:45] VITALS: BP 101/57
[2023-01-17] MEDS: LEVOTHYROXINE 100 MCG TABLET PO SCH (05:33)
[2023-01-17 06:04] LABS: HEMATOCRIT 30 % (40-54); HEMOGLOBIN 9.6 g/dL (13.3-17.7); MEAN CORPUSCULAR HEMOGLOBIN 31 pg (25-34); MEAN CORPUSCULAR HGB CONC 32 g/dL (32-36); MEAN CORPUSCULAR VOLUME 98 fL (80-99); MEAN PLATELET VOLUME 10.3 fL (9.0-12.2); PLATELET COUNT 199 10^3/uL (130-400); WHITE BLOOD COUNT 6.7 10^3/uL (4.3-11.0)
[2023-01-17 06:22] LABS: ALBUMIN 3.3 GM/DL (3.2-4.5); BILIRUBIN,TOTAL 0.5 MG/DL (0.1-1.0); CALCIUM 8.5 MG/DL (8.5-10.1); CREATININE SERUM 1.94 MG/DL (0.60-1.30); POTASSIUM 4.9 MMOL/L (3.6-5.0); TOTAL PROTEIN 6.4 GM/DL (6.4-8.2)
[2023-01-17] MEDS: NS IV 1000 ML 1,000 ML IV SCH (06:59)
[2023-01-17 08:11] VITALS: BP 100/56
[2023-01-17] MEDS: SENNOSIDES 8.6 MG TABLET PO SCH ×2 (09:15→20:06)
[2023-01-17] MEDS: DOCUSATE SODIUM 100 MG CAPSULE PO SCH ×2 (09:15→20:07)
[2023-01-17] MEDS: AMIODARONE 200 MG TABLET PO SCH (09:15)
[2023-01-17] MEDS: APIXABAN 2.5 MG TABLET PO SCH ×2 (09:15→20:07)
[2023-01-17] MEDS: HYDROcodone/ACETAMINOPHEN 5 MG/325 MG TABLET PO PRN ×2 (10:16→20:07)
--- NOTE | 2023-01-17 10:46 | Progress Note - Hospitalist ---
DORIE ENRIQUEZ 01/17/23 1046: Subjective HPI/CC On Admission 87M with a PMH of prostate cancer and surgery 28 years ago, heart dz, on anticoagulants presents with progressive pain and weakness in his low back, thighs, and left wrist after slipping on a towel on Wednesday and falling backwards. He was brought into the ED yesterday by EMS, where a CXR, CT head, hip/abd X-ray, and abd/pelvis CT were done, which showed no acute changes or injury but likely metastatic prostate cancer in the spine and pelvis. The pt says he has had low back pain and constipation that has been noticeably worse the past 2 months. Subjective/Events-last exam Pt appears one day after imaging shows metastatic prostate cancer. Pt was sitting in his chair and not in any acute distress. Pt says he had a bad night of back and neck pain that prevented him from sleeping well. Pt has been having chronic constipation, worse the past two months, but had 2 BM last night that were non-bloody, non-black. Pt has some generalized abdominal discomfort that feels tense / rigid involuntarily. Pt was assessed by PT and walked 250 feet, was assessed by Dr. Huitron, and will be assessed by mental health social worker tomorrow and likely Dr. Mckenzie in radiation oncology. Review of Systems General: No Chills, No Appetite HEENT: No Head Aches, No Visual Changes Pulmonary: No Dyspnea, No Cough Cardiovascular: Edema (LE b/l); No: Chest Pain, Palpitations Gastrointestinal: Other (general abd discomfort); No: Nausea, Vomiting, Diarrhea, Constipation Genitourinary: No Dysuria, No Frequency; Incontinence Musculoskeletal: neck pain, back pain, hand pain (left) Neurological: Weakness; No: Numbness, Confusion Objective Exam Vital Signs Vital Signs Date Time Temp Pulse Resp B/P (MAP) Pulse Ox O2 Delivery O2 Flow Rate FiO2 01/17/23 08:11 36.0 62 16 100/56 (71) 99 Room Air 01/15/23 17:46 21 Capillary Refill : Less Than 3 Seconds General Appearance: No Apparent Distress, WD/WN HEENT: PERRL/EOMI; No Scleral Icterus (L), No Scleral Icterus (R) Neck: Normal Inspection, Non Tender; No JVD Respiratory: Lungs Clear, Normal Breath Sounds, No Accessory Muscle Use, No Respiratory Distress Cardiovascular: Regular Rate, Rhythm, No JVD, No Murmur Gastrointestinal: Non Tender; No Distended; Guarding (involuntary); No Rebound Extremity: Non Tender (b/l feet), Pedal Edema (more than yesterday) Neurologic/Psychiatric: Alert, Oriented x3 Skin: Warm/Dry, Ecchymosis (left hand) Results/Procedures Lab Laboratory Tests 01/17/23 05:29 Patient resulted labs reviewed. Assessment/Plan Assessment and Plan Assess & Plan/Chief Complaint Metastatic prostate cancer Continue following up with oncology Consult mental health social worker Consult Dr. Mckenzie PO Hydrocodone, advance to Fentanyl patch if necessary Acute on chronic renal insufficiency Improving Hold IV fluids (pedal edema) Anemia of chronic disease Monitor (Hgb 9.6 now) Mild hyperkalemia Resolved Chronic Constipation Continue Docusate and Senna Fall injury / weakness PT Anxiety / depression Pt refused tx DVT prophylaxis Continue Eliquis Continue normal diet NICKO MEDRANO MD 01/17/23 1226: Assessment/Plan Assessment and Plan Assess & Plan/Chief Complaint Patient reports having a rough night due to pain. Complains mostly of back pain and was unable to sleep. This morning he is sitting up in bed and seems to be doing better. Will increase pain regimen to hydrocodone and consider a fentanyl patch if uncontrolled with that given his widely metastatic disease. We will consult radiation oncology tomorrow for palliative radiation. Discussed with Dr. Smith who will arrange further scans. Discussed with family at bedside regarding need for placement and that social work or see him tomorrow to help with this. Supervisory-Addendum Brief Verification & Attestation Participated in pt care: history, MDM, physical Personally performed: exam, history, MDM, supervision of care Care discussed with: Medical Student Procedures: n/a Results interpretation: Verified all documentation Verification and Attestation of Medical Student E/M Service A medical student performed and documented this service in my presence. I reviewed and verified all information documented by the medical student and made modifications to such information, when appropriate. I personally performed the physical exam and medical decision making. Nicko Medrano, Jan 17, 2023,12:22 DORIE ENRIQUEZ Jan 17, 2023 10:46 NICKO MEDRANO MD Jan 17, 2023 12:26
[2023-01-17 12:10] VITALS: BP 102/58
[2023-01-17 15:58] VITALS: BP 120/56
[2023-01-17 19:18] VITALS: BP 125/60
[2023-01-17] MEDS: traZODone 50 MG (DESYREL) TAB PO SCH (20:07)
[2023-01-17 23:54] VITALS: BP 148/70
[2023-01-18 04:27] VITALS: BP 117/58
[2023-01-18] MEDS: LEVOTHYROXINE 100 MCG TABLET PO SCH (04:33)
[2023-01-18 05:55] LABS: HEMATOCRIT 30 % (40-54); HEMOGLOBIN 9.3 g/dL (13.3-17.7); MEAN CORPUSCULAR HEMOGLOBIN 31 pg (25-34); MEAN CORPUSCULAR HGB CONC 31 g/dL (32-36); MEAN CORPUSCULAR VOLUME 99 fL (80-99); MEAN PLATELET VOLUME 10.1 fL (9.0-12.2); PLATELET COUNT 194 10^3/uL (130-400); WHITE BLOOD COUNT 7.2 10^3/uL (4.3-11.0)
[2023-01-18 06:13] LABS: ALBUMIN 3.2 GM/DL (3.2-4.5); BILIRUBIN,TOTAL 0.7 MG/DL (0.1-1.0); CALCIUM 8.7 MG/DL (8.5-10.1); CREATININE SERUM 1.68 MG/DL (0.60-1.30); POTASSIUM 5.4 MMOL/L (3.6-5.0); TOTAL PROTEIN 6.3 GM/DL (6.4-8.2)
[2023-01-18 07:42] VITALS: BP 110/55
[2023-01-18] MEDS: SENNOSIDES 8.6 MG TABLET PO SCH ×2 (08:17→20:25)
[2023-01-18] MEDS: AMIODARONE 200 MG TABLET PO SCH (08:17)
[2023-01-18] MEDS: APIXABAN 2.5 MG TABLET PO SCH ×2 (08:17→20:25)
[2023-01-18] MEDS: HYDROcodone/ACETAMINOPHEN 5 MG/325 MG TABLET PO PRN ×3 (08:17→20:25)
[2023-01-18] MEDS: DOCUSATE SODIUM 100 MG CAPSULE PO SCH ×2 (08:17→20:25)
--- NOTE | 2023-01-18 09:38 | Progress Note ---
Subjective Date Seen by a Provider: Jan 18, 2023 Time Seen by a Provider: 10:00 Subjective/Events-last exam Doing better Pain controlled SW to arrange NH placement Bowels moving Review of Systems General: Fatigue, Malaise Objective Exam Last Set of Vital Signs Vital Signs Date Time Temp Pulse Resp B/P (MAP) Pulse Ox O2 Delivery O2 Flow Rate FiO2 01/18/23 08:05 Room Air 01/18/23 07:42 36.6 63 18 110/55 (73) 97 01/15/23 17:46 21 Capillary Refill : Less Than 3 Seconds I&O Intake and Output 01/18/23 00:00 Intake Total 1880 ml Balance 1880 ml Intake Oral 1530 ml IV Total 350 ml # Voids 7 # Bowel Movements 2 General: Alert, Oriented X3, Cooperative, No Acute Distress Lungs: Clear to Auscultation, Normal Air Movement Psych/Mental Status: Mental Status NL, Mood NL Results Lab Laboratory Tests 01/18/23 05:18: White Blood Count 7.2, Red Blood Count 2.98L, Hemoglobin 9.3L, Hematocrit 30L, Mean Corpuscular Volume 99, Mean Corpuscular Hemoglobin 31, Mean Corpuscular Hemoglobin Concent 31L, Red Cell Distribution Width 14.1, Platelet Count 194, Mean Platelet Volume 10.1, Sodium Level 135, Potassium Level 5.4H, Chloride Level 107, Carbon Dioxide Level 20L, Anion Gap 8, Blood Urea Nitrogen 34H, Creatinine 1.68H, Estimat Glomerular Filtration Rate 39, BUN/Creatinine Ratio 20, Glucose Level 104, Calcium Level 8.7, Corrected Calcium 9.3, Total Bilirubin 0.7, Aspartate Amino Transf (AST/SGOT) 33, Alanine Aminotransferase (ALT/SGPT) 50, Alkaline Phosphatase 168H, Total Protein 6.3L, Albumin 3.2 Assessment/Plan Assessment/Plan Assess & Plan/Chief Complaint Metastatic prostate cancer Continue following up with oncology Consult pediatric social worker Consult Dr. Mckenzie PO Hydrocodone, advance to Fentanyl patch if necessary Acute on chronic renal insufficiency Improving Hold IV fluids (pedal edema) Anemia of chronic disease Monitor (Hgb 9.6 now) Mild hyperkalemia Resolved Chronic Constipation Continue Docusate and Senna Fall injury / weakness PT Anxiety / depression Pt refused tx DVT prophylaxis Continue Eliquis Continue normal diet RUTH JASON DO Jan 18, 2023 09:38
--- NOTE | 2023-01-18 11:32 | Physical Therapy Daily Note ---
PT Daily Note-Current Subjective Patient agrees to therapy. He reports he is going the NH tomorrow. Pain Section J - Health Conditions 1. Rarely or not at all 2. Occasionally 3. Frequently 4. Almost constantly 8. Unable to answer Pain Effect on Sleep: 1 Pain Interference with Therapy: 1 Pain Interference w/Day-to-Day: 1 Mental Status Patient Orientation: Normal For Age Transfers SCALE: Activities may be completed with or without assistive devices. 1-Yxrldlejkz-qwemkpv completes the activity by him/herself with no assistance from a helper. 5-Set-up or Clean-up Assistance-helper sets up or cleans up; patient completes activity. [place] assists only prior to or following the activity. 4-Supervision or Touching Assistance-helper provides verbal cues and/or touching/steadying and/or contact guard assistance as patient completes activity. Assistance may be provided throughout the activity or intermittently. 3-Partial/Moderate Assistance-helper does LESS THAN HALF the effort. [place] lifts, holds or supports trunk or limbs, but provides less than half the effort. 2-Substantial/Maximal Assistance-helper does MORE THAN HALF the effort. [place] lifts or holds trunk or limbs and provides more than half the effort. 9-Wldsztqim-pkxtxu does ALL the effort. Patient does none of the effort to complete the activity. Or, the assistance of 2 or more helpers is required for the patient to complete the activity. If activity was not attempted, code reason: 7-Patient Refused. 9-Not Applicable-not attempted and the patient did not perform the activity before the current illness, exacerbation or injury. 10-Not Attempted due to Environmental Limitations-(lack of equipment, weather restraints, etc.). 88-Not Attempted due to Medical Conditions or Safety Concerns. Sit to Stand (QC): 4 Chair/Tmt-gd-Jsmgg Xfer(QC): 4 Gait Training Distance: 275' Walk 10 feet (QC): 4 Walk 50 ft with 2 Turns(QC): 4 Walk 150 ft (QC): 4 Gait Assistive Device: FWW trunk flexed posture/extended UE's/functional gait sequence Assessment Patient tolerated treatment well and remains up in recliner with needs met. Patient incontinent urine, donned and doffed brief with set up. PT Alf Goals Alf Goals PT Plugger Goals Time Frame: Jan 23, 2023 Roll Left & Right (QC): 6 Sit to Lying (QC): 6 Lying-Sitting on Side/Bed(QC): 6 Sit to Stand (QC): 6 Chair/Wky-wh-Aronj Xfer(QC): 6 Toilet Transfer (QC): 6 Walk 10 feet (QC): 5 Walk 50ft with 2 Turns (QC): 5 Walk 150 ft (QC): 5 PT Plan Treatment/Plan Treatment Plan: Continue Plan of Care Treatment Plan: Education, Functional Activity [place], Functional Strength, Gait, Safety, Therapeutic Exercise, Transfers Treatment Duration: Jan 23, 2023 Frequency: 5 times per week Estimated Hrs Per Day: .25 hour per day Patient and/or Family Agrees t: Yes Time Time In: 1105 Time Out: 1115 DATE: Jan 18, 2023 Total Billed Treatment Time: 10 Total Billed Treatment 1 visit FA 10 min JENNIFER GARZA PT Jan 18, 2023 11:32
[2023-01-18 11:35] VITALS: BP 105/65
--- NOTE | 2023-01-18 11:51 | Occupational Therapy Eval ---
OT Evaluation-General/PLF Medical Diagnosis Admission Date Jan 15, 2023 at 16:59 Medical Diagnosis: prostate cancer with bone mets Onset Date: Jan 15, 2023 Therapy Diagnosis Therapy Diagnosis: WEAKNESS, LOW ENDURANCE Height/Weight Height (Feet): 5 Height (Inches): 7.00 Weight (Pounds): 160 Weight (Ounces): 0.0 Precautions Precautions/Isolations: Fall Prevention, Standard Precautions Weight Bear Status Weight Bearing Restriction: Full Weight Bearing Referral Physician: Mitchell Referral Reason: Self Care, Evaluation/Treatment Medical History Pertinent Medical History: Atrial Fib, Hypothroidism, Smoking Reviewed History: Yes Social History Home: Single Level Current Living Status: Children Entry Into Home: Stairs With Railing Steps Into Home: 2 ADL-Prior Level of Function SCALE: Activities may be completed with or without assistive devices. 0-Adjwdyvuie-zmagako completes the activity by him/herself with no assistance from a helper. 5-Set-up or Clean-up Assistance-helper sets up or cleans up; patient completes activity. Derby assists only prior to or following the activity. 4-Supervision or Touching Assistance-helper provides verbal cues and/or touching/steadying and/or contact guard assistance as patient completes activity. Assistance may be provided throughout the activity or intermittently. 3-Partial/Moderate Assistance-helper does LESS THAN HALF the effort. Derby lifts, holds or supports trunk or limbs, but provides less than half the effort. 2-Substantial/Maximal Assistance-helper does MORE THAN HALF the effort. Derby lifts or holds trunk or limbs and provides more than half the effort. 8-Djethauxu-cxivei does ALL the effort. Patient does none of the effort to complete the activity. Or, the assistance of 2 or more helpers is required for the patient to complete the activity. If activity was not attempted, code reason: 7-Patient Refused. 9-Not Applicable-not attempted and the patient did not perform the activity before the current illness, exacerbation or injury. 10-Not Attempted due to Environmental Limitations-(lack of equipment, weather restraints, etc.). 88-Not Attempted due to Medical Conditions or Safety Concerns. Self Care: Independent Functional Cognition: Independent OT Current Status Subjective AGREEABLE TO OT Pain Location Body Site: Back Mental Status/Objective Patient Orientation: Person, Place, Time, Situation Current Hand Dominance: Right Upper Extremity ROM BUE ROM WFLS Upper Extremity Coordination WFLS Upper Extremity Sensation INTACT Upper Extremity Strength 4/5 GROSSLY ADL-Treatment Eating (QC): 6 Oral Hygiene (QC): 5 (SITTING) Shower/Bathe Self (QC): 7 Upper Body Dressing (QC): 5 Lower Body Dressing (QC): 5 On/Off Footwear (QC): 5 Toileting Hygiene (QC): 5 Education OT Patient Education: Correct positioning, Energy conservation, Modified ADL techniques, Progress toward Goal/Update tx plan, Purpose of tx/functional activities, Reviewed precautions, Rehab process, Safety issues, Transfer techniques Teaching Recipient: Patient Teaching Methods: Demonstration, Discussion Response to Teaching: Return Demonstration OT Specimen Collector Goals Specimen Collector Goals 1=Demonstrate adherence to instructed precautions during ADL tasks. 2=Patient will verbalize/demonstrate understanding of assistive devices/modifications for ADL. 3=Patient will improve strength/tolerance for activity to enable patient to perform ADL's. OT Education/Plan Problem List/Assessment Assessment: No Skilled OT Needs ID'd Discharge Recommendations Plan/Recommendations: Discharge/Goals Met Comment LOW ENDURANCE. Treatment Plan/Plan of Care Treatment,Training & Education: Yes Patient would benefit from OT for education, treatment and training to promote independence in ADL's, mobility, safety and/or upper extremity function for ADL's. Plan of Care: Functional Mobility, Group Exercise/Act as Ind, UE Funct Exercise/Act Treatment Duration: Jan 18, 2023 Frequency: 1 time per week Estimated Hrs Per Day: .25 hour per day Agreement: Yes Rehab Potential: Good Time Start Time: 11:11 Stop Time: 11:23 DATE: Jan 18, 2023 Total Time Billed (hr/min): 13 Billed Treatment Time EVDaniel 13 MIN, JORDAN ZAVALA OT Jan 18, 2023 11:51
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
[2023-01-18 16:46] VITALS: BP 103/56
[2023-01-18 20:20] VITALS: BP 129/58
[2023-01-18] MEDS: traZODone 50 MG (DESYREL) TAB PO SCH (20:25)
[2023-01-19 00:46] VITALS: BP 123/56
[2023-01-19] MEDS: HYDROcodone/ACETAMINOPHEN 5 MG/325 MG TABLET PO PRN ×3 (03:04→12:38)
[2023-01-19 03:05] VITALS: BP 121/71
[2023-01-19 05:30] LABS: HEMATOCRIT 29 % (40-54); HEMOGLOBIN 9.2 g/dL (13.3-17.7); MEAN CORPUSCULAR HEMOGLOBIN 31 pg (25-34); MEAN CORPUSCULAR HGB CONC 32 g/dL (32-36); MEAN CORPUSCULAR VOLUME 99 fL (80-99); MEAN PLATELET VOLUME 9.8 fL (9.0-12.2); PLATELET COUNT 198 10^3/uL (130-400); WHITE BLOOD COUNT 6.2 10^3/uL (4.3-11.0)
[2023-01-19] MEDS: LEVOTHYROXINE 100 MCG TABLET PO SCH (05:51)
[2023-01-19 05:57] LABS: ALBUMIN 3.1 GM/DL (3.2-4.5); BILIRUBIN,TOTAL 0.6 MG/DL (0.1-1.0); CALCIUM 8.6 MG/DL (8.5-10.1); CREATININE SERUM 1.55 MG/DL (0.60-1.30); TOTAL PROTEIN 6.4 GM/DL (6.4-8.2)
[2023-01-19 07:45] VITALS: BP 123/72
[2023-01-19] MEDS: SENNOSIDES 8.6 MG TABLET PO SCH (08:52)
[2023-01-19] MEDS: APIXABAN 2.5 MG TABLET PO SCH (08:52)
[2023-01-19] MEDS: AMIODARONE 200 MG TABLET PO SCH (08:53)
[2023-01-19] MEDS: DOCUSATE SODIUM 100 MG CAPSULE PO SCH (08:53)
[2023-01-19] MEDS ORDERED: LEVO100T PO (11:43)
[2023-01-19] MEDS ORDERED: AMIO200T65 PO (11:43)
[2023-01-19] MEDS ORDERED: METO50TA7 PO (11:43)
[2023-01-19] MEDS ORDERED: ACET-2267 PO (11:43)
[2023-01-19] MEDS ORDERED: TRZ50T PO (11:43)
[2023-01-19] MEDS ORDERED: ATOR40TA PO (11:44)
[2023-01-19] MEDS ORDERED: DOCU100C37 PO (11:44)
[2023-01-19] MEDS ORDERED: TRM50T PO (11:44)
[2023-01-19] MEDS ORDERED: ACHD5005 PO (11:44)
[2023-01-19] MEDS ORDERED: ONDA4TAB11 PO (11:44)
[2023-01-19] MEDS ORDERED: APIX2.5T PO (11:44)
--- NOTE | 2023-01-19 11:45 | Discharge Inst-Skilled Nursing ---
Discharge Inst-Skilled NF Reconcile Patient Problems Problems Reviewed?: Yes Chief Complaint 87M with a PMH of prostate cancer and surgery 28 years ago, heart dz, on anticoagulants presents with progressive pain and weakness in his low back, thighs, and left wrist after slipping on a towel on Wednesday and falling wilder kwards. He was brought into the ED yesterday by EMS, where a CXR, CT head, hip/abd X-ray, and abd/pelvis CT were done, which showed no acute changes or injury but likely metastatic prostate cancer in the spine and pelvis. The pt says he has had low back pain and constipation that has been noticeably worse the past 2 months. Patient Instructions Patient Problems: Prostate cancer with mets Consult/Follow Up/Orders Follow Up Appt.: Dr Tomy Corbin Skilled NF Admit to: Via [facility] Certification ([facility]) I certify that SNF services are required to be given on an inpatient basis because of the above named patient's need for residential care on a continuing basis for the conditions(s) for which he/she was receiving inpatient hospital services prior to his/her transfer to the [facility]. [facility] Facility Order: Nursing Services, [employer]-Evaluate & Treat, Physical Therapy-Evaluate & Treat Oxygen Delivery Method: Room Air Discharge Diet: No Restrictions Daily Activity as Tolerated: Yes Resuscitation Status: Do Not Resuscitate New & Resume Previous Orders New Medications: Apixaban (Eliquis) 2.5 Mg Tablet 2.5 MG PO BID, #60 TAB Atorvastatin Calcium (Lipitor) 40 Mg Tablet 40 MG PO DAILY, #30 TAB Docusate Sodium (Docusate Sodium) 100 Mg Capsule 100 MG PO BID, #60 CAP Hydrocodone/Acetaminophen (Hydrocodone-Acetamin 5-325 mg) 5 Mg-325 Mg Tablet 1 EA PO Q4H PRN for PAIN-SEVERE (8-10), #30 TAB Ondansetron (Ondansetron Odt) 4 Mg Tab.rapdis 4 MG PO Q6H PRN for NAUSEA/VOMITING-1ST LINE, #10 EACH Tramadol HCl (Tramadol HCl) 50 Mg Tablet 50 MG PO TID PRN for PAIN-MODERATE (5-7), #30 TAB Continued Medications: Acetaminophen (Tylenol Extra Strength) 500 Mg Tablet 500 MG PO Q6H PRN for PAIN-MILD (1-4), #30 TAB (This prescription has been renew ed) Amiodarone HCl (Amiodarone HCl) 200 Mg Tablet 200 MG PO DAILY, #30 TAB (This prescription has been renewed) Levothyroxine Sodium (Synthroid) 100 Mcg Tablet 100 MCG PO DAILY, #30 TAB (This prescription has been renewed) Metoprolol Succinate (Metoprolol Succinate) 50 Mg Tab.er.24h 50 MG PO DAILY, #30 TAB (This prescription has been renewed) Trazodone HCl (Trazodone HCl) 50 Mg Tablet 50 MG PO HS, #30 TAB (This prescription has been renewed) Discontinued Medications: Apixaban (Eliquis) 5 Mg Tablet 5 MG PO BID, TAB Furosemide (Furosemide) 40 Mg Tablet 40 MG PO DAILY, TAB Lisinopril (Lisinopril) 10 Mg Tablet 10 MG PO HS, TAB Spironolactone (Spironolactone) 25 Mg Tablet 25 MG PO DAILY, TAB Trang Hayes Jan 19, 2023 11:45 TRANG HAYES DO Jan 19, 2023 11:45
--- NOTE | 2023-01-19 11:46 | Discharge Summary ---
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 Mckenzie PO Hydrocodone, advance to Fentanyl patch if necessary Acute on chronic renal insufficiency Improving Hold IV fluids (pedal edema) Anemia of chronic disease Monitor (Hgb 9.6 now) Mild hyperkalemia Resolved Chronic Constipation Continue Docusate and Senna Fall injury / weakness PT Anxiety / depression Pt refused tx DVT prophylaxis Continue Eliquis Continue normal diet Discharge Summary Discharge Physical Examination Allergies: Coded Allergies: No Known Drug Allergies (Unverified , 04/25/15) Vitals & I&Os Vital Signs Date Time Temp Pulse Resp B/P (MAP) Pulse Ox O2 Delivery O2 Flow Rate FiO2 01/19/23 12:40 36.3 66 16 134/75 99 Room Air 01/15/23 17:46 21 General Appearance: Alert, Oriented X3, Cooperative Respiratory: Clear to Auscultation Cardiovascular: Regular Rate Psych/Mental Status: Mental Status NL Hospital Course Was the Problem List Reviewed?: Yes Uneventful course after he was admitted for severe pain and could not ambulate. Prostate cancer with mets noted on imaging scans. Dr Huitron and Dr Mckenzie consulted and NH admit for 3 weeks to increase strength and then would be a candidate for radiation treatment. Labs (last 24 hrs) Laboratory Tests 01/15/23 12:38: White Blood Count 6.3, Red Blood Count 3.30L, Hemoglobin 10.3L, Hematocrit 33L, Mean Corpuscular Volume 99, Mean Corpuscular Hemoglobin 31, Mean Corpuscular Hemoglobin Concent 32, Red Cell Distribution Width 13.7, Platelet Count 213, Mean Platelet Volume 10.3, Immature Granulocyte % (Auto) 1, Neutrophils (%) (Auto) 71, Lymphocytes (%) (Auto) 16, Monocytes (%) (Auto) 11, Eosinophils (%) (Auto) 2, Basophils (%) (Auto) 0, Neutrophils # (Auto) 4.5, Lymphocytes # (Auto) 1.0, Monocytes # (Auto) 0.7, Eosinophils # (Auto) 0.1, Basophils # (Auto) 0.0, Immature Granulocyte # (Auto) 0.0, Sodium Level 136, Potassium Level 5.0, Chloride Level 102, Carbon Dioxide Level 20L, Anion Gap 14, Blood Urea Nitrogen 74H, Creatinine 3.38H, Estimat Glomerular Filtration Rate 17, BUN/Creatinine Ratio 22, Glucose Level 116H, Calcium Level 8.7, Corrected Calcium 9.0, Magnesium Level 2.9H, Total Bilirubin 0.6, Aspartate Amino Transf (AST/SGOT) 66H , Alanine Aminotransferase (ALT/SGPT) 64H, Alkaline Phosphatase 178H, Troponin I < 0.028, B-Type Natriuretic Peptide 145.5H, Total Protein 7.3, Albumin 3.6, TSH Shock Testing 3.23 01/15/23 13:32: Urine Color YELLOW, Urine Clarity CLEAR, Urine pH 5.5, Urine Specific [place] 1.010L, Urine Protein NEGATIVE, Urine Glucose (UA) NEGATIVE, Urine Ketones NEGATIVE, Urine Nitrite NEGATIVE, Urine Bilirubin NEGATIVE, Urine Urobilinogen 0.2, Urine Leukocyte Esterase NEGATIVE, Urine RBC (Auto) TRACEH, Urine RBC NONE, Urine WBC NONE, Urine Crystals NONE, Urine Bacteria NEGATIVE, Urine Casts NONE, Urine White Blood Cell Casts , Urine Mucus NEGATIVE, Urine Culture Indicated NO 01/16/23 05:13: White Blood Count 6.8, Red Blood Count 3.39L, Hemoglobin 10.8L, Hematocrit 33L, Mean Corpuscular Volume 98, Mean Corpuscular Hemoglobin 32, Mean Corpuscular Hemoglobin Concent 33, Red Cell Distribution Width 13.7, Platelet Count 232, Mean Platelet Volume 10.1, Sodium Level 141, Potassium Level 5.2H, Chloride Level 106, Carbon Dioxide Level 21, Anion Gap 14, Blood Urea Nitrogen 67H, Creatinine 2.98#H, Estimat Glomerular Filtration Rate 20, BUN/Creatinine Ratio 22, Glucose Level 125H, Calcium Level 8.8, Corrected Calcium 9.0, Total Bilirubin 0.6, Aspartate Amino Transf (AST/SGOT) 57H, Alanine Aminotransferase (ALT/SGPT) 65H, Alkaline Phosphatase 189H, Total Protein 7.3, Albumin 3.7, Phosphorus Level 4.3 01/17/23 05:29: White Blood Count 6.7, Red Blood Count 3.06L, Hemoglobin 9.6L, Hematocrit 30L, Mean Corpuscular Volume 98, Mean Corpuscular Hemoglobin 31, Mean Corpuscular Hemoglobin Concent 32, Red Cell Distribution Width 13.8, Platelet Count 199, Me an Platelet Volume 10.3, Sodium Level 140, Potassium Level 4.9, Chloride Level 110H, Carbon Dioxide Level 19L, Anion Gap 11, Blood Urea Nitrogen 47H, Creatinine 1.94H, Estimat Glomerular Filtration Rate 33, BUN/Creatinine Ratio 24, Glucose Level 112H, Calcium Level 8.5, Corrected Calcium 9.1, Total Bilirubin 0.5, Aspartate Amino Transf (AST/SGOT) 41H, Alanine Aminotransferase (ALT/SGPT) 54, Alkaline Phosphatase 166H, Total Protein 6.4, Albumin 3.3 01/18/23 05:18: White Blood Count 7.2, Red Blood Count 2.98L, Hemoglobin 9.3L, Hematocrit 30L, Mean Corpuscular Volume 99, Mean Corpuscular Hemoglobin 31, Mean Corpuscular Hemoglobin Concent 31L, Red Cell Distribution Width 14.1, Platelet Count 194, Mean Platelet Volume 10.1, Sodium Level 135, Potassium Level 5.4H, Chloride Level 107, Carbon Dioxide Level 20L, Anion Gap 8, Blood Urea Nitrogen 34H, Creatinine 1.68H, Estimat Glomerular Filtration Rate 39, BUN/Creatinine Ratio 20, Glucose Level 104, Calcium Level 8.7, Corrected Calcium 9.3, Total Bilirubin 0.7, Aspartate Amino Transf (AST/SGOT) 33, Alanine Aminotransferase (ALT/SGPT) 50, Alkaline Phosphatase 168H, Total Protein 6.3L, Albumin 3.2, Prostate Specific Antigen 7.25H 01/19/23 05:13: White Blood Count 6.2, Red Blood Count 2.96L, Hemoglobin 9.2L, Hematocrit 29L, Mean Corpuscular Volume 99, Mean Corpuscular Hemoglobin 31, Mean Corpuscular Hemoglobin Concent 32, Red Cell Distribution Width 14.0, Platelet Count 198, Mean Platelet Volume 9.8, Sodium Level 136, Potassium Level 5.0, Chloride Level 108H, Carbon Dioxide Level 21, Anion Gap 7, Blood Urea Nitrogen 32H, Creatinine 1.55H, Estimat Glomerular Filtration Rate 43, BUN/Creatinine Ratio 21, Glucose Level 105, Calcium Level 8.6, Corrected Calcium 9.3, Total Bilirubin 0.6, Aspartate Amino Transf (AST/SGOT) 31, Alanine Aminotransferase (ALT/SGPT) 46, Alkaline Phosphatase 159H, Total Protein 6.4, Albumin 3.1L Pending Labs Laboratory Tests 01/15/23 12:38: White Blood Count 6.3, Red Blood Count 3.30, Hemoglobin 10.3, Hematocrit 33, Mean Corpuscular Volume 99, Mean Corpuscular Hemoglobin 31, Mean Corpuscular Hemoglobin Concent 32, Red Cell Distribution Width 13.7, Platelet Count 213, Mean Platelet Volume 10.3, Immature Granulocyte % (Auto) 1, Neutrophils (%) (Auto) 71, Lymphocytes (%) (Auto) 16, Monocytes (%) (Auto) 11, Eosinophils (%) (Auto) 2, Basophils (%) (Auto) 0, Neutrophils # (Auto) 4.5, Lymphocytes # (Auto) 1.0, Monocytes # (Auto) 0.7, Eosinophils # (Auto) 0.1, Basophils # (Auto) 0.0, Immature Granulocyte # (Auto) 0.0, Sodium Level 136, Potassium Level 5.0, Chloride Level 102, Carbon Dioxide Level 20, Anion Gap 14, Blood Urea Nitrogen 74, Creatinine 3.38, Estimat Glomerular Filtration Rate 17, BUN/Creatinine Ratio 22, Glucose Level 116, Calcium Level 8.7, Corrected Calcium 9.0, Magnesium Level 2.9, Total Bilirubin 0.6, Aspartate Amino Transf (AST/SGOT) 66, Alanine Aminotransferase (ALT/SGPT) 64, Alkaline Phosphatase 178, Troponin I < 0.028, B- Type Natriuretic Peptide 145.5, Total Protein 7.3, Albumin 3.6, TSH Shock Testing 3.23 01/15/23 13:32: Urine Color YELLOW, Urine Clarity CLEAR, Urine pH 5.5, Urine Specific [place] 1.010, Urine Protein NEGATIVE, Urine Glucose (UA) NEGATIVE, Urine Ketones NEG ATIVE, Urine Nitrite NEGATIVE, Urine Bilirubin NEGATIVE, Urine Urobilinogen 0.2, Urine Leukocyte Esterase NEGATIVE, Urine RBC (Auto) TRACE, Urine RBC NONE, Urine WBC NONE, Urine Crystals NONE, Urine Bacteria NEGATIVE, Urine Casts NONE, Urine White Blood Cell Casts , Urine Mucus NEGATIVE, Urine Culture Indicated NO 01/16/23 05:13: White Blood Count 6.8, Red Blood Count 3.39, Hemoglobin 10.8, Hematocrit 33, Mean Corpuscular Volume 98, Mean Corpuscular Hemoglobin 32, Mean Corpuscular Hemoglobin Concent 33, Red Cell Distribution Width 13.7, Platelet Count 232, Mean Platelet Volume 10.1, Sodium Level 141, Potassium Level 5.2, Chloride Level 106, Carbon Dioxide Level 21, Anion Gap 14, Blood Urea Nitrogen 67, Creatinine 2.98, Estimat Glomerular Filtration Rate 20, BUN/Creatinine Ratio 22, Glucose Level 125, Calcium Level 8.8, Corrected Calcium 9.0, Total Bilirubin 0.6, Aspartate Amino Transf (AST/SGOT) 57, Alanine Aminotransferase (ALT/SGPT) 65, Alkaline Phosphatase 189, Total Protein 7.3, Albumin 3.7, Phosphorus Level 4.3 01/17/23 05:29: White Blood Count 6.7, Red Blood Count 3.06, Hemoglobin 9.6, Hematocrit 30, Mean Corpuscular Volume 98, Mean Corpuscular Hemoglobin 31, Mean Corpuscular Hemoglobin Concent 32, Red Cell Distribution Width 13.8, Platelet Count 199, Mean Platelet Volume 10.3, Sodium Level 140, Potassium Level 4.9, Chloride Level 110, Carbon Dioxide Level 19, Anion Gap 11, Blood Urea Nitrogen 47, Creatinine 1.94, Estimat Glomerular Filtration Rate 33, BUN/Creatinine Ratio 24, Glucose Level 112, Calcium Level 8.5, Corrected Calcium 9.1, Total Bilirubin 0.5, Aspartate Amino Transf (AST/SGOT) 41, Alanine Aminotransferase (ALT/SGPT) 54, Alkaline Phosphatase 166, Total Protein 6.4, Albumin 3.3 01/18/23 05:18: White Blood Count 7.2, Red Blood Count 2.98, Hemoglobin 9.3, Hematocrit 30, Mean Corpuscular Volume 99, Mean Corpuscular Hemoglobin 31, Mean Corpuscular Hemoglobin Concent 31, Red Cell Distribution Width 14.1, Platelet Count 194, Mean Platelet Volume 10.1, Sodium Level 135, Potassium Level 5.4, Chloride Level 107, Carbon Dioxide Level 20, Anion Gap 8, Blood Urea Nitrogen 34, Creatinine 1.68, Estimat Glomerular Filtration Rate 39, BUN/Creatinine Ratio 20, Glucose Level 104, Calcium Level 8.7, Corrected Calcium 9.3, Total Bilirubin 0.7, Aspartate Amino Transf (AST/SGOT) 33, Alanine Aminotransferase (ALT/SGPT) 50, Alkaline Phosphatase 168, Total Protein 6.3, Albumin 3.2, Prostate Specific Antigen 7.25 01/19/23 05:13: White Blood Count 6.2, Red Blood Count 2.96, Hemoglobin 9.2, Hematocrit 29, Mean Corpuscular Volume 99, Mean Corpuscular Hemoglobin 31, Mean Corpuscular Hemoglobin Concent 32, Red Cell Distribution Width 14.0, Platelet Count 198, Mean Platelet Volume 9.8, Sodium Level 136, Potassium Level 5.0, Chloride Level 108, Carbon Dioxide Level 21, Anion Gap 7, Blood Urea Nitrogen 32, Creatinine 1.55, Estimat Glomerular Filtration Rate 43, BUN/Creatinine Ratio 21, Glucose Level 105, Calcium Level 8.6, Corrected Calcium 9.3, Total Bilirubin 0.6, Aspartate Amino Transf (AST/SGOT) 31, Alanine Aminotransferase (ALT/SGPT) 46, Alkaline Phosphatase 159, Total Protein 6.4, Albumin 3.1 Discharge Home Medications: Active Scripts Active Ondansetron Odt (Ondansetron) 4 Mg Tab.rapdis 4 Mg PO Q6H PRN Docusate Sodium 100 Mg Capsule 100 Mg PO BID Tramadol HCl 50 Mg Tablet 50 Mg PO TID PRN Hydrocodone-Acetamin 5-325 mg (Hydrocodone/Acetaminophen) 5 Mg-325 Mg Tablet 1 Ea PO Q4H PRN Lipitor (Atorvastatin Calcium) 40 Mg Tablet 40 Mg PO DAILY Eliquis (Apixaban) 2.5 Mg Tablet 2.5 Mg PO BID Metoprolol Succinate 50 Mg Tab.er.24h 50 Mg PO DAILY Amiodarone HCl 200 Mg Tablet 200 Mg PO DAILY Synthroid (Levothyroxine Sodium) 100 Mcg Tablet 100 Mcg PO DAILY Trazodone HCl 50 Mg Tablet 50 Mg PO HS Tylenol Extra Strength (Acetaminophen) 500 Mg Tablet 500 Mg PO Q6H PRN Instructions to patient/family Please see electronic discharge instructions given to patient. RUTH JASON DO Jan 19, 2023 11:46
[2023-01-19 12:10] VITALS: BP 134/75
[2023-01-19 12:40] VITALS: BP 134/75
--- NOTE | 2023-01-19 13:10 | Occupational Ther Daily Note ---
OT Current Status-Daily Note Subjective Agreeable to therapy, reports being discharged Mental Status/Objective Patient Orientation: Person, Time, Situation ADL-Treatment Dressed in own clothing on arrival, ambulation to bathroom for grooming oral care Therapy Code Descriptions/Definitions Functional [place] Measure: 0=Not Assessed/NA 4=Minimal Assistance 1=Total Assistance 5=Supervision or Setup 2=Maximal Assistance 6=Modified [place] 3=Moderate Assistance 7=Complete IndependenceSCALE: Activities may be completed with or without assistive devices. 7-Axjgllsjfv-gnkyigi completes the activity by him/herself with no assistance from a helper. 5-Set-up or Clean-up Assistance-helper sets up or cleans up; patient completes activity. [place] assists only prior to or following the activity. 4-Supervision or Touching Assistance-helper provides verbal cues and/or touching/steadying and/or contact guard assistance as patient completes activity. Assistance may be provided throughout the activity or intermittently. 3-Partial/Moderate Assistance-helper does LESS THAN HALF the effort. Medon lifts, holds or supports trunk or limbs, but provides less than half the effort. 2-Substantial/Maximal Assistance-helper does MORE THAN HALF the effort. Medon lifts or holds trunk or limbs and provides more than half the effort. 0-Yyeuxdlvx-cmippe does ALL the effort. Patient does none of the effort to complete the activity. Or, the assistance of 2 or more helpers is required for the patient to complete the activity. If activity was not attempted, code reason: 7-Patient Refused. 9-Not Applicable-not attempted and the patient did not perform the activity before the current illness, exacerbation or injury. 10-Not Attempted due to Environmental Limitations-(lack of equipment, weather restraints, etc.). 88-Not Attempted due to Medical Conditions or Safety Concerns. Eating (QC): 6 Oral Hygiene (QC): 6 Education OT Patient Education: Correct positioning, Energy conservation, Modified ADL techniques, Progress toward Goal/Update tx plan, Purpose of tx/functional activities, Reviewed precautions, Rehab process, Safety issues, Transfer t echniques Teaching Recipient: Patient Teaching Methods: Discussion Response to Teaching: Verbalize Understanding, Return Demonstration OT Correction Goals Correction Goals 1=Demonstrate adherence to instructed precautions during ADL tasks. 2=Patient will verbalize/demonstrate understanding of assistive devices/modifications for ADL. 3=Patient will improve strength/tolerance for activity to enable patient to per form ADL's. OT Education/Plan Problem List/Assessment Assessment: Impaired Self-Care Skills Discharge Recommendations Plan/Recommendations: Discontinue OT (going home) Treatment Plan/Plan of Care Patient would benefit from OT for education, treatment and training to promote independence in ADL's, mobility, safety and/or upper extremity function for ADL's. Plan of Care: Functional Mobility, Group Exercise/Act as Ind, UE Funct Exercise/Act Treatment Duration: Jan 18, 2023 Frequency: 1 time per week Estimated Hrs Per Day: .25 hour per day Agreement: Yes Rehab Potential: Good Time Start Time: 09:10 Stop Time: 09:29 DATE: Jan 19, 2023 Total Time Billed (hr/min): 19 Billed Treatment Time ADL 19 min JORDAN FORD OT Jan 19, 2023 13:10
== END 2023-01-19 12:40 | DRG 543 ==
LOC: EDUNIT# 12:07 → ER 12:09 → 4TH 16:59
PROVIDERS: ADMIT Family Medicine; ATTEND Internal Medicine
DX: C79.51 Secondary malignant neoplasm of bone (principal); N17.9 Acute kidney failure, unspecified; R53.1 Weakness; D63.8 Anemia in other chronic diseases classified elsewhere; N39.46 Mixed incontinence; K59.00 Constipation, unspecified; E87.5 Hyperkalemia; I50.9 Heart failure, unspecified; Z66 Do not resuscitate; N18.9 Chronic kidney disease, unspecified; I48.91 Unspecified atrial fibrillation; E03.9 Hypothyroidism, unspecified; E78.00 Pure hypercholesterolemia, unspecified; F41.9 Anxiety disorder, unspecified; F32.A Depression, unspecified; H91.90 Unspecified hearing loss, unspecified ear; S61.412D Laceration without foreign body of left hand, subsequent encounter; S70.02XD Contusion of left hip, subsequent encounter; Z79.01 Long term (current) use of anticoagulants; Z85.46 Personal history of malignant neoplasm of prostate; Z90.79 Acquired absence of other genital organ(s); Z95.0 Presence of cardiac pacemaker; Z95.2 Presence of prosthetic heart valve; Z79.899 Other long term (current) drug therapy; Z23 Encounter for immunization; W01.0XXD Fall on same level from slipping, tripping and stumbling without subsequent striking against object, subsequent encounter
CPT/HCPCS: 36415; 51701; 70450; 71045; 74176; 80053; 81000; 83735; 83880; 84100; 84153; 84443; 84484; 85025; 85027; 93005; 93041

== ENCOUNTER → 2023-02-02 | Outpatient (RCR) | payer MEDICARE ==
[~2023-02-02] MED LIST changes: +ACHD5005 PO; +AMIO200T65 PO; +APIX2.5T PO; +ATOR40TA PO; +ATOR40TA70 PO; +CYCL5TAB PO; +DOCU100C37 PO; +LEVO100T PO; +LISI10TA25 PO; +METO50TA7 PO; +ONDA4TAB11 PO; +SPIR25TA5 PO; +TRM50T PO
== END | disposition home or self-care (01) ==
LOC: ONC 01-21 08:23
PROVIDERS: ATTEND Radiology Radiation Oncology
DX: I11.0 Hypertensive heart disease with heart failure (principal); I50.42 Chronic combined systolic (congestive) and diastolic (congestive) heart failure; I48.20 Chronic atrial fibrillation, unspecified; E78.2 Mixed hyperlipidemia; I34.0 Nonrheumatic mitral (valve) insufficiency; Z79.01 Long term (current) use of anticoagulants; Z95.0 Presence of cardiac pacemaker; Z90.79 Acquired absence of other genital organ(s)
CPT/HCPCS: 77300; 77301; 77336; 77338; 77386; 77470

== ENCOUNTER 2023-02-03 08:29 | Outpatient (RCR) | payer MEDICARE | END 2023-03-04 | disposition home or self-care (01) | LOC: ONC 08:29 | PROVIDERS: ATTEND Radiology Radiation Oncology | DX: Z51.0 Encounter for antineoplastic radiation therapy (principal); C80.1 Malignant (primary) neoplasm, unspecified; C79.51 Secondary malignant neoplasm of bone; I11.0 Hypertensive heart disease with heart failure; I50.42 Chronic combined systolic (congestive) and diastolic (congestive) heart failure; I48.20 Chronic atrial fibrillation, unspecified; E78.2 Mixed hyperlipidemia; I34.0 Nonrheumatic mitral (valve) insufficiency; Z79.01 Long term (current) use of anticoagulants; Z95.0 Presence of cardiac pacemaker; Z90.79 Acquired absence of other genital organ(s); Z85.46 Personal history of malignant neoplasm of prostate | CPT/HCPCS: 77336; 77386 ==